=== PATIENT | male | born 1965 | race Caucasian/White ===

== ENCOUNTER 2017-03-19 09:07 | Inpatient (IN) | payer OTHER ==
[2017-03-19] VITALS (7 sets, daily range): BP systolic 114–130; BP diastolic 74–84; PULSE 78–82; TEMP 37.1–37.5; O2SAT 93–95; Ht 172.7 cm; Wt 86.2 kg
[~2017-03-19] VITALS: Ht 172.7 cm; Wt 86.2 kg
[~2017-03-19 09:07] MED LIST: ASPI81TA28 PO; ATOR-24 PO; CLC100 PO; LISI-461 PO; MRLP527 PO
[2017-03-19] MEDS ORDERED: SODIUM CHLORIDE 0.9% 1000ML 500 ML IV STA (09:20)
[2017-03-19] MEDS ORDERED: NITROGLYCERIN OINT 2% 1GM PACKET EXT STA (09:20)
[2017-03-19 09:32] LABS: HEMATOCRIT 46.6 % (42-52); MEAN CELL VOLUME 103.3 fL (80-100); MEAN CORPUSCULAR HEMOGLOBIN 37.7 pg (25-34); MEAN CORPUSCULAR HGB CONC 36.5 g/dl (32-36); MEAN PLATELET VOLUME 10.5 fL (7.4-10.4); PLATELET COUNT 266 K/uL (130-400); RED BLOOD COUNT 4.51 M/uL (4.7-6.1); WHITE BLOOD COUNT 9.05 K/uL (4.8-10.8)
[2017-03-19 09:36] LABS: PROTHROMBIN TIME (PATIENT) 10.9 SECONDS (9.0-12.0)
[2017-03-19 09:41] LABS: ALT/SGPT 55 U/L (12-78); AST/SGOT 25 U/L (15-37); BLOOD UREA NITROGEN 6 mg/dl (7-18); BUN/CREATININE RATIO 6.5 (10-20); CARBON DIOXIDE 28 mmol/L (21-32); CHLORIDE 102 mmol/L (98-107); CREATININE 0.86 mg/dl (0.60-1.40); GLUCOSE 114 mg/dl (70-99); SODIUM 141 mmol/L (136-145)
[2017-03-19 09:43] LABS: ALKALINE PHOSPHATASE 81 U/L (45-117); CKMB/CK RATIO 1.3 (0-3.0)
--- NOTE | 2017-03-19 09:48 | DIAGNOSTIC IMAGING REPORT ---
SINGLE VIEW CHEST CLINICAL HISTORY: Atypical chest pain. FINDINGS: An AP, portable, upright chest radiograph is compared to study dated 11/30/2014 and correlated with chest CT dated 08/29/2015. The examination is degraded by portable technique and patient rotation. The heart is enlarged and there is atherosclerotic calcification of the thoracic aorta. Mild pulmonary vascular congestion is suggested. Chronic interstitial thickening is similar to previous. There is no lobar consolidation or large pleural effusion. No pneumothorax is seen. The skeletal structures are osteopenic. There are healed right-sided rib fractures. IMPRESSION: 1. Cardiomegaly. Mild pulmonary vascular congestion is suggested. Clinical correlation will be required. 2. No airspace consolidation or large pleural effusion is identified Electronically signed by: Mayito Niño M.D. 03/19/2017 9:47 AM Dictated Date/Time: 03/19/2017 9:46 AM
[2017-03-19] MEDS: MoRPHine SULFATE 4 MG/ML 1 ML CARP\\VIAL IV PRN ×2 (10:42→12:10)
[2017-03-19 10:59] LABS: ESTIMATED AVERAGE GLUCOSE 103 mg/dl; HA1C FLAG Normal (Normal)
[2017-03-19] MEDS ORDERED: ATORVASTATIN 40 MG TAB PO SCH (11:50)
[2017-03-19] MEDS ORDERED: METOPROLOL TARTRATE 50 MG TAB PO STA (11:58)
[2017-03-19] MEDS ORDERED: ZOLPIDEM TARTRATE 5 MG TAB PO PRN (12:00)
[2017-03-19] MEDS ORDERED: MoRPHine SULFATE 4 MG/ML 1 ML CARP\\VIAL IV PRN (12:00)
[2017-03-19] MEDS ORDERED: ACETAMINOPHEN 325 MG TAB PO PRN (12:00)
[2017-03-19] MEDS ORDERED: ONDANSETRON INJ 2 MG/ML 2 ML VIAL IV PRN (12:00)
[2017-03-19] MEDS ORDERED: NITROGLYCERIN 0.4 MG SL PER TAB CHARGE SL PRN (12:00)
[2017-03-19] MEDS ORDERED: HEPARIN SOD 5000 UNIT/0.5 ML CARP ONE (12:25)
[2017-03-19] MEDS ORDERED: HEPARIN 25000 UNIT/500 ML D5W ONE (12:25)
--- NOTE | 2017-03-19 12:40 | Medical Student: [facility] ---
Med Student History & Physical Date & Time of Service: Mar 19, 2017 at 12:01 Chief Complaint: Chest Pain Primary Care Physician: Ramsey Collado D.O.Int.Med. History of Present Illness Source: patient Mr. Knutson is a 51 year old male with a PMH significant for inferior wall STEMI in 2009 with thrombectomy of right coronary artery, HTN, depression, acute costochondritis, alcohol intoxication, and fracture of metatarsal bone who presented this morning with chest pain that began at 0730. The chest pain was described as tightness and woke him up from sleep. He had associated radiation of pain to his left shoulder and left upper arm. There was no associated SOB, diaphoresis, or nausea at the time. At home, he took Nitro and 2 ASA before ambulance arrived. ALS then administered 324 ASA and 3 Nitro which provided relief. On admission to the ED, he was tachycardic at 98, hypertensive at 142/ 85 and afebrile. Initial EKG showed NS, possible ST elevation in anterior leads , evidence of prior infarct with q waves in II, III, and AVF, and a long QTc of 521. He continues to have 5/10 baseline tightness pain and intermittent 10/10 sharp, stabbing pain. He continues to be tachycardic at 92, but is now hypotensive at 125/88 and is sating well at 94% on RA. He was given 500 cc NS, nitro ointment, and 4 mg Morphine at 1030. He has not experienced chest pain since his last VA in 2009. At that time, he had a catheterization which showed 100% thrombosis, but no atherosclerotic disease in any other coronary arteries. Echo at the time showed normal EF of 60- 65%, inferior wall & septal hypokinesis, right ventricular systolic dysfunction & wall motion abnormalities and grade 1 diastolic dysfunction. Past Medical/Surgical History 1) Inferior wall STEMI (2009) s/p catheterization with thrombectomy 2) HTN 3) Depression 4) Alcohol abuse 5) Acute costochondritis 6) Fracture metatarsal bone Family History Father - suicide Social History Smoking Status: Current Every Day Smoker (3 ppd since 17 years old ) Alcohol Use: heavy (5th of vodka daily ) Drug Use: none Immunizations History of Influenza Vaccine: No History of Tetanus Vaccine?: No History of Pneumococcal: No History of Hepatitis B Vaccine: No Allergies Coded Allergies: No Known Allergies (Unverified , 7/5/17) Medications No Active Prescriptions or Reported Meds Review of Systems Constitutional: No fever, No chills Eyes: No worsening of vision ENT: No hearing loss Respiratory: + shortness of breath, No cough, No wheezing Cardiovascular: + chest pain, No edema, No palpitations Abdomen: No pain, No nausea, No vomiting, No diarrhea, No constipation Musculoskeletal: No joint pain Genitourinary - Male: No hematuria, No dysuria Psychiatric: + depression symptoms Physical Exam Vital Signs (24 Hours) Date Time Temp Pulse Resp B/P (MAP) Pulse Ox O2 Delivery O2 Flow Rate FiO2 03/19/17 11:28 99 16 138/88 99 Room Air 03/19/17 10:41 99 16 129/80 94 Room Air 03/19/17 10:31 94 Room Air 03/19/17 09:49 92 17 125/88 94 Room Air 03/19/17 09:14 100 Room Air 03/19/17 09:14 100 Room Air 03/19/17 09:14 37.2 97 17 142/85 96 Room Air 03/19/17 09:12 98 General Appearance: WD/WN, + mild distress Head: normocephalic, atraumatic Eyes: PERRL, EOMI, sclerae normal ENT: normal ENT inspection Neck: supple, no adenopathy, thyroid normal Respiratory/Chest: chest non-tender, lungs clear, normal breath sounds, no respiratory distress Cardiovascular: regular rate, rhythm, no edema, no gallop, no JVD, no murmur, normal peripheral pulses Abdomen/GI: normal bowel sounds, non tender, soft, no organomegaly Extremities/Musculoskelatal: no calf tenderness, normal capillary refill, no pedal edema 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, no motor/sensory deficits Diagnostics Laboratory Results Results Past 24 Hours Test 03/19/17 09:10 03/19/17 11:51 Range/Units White Blood Count 9.05 4.8-10.8 K/uL Red Blood Count 4.51 4.7-6.1 M/uL Hemoglobin 17.0 14.0-18.0 g/dL Hematocrit 46.6 42-52 % Mean Corpuscular Volume 103.3 80-100 fL Mean Corpuscular Hemoglobin 37.7 25-34 pg Mean Corpuscular Hemoglobin Concent 36.5 32-36 g/dl RDW Standard Deviation 49.3 36.4-46.3 fL RDW Coefficient of Variation 13.1 11.5-14.5 % Platelet Count 266 130-400 K/uL Mean Platelet Volume 10.5 7.4-10.4 fL Prothrombin Time 10.9 9.0-12.0 SECONDS Prothromb Time International Ratio 1.0 0.9-1.1 Activated Partial Thromboplast Time 25.1 21.0-31.0 SECONDS Partial Thromboplastin Ratio 1.0 Sodium Level 141 136-145 mmol/L Potassium Level 3.0 3.5-5.1 mmol/L Chloride Level 102 98-107 mmol/L Carbon Dioxide Level 28 21-32 mmol/L Anion Gap 11.0 3-11 mmol/L Blood Urea Nitrogen 6 7-18 mg/dl Creatinine 0.86 0.60-1.40 mg/dl Est Creatinine Clear Calc Drug Dose 106.1 ml/min Estimated GFR () 115.6 Estimated GFR (Non- 99.7 BUN/Creatinine Ratio 6.5 10-20 Random Glucose 114 70-99 mg/dl Estimated Average Glucose 103 mg/dl Hemoglobin A1c 5.2 4.5-5.6 % Calcium Level 9.0 8.5-10.1 mg/dl Magnesium Level 2.0 1.8-2.4 mg/dl Total Bilirubin 0.2 0.2-1 mg/dl Aspartate Amino Transf (AST/SGOT) 25 15-37 U/L Alanine Aminotransferase (ALT/SGPT) 55 12-78 U/L Alkaline Phosphatase 81 45-117 U/L Total Creatine Kinase 63 39-308 U/L Creatine Kinase MB 0.8 0.5-3.6 ng/ml Creatine Kinase MB Ratio 1.3 0-3.0 Troponin I < 0.015 0-0.045 ng/ml Total Protein 6.9 6.4-8.2 gm/dl Albumin 3.5 3.4-5.0 gm/dl Globulin 3.4 2.5-4.0 gm/dl Albumin/Globulin Ratio 1.0 0.9-2 Diagnostic Radiology CXR 03/19/17 SINGLE VIEW CHEST CLINICAL HISTORY: Atypical chest pain. FINDINGS: An AP, portable, upright chest radiograph is compared to study dated 11/30/2014 and correlated with chest CT dated 08/29/2015. The examination is degraded by portable technique and patient rotation. The heart is enlarged and there is atherosclerotic calcification of the thoracic aorta. Mild pulmonary vascular congestion is suggested. Chronic interstitial thickening is similar to previous. There is no lobar consolidation or large pleural effusion. No pneumothorax is seen. The skeletal structures are osteopenic. There are healed right-sided rib fractures. IMPRESSION: 1. Cardiomegaly. Mild pulmonary vascular congestion is suggested. Clinical correlation will be required. 2. No airspace consolidation or large pleural effusion is identified Impression Assessment and Plan Mr. Knutson is a 51 year old male with a PMH significant for inferior wall STEMI in 2009 with thrombectomy of right coronary artery, HTN, depression, acute costochondritis, alcohol intoxication, and fracture of metatarsal bone who presented this morning with chest pain that began at 0730. CXR showed cardiomegaly and pulmonary vascular congestion, but no pneumothorax or consolidation. EKG showed NS, tachycardia of 99 bpm, possible ST elevation in the anterior leads, long QTc of 521, and evidence of prior inferior infarct with q waves in II, III, and AVF. It is likely this patient has ACS based on presentation, EKG findings, hx of prior VA, and risk factors. His risk factors for ACS include age of 51, smoking history, uncontrolled HTN, and being overweight. CXR and the fact the patient is afebrile with no cough rule out pneumonia. Aortic dissection was considered, but the patient is not having pain radiating to his back. PE was also considered, but the patient is not hypoxic and has no complaints of lower extremity pain or swelling. Additionally, MSK related pain was considered, but the patient is not tender to palpation of the chest on examination. 1) ACS - most likely STEMI based on EKG findings -repeat EKG, possibility for PCI if STEMI evident (ST elevation of >1mm in 2 contiguous leads) -initial troponin @ 0910 <0.015, track serial troponin levels -start metoprolol 25 mg PO BID -start unfractionated heparin 60 mg/kg bolus then 12 units/kg/hr (do not exceed 5000 units), track PTT with target 1.5-2 -start ASA 81 mg PO daily -start Atorvastatin 80 mg PO daily -start JITENDRA-I if EF <40% -start Plavix if patient undergoes catheterization and stenting, post-procedure -risk factor assessment of ACS -hgb A1C 5.2, no pre-diabetes -fasting lipid panel ordered -start O2 NC, sating at 93% -morphine and Nitro PRN -consult cardiology -admit to telemetry 2) Hypokalemia -potassium 3 on admission -Mg normal at 2 -start IVF w/ 10 mEq KCl 3) Hyperglycemia -glucose on admission 114 -HbA1C 5.2, no prediabetes evident -continue to track glucose with daily CMP 4) Prior inferior wall STEMI in 2009 -start ASA 81 mg PO daily -start metoprolol 25 mg PO BID 5) HTN - Hypertensive on admission at 142/85, normotensive now at 125/88 -start metoprolol 25 mg PO BID -start JITENDRA-I if EF <40% 6) Pulmonary vascular congestion on CXR - investigate for CHF based on patient' s hx of VA and various risk factors -2 D echo ordered, will evaluate mean arterial pressure for possible pulmonary HTN Level of Care Telemetry Advanced Directives Existing Living Will: No 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
[2017-03-19] MEDS ORDERED: HEPARIN IV BOLUS 6,000 UNIT in SYRINGE 0 ML IV ONE (12:45)
--- NOTE | 2017-03-19 13:48 | EMERGENCY ROOM VISIT NOTE ---
History Report prepared by Sandra: Nelia Urena Under the Supervision of: Dr. Mayito Hills M.D. First contact with patient: 09:16 Chief Complaint: CHEST PAIN Stated Complaint: CHEST PAIN Nursing Triage Summary: C/O CP that started this AM. Woke him from sleep. [place] 6 years ago. Tightness in center of chest. Denies radiating pain at present time. ALS gave 324 ASA and 3 nitro which patient says helped. History of Present Illness The patient is a 51 year old male who presents to the Emergency Room with complaints of nearly resolved midsternal chest pain that started about 2 hours ago, around 0730. The patient came to the ED via ambulance from home. He was given 324 mg of aspirin and 3 nitroglycerin en route to the ED which seemed to improve his pain. He took a nitroglycerin at home as well as 2 aspirin prior to the ambulance arrival. He describes the pain as tightness currently. He is also experiencing pain in his left shoulder and upper arm. He denies any shortness of breath, nausea, or sweating associated with the pain. The patient had an [place] 6 years ago and had 1 stent placed at that time. The patient did not experience any pain yesterday. The patient is a smoker and has hypertension but is noncompliant with his medications. He denies any history of diabetes. The patient does not use aspirin on a regular basis. Source of History: patient Onset: about 2 hours ago, around 0730 Position: chest (midsternal) Quality: other (tightness) Timing: resolved Modifying Factors (Relieving): other (aspirin, nitroglycerin) Associated Symptoms: No diaphoresis, No SOB, No nausea Note: left shoulder, left upper arm Review of Systems See HPI for pertinent positives & negatives. A total of 10 systems reviewed and were otherwise negative. Past Medical & Surgical Medical Problems: (1) ACS (acute coronary syndrome) (2) DEPRESSIVE DISORDER NEC (3) DIAB JULIÁN WO COMPL, TYPE II OR UNSPEC TYPE, NOT UNCNTRLD (4) HEART DISEASE NOS (5) HYPERTENSION NOS (6) Infer AMI NEC, init episd (7) TOBACCO USE DISORDER Family History No significant family history Social History Smoking Status: Heavy Tobacco Smoker Alcohol Use: heavy Marital Status: in relationship Housing Status: lives with significant other Current/Historical Medications No Active Prescriptions or Reported Meds Allergies Coded Allergies: No Known Allergies (Unverified , 03/19/17) Physical Exam Vital Signs Date Time Temp Pulse Resp B/P (MAP) Pulse Ox O2 Delivery O2 Flow Rate FiO2 03/19/17 13:52 89 18 111/79 95 Nasal Cannula 2.0 03/19/17 13:06 93 03/19/17 12:55 93 17 129/84 96 Nasal Cannula 2.0 03/19/17 12:10 96 Nasal Cannula 2.0 03/19/17 12:08 93 16 125/84 95 Room Air 03/19/17 11:28 99 16 138/88 99 Room Air 03/19/17 10:41 99 16 129/80 94 Room Air 03/19/17 10:31 94 Room Air 03/19/17 09:49 92 17 125/88 94 Room Air 03/19/17 09:14 100 Room Air 03/19/17 09:14 100 Room Air 03/19/17 09:14 37.2 97 17 142/85 96 Room Air 03/19/17 09:12 98 Physical Exam GENERAL: Patient is in no acute distress. HEENT: No acute trauma, normocephalic atraumatic, mucous membranes moist, no nasal congestion, no scleral icterus. NECK: No stridor, no adenopathy, no meningismus, trachea is midline. CHEST: Nontender chest wall. LUNGS: Clear to auscultation bilaterally, no wheeze, no rhonchi, breath sounds equal. HEART: Without murmurs gallops or rubs, regular rate and rhythm. ABDOMEN: Soft, nontender, bowel sounds positive, no hernias, no peritonitis. EXTREMITIES: No cyanosis or edema, full range of motion of all the joints without pain or difficulty, no signs for acute trauma. NEUROLOGIC: Oriented x 3, no acute motor or sensory deficits, no focal weakness. SKIN: No rash, no jaundice, no diaphoresis. Medical Decision & Procedures ER Provider Diagnostic Interpretation: Radiology results as stated below per my review and radiologist interpretation: SINGLE VIEW CHEST FINDINGS: An AP, portable, upright chest radiograph is compared to study dated 11/30/2014 and correlated with chest CT dated 08/29/2015. The examination is degraded by portable technique and patient rotation. The heart is enlarged and there is atherosclerotic calcification of the thoracic aorta. Mild pulmonary vascular congestion is suggested. Chronic interstitial thickening is similar to previous. There is no lobar consolidation or large pleural effusion. No pneumothorax is seen. The skeletal structures are osteopenic. There are healed right-sided rib fractures. IMPRESSION: 1. Cardiomegaly. Mild pulmonary vascular congestion is suggested. Clinical correlation will be required. 2. No airspace consolidation or large pleural effusion is identified Electronically signed by: Mayito Niño M.D. 03/19/2017 9:47 AM Dictated Date/Time: 03/19/2017 9:46 AM Laboratory Results 03/19/17 09:10 03/19/17 09:10 Test 03/19/17 09:10 Red Blood Count 4.51 M/uL (4.7-6.1) Mean Corpuscular Volume 103.3 fL (80-100) Mean Corpuscular Hemoglobin 37.7 pg (25-34) Mean Corpuscular Hemoglobin Concent 36.5 g/dl (32-36) RDW Standard Deviation 49.3 fL (36.4-46.3) RDW Coefficient of Variation 13.1 % (11.5-14.5) Mean Platelet Volume 10.5 fL (7.4-10.4) Prothrombin Time 10.9 SECONDS (9.0-12.0) Prothromb Time International Ratio 1.0 (0.9-1.1) Activated Partial Thromboplast Time 25.1 SECONDS (21.0-31.0) Partial Thromboplastin Ratio 1.0 Anion Gap 11.0 mmol/L (3-11) Est Creatinine Clear Calc Drug Dose 106.1 ml/min Estimated GFR () 115.6 Estimated GFR (Non- 99.7 BUN/Creatinine Ratio 6.5 (10-20) Estimated Average Glucose 103 mg/dl Hemoglobin A1c 5.2 % (4.5-5.6) Calcium Level 9.0 mg/dl (8.5-10.1) Magnesium Level 2.0 mg/dl (1.8-2.4) Total Bilirubin 0.2 mg/dl (0.2-1) Aspartate Amino Transf (AST/SGOT) 25 U/L (15-37) Alanine Aminotransferase (ALT/SGPT) 55 U/L (12-78) Alkaline Phosphatase 81 U/L (45-117) Total Protein 6.9 gm/dl (6.4-8.2) Albumin 3.5 gm/dl (3.4-5.0) Globulin 3.4 gm/dl (2.5-4.0) Albumin/Globulin Ratio 1.0 (0.9-2) Triglycerides Level 182 mg/dl (0-150) Cholesterol Level 213 mg/dl (0-200) HDL Cholesterol 72 mg/dl LDL Cholesterol, Calculated 105 mg/dl VLDL Cholesterol, Calculated 36 mg/dl Cholesterol/HDL Ratio 3.0 Hepatitis C Antibody Screen NEG (NEG) Laboratory results reviewed by me. Medications Administered Medications (Trade) Dose Ordered Sig/Patty Route Start Time Stop Time Status Last Admin Dose Admin Sodium Chloride 500 ml @ 999 mls/hr Q31M STAT IV 03/19/17 09:20 03/19/17 09:50 DC 03/19/17 09:20 999 MLS/HR Nitroglycerin (Nitroglycerin 2% Oint) 1 inch NOW STAT EXT 03/19/17 09:20 03/19/17 09:22 DC 03/19/17 09:34 1 INCH Morphine Sulfate (MoRPHine SULFATE INJ) 4 mg Q15M PRN IV 03/19/17 10:30 04/02/17 10:29 03/19/17 12:10 4 MG Atorvastatin Calcium (Lipitor Tab) 80 mg 1150 PO 03/19/17 11:50 03/19/17 13:40 DC 03/19/17 13:51 80 MG Metoprolol Tartrate (Lopressor Tab) 25 mg NOW STAT PO 03/19/17 11:58 03/19/17 12:22 DC 03/19/17 13:52 25 MG Heparin Sodium/ Dextrose (Heparin 25,000 Unit/500ml D5W) 25,000 unit STK-MED ONCE .ROUTE 03/19/17 12:25 03/19/17 12:26 DC 03/19/17 12:30 25,000 UNIT Heparin Sodium (Porcine) (Heparin Sq 5000 Unit/0.5ml) 10,000 unit STK-MED ONCE .ROUTE 03/19/17 12:25 03/19/17 12:26 DC 03/19/17 12:29 6,000 UNIT ECG Indication: chest pain Rate (beats per minute): 99 Rhythm: normal sinus Findings: no ectopy, other (nonspecific T wave change, no acute [place]) Change: Repeat EKG on 03/19/2017 revealed a normal sinus rhythm, rate of 86, no acute ischemic changes, no ectopy ED Course 0917: The patient was evaluated in room B11. A complete history and physical exam was performed. 0920: Ordered Nitroglycerin 1 inch EXT, Sodium Chloride 500 ml @ 999 mls/hr IV 0949: The patient's nurse did a repeat EKG because the patient started to experience chest pain again. 1019: Upon reexamination the patient is resting comfortably. I discussed results and treatment plan with the patient. He verbalizes agreement and understanding. The patient will be evaluated for further management. 1105: Dr. Goodwin of the [facility] is evaluating the patient for further management. Medical Decision Differential diagnoses considered include [place], angina, musculoskeletal, aortic dissection, PE, pneumonia, anemia. Medication Reconciliation: I attest that I have personally reviewed the patient' s current medication list. Blood Pressure Screening: Patient was found to have a midly elevated blood pressure and was referred to his primary doctor for recheck and further treatment. There is no leukocytosis or concerning anemia. No significant electrolyte abnormality, kidney failure or hepatitis. There is no coagulopathy. EKG shows a normal sinus rhythm, no acute ischemia. Cardiac enzyme testing 1 is not consistent with acute cardiac injury. Chest x-ray does not show pneumonia, mediastinal widening or pneumothorax. The patient was given IV saline, he was given nitroglycerin paste. Required IV morphine for additional pain control. The patient presents with chest pain which sounds possibly cardiac. He has a cardiac history. Further workup in the hospital is warranted. I spoke to the patient, I talked with case management. The on-call hospitalist was consulted. Impression Primary Impression: Precordial chest pain Scribe Attestation The scribe's documentation has been prepared under my direction and personally reviewed by me in its entirety. I confirm that the note above accurately reflects all work, treatment, procedures, and medical decision making performed by me. Departure Information Dispostion Being Evaluated By Hospitalist Prescriptions No Active Prescriptions or Reported Meds Referrals Ramsey Collado D.O.Int.Med. (PCP) Patient Instructions My [facility]
[2017-03-19] MEDS: MoRPHine SULFATE 2 MG/ML CARP IV PRN (15:35)
[2017-03-19] MEDS ORDERED: NURSING DECISION MEDICATION ORDER SCH (16:00)
[2017-03-19] MEDS: POTASSIUM CHLR 10 MEQ / WTR 10 MEQ in PREMIXED WATER 100 ML IV SCH ×3 (16:05→17:30)
[2017-03-19] MEDS: NSS + 20MEQ KCL 1000ML 1,000 ML IV SCH (16:06)
[2017-03-19] MEDS: HEPARIN 25,000 UNIT/500ML D5W 500 ML IV PRN (16:08)
--- NOTE | 2017-03-19 16:24 | Cardiology Consultation ---
Cardiology Consultation Date of Consultation: Mar 19, 2017. Requesting Physician: Dr. Goodwin Reason for Consultation: Chest pain Pt evaluation today including: conversation w/ patient, conversation w/ family , physical exam, lab review, review of studies, review of inpatient medication list, conversation w/ attending History of Present Illness This is a 51-year-old gentleman who has a history of right coronary artery occlusion which were cried thrombectomy in 2009. He has been doing well from the cut vascular standpoint since then, however awoke at around 8:00 this morning with waxing and waning chest discomfort. The discomfort sounds pleuritic , is exacerbated by inspiration and does not have radiation to his left arm or shoulder. It does not seem to be exercise related. It is different from his symptoms in 2010. He has no shortness of breath or palpitations with it. Past Medical/Surgical History (1) DEPRESSIVE DISORDER NEC (2) DIAB JULIÁN WO COMPL, TYPE II OR UNSPEC TYPE, NOT UNCNTRLD (3) HYPERTENSION NOS (4) TOBACCO USE DISORDER (5) Fracture of metatarsal bone (6) Recurrent epistaxis Family History No significant family history Social History Smoking Status: Heavy Tobacco Smoker History of Alcohol Use: Yes (1/5 VODKA A DAY OR MORE) Review of Systems Constitutional: No fever, No weight loss, No weakness Respiratory: No cough, No wheezing, No shortness of breath, No dyspnea on exertion Cardiac: + chest pain (Worse with inspiration), No orthopnea, No PND, No edema , No palpitations Abdomen: No pain, No nausea, No vomiting, No diarrhea, No GI bleeding Male : No urinary frequency, No nocturia more than once/night, No slowing stream, No sexual dysfunction Neurologic: No paralysis, No weakness, No numbness/tingling, No balance problems Heme: No abnormal bleeding/bruising, No clotting problems Endo: No fatigue Skin: No problem reported All Other Systems: Reviewed and Negative Allergies Coded Allergies: No Known Allergies (Unverified , 03/19/17) Medications Current Inpatient Medications Medications (Trade) Dose Ordered Sig/Patty Route Start Time Stop Time Status Last Admin Dose Admin Potassium Chloride 10 meq/ Prmx 100 ml @ 100 mls/hr Q1H IV 03/19/17 15:30 03/19/17 18:29 03/19/17 16:05 100 MLS/HR Atorvastatin Calcium (Lipitor Tab) 80 mg QAM PO 03/20/17 09:00 04/19/17 08:59 Ondansetron HCl (Zofran Inj) 4 mg Q6H PRN IV 03/19/17 12:00 04/18/17 11:59 Potassium Chloride/Sodium Chloride 1,000 ml @ 100 mls/hr Q10H IV 03/19/17 15:45 04/18/17 15:44 03/19/17 16:06 100 MLS/HR Acetaminophen (Tylenol Tab) 650 mg Q4H PRN PO 03/19/17 12:00 04/18/17 11:59 Zolpidem Tartrate (Ambien Tab) 5 mg HSZ PRN PO 03/19/17 12:00 04/18/17 11:59 Nitroglycerin (Nitrostat Tab) 0.4 mg UD PRN SL 03/19/17 12:00 04/18/17 11:59 Metoprolol Tartrate (Lopressor Tab) 25 mg BID PO 03/19/17 21:00 04/18/17 20:59 Aspirin (Ecotrin Tab) 81 mg QAM PO 03/20/17 09:00 04/19/17 08:59 Morphine Sulfate (MoRPHine SULFATE INJ) 2 mg Q2H PRN IV 03/19/17 12:00 04/02/17 11:59 03/19/17 15:35 2 MG Morphine Sulfate (MoRPHine SULFATE INJ) 4 mg Q2H PRN IV 03/19/17 12:00 04/02/17 11:59 Heparin Sodium/ Dextrose 500 ml @ 27 mls/hr [id number] PRN IV 03/19/17 15:30 04/18/17 15:29 03/19/17 16:08 27 MLS/HR Nitroglycerin (Nitroglycerin 2% Oint) 2 inch Q8 EXT 03/19/17 22:00 04/18/17 21:59 Physical Exam Vital Signs Past 12 Hours Date Time Temp Pulse Resp B/P (MAP) Pulse Ox O2 Delivery O2 Flow Rate FiO2 03/19/17 15:05 37.2 78 19 118/79 (92) 93 Nasal Cannula 2.0 03/19/17 13:52 89 18 111/79 95 Nasal Cannula 2.0 03/19/17 13:06 93 03/19/17 12:55 93 17 129/84 96 Nasal Cannula 2.0 03/19/17 12:10 96 Nasal Cannula 2.0 03/19/17 12:08 93 16 125/84 95 Room Air 03/19/17 11:28 99 16 138/88 99 Room Air 03/19/17 10:41 99 16 129/80 94 Room Air 03/19/17 10:31 94 Room Air 03/19/17 09:49 92 17 125/88 94 Room Air 03/19/17 09:14 100 Room Air 03/19/17 09:14 100 Room Air 03/19/17 09:14 37.2 97 17 142/85 96 Room Air 03/19/17 09:12 98 Constitutional: General Apperance: heathly-appearing Level of Distress: NAD Psychiatric: Mental Status: active & alert Head: normocephalic Eyes: EOM: EOMI ENMT: normal ENT inspection, hearing grossly normal Neck: supple, no masses Lungs: Respiratory effort: no dyspnea, good air movement Auscultation: breath sounds normal, no wheezing Cardiovascular: Heart Auscultation: RRR, no murmurs, no rubs, no gallops Peripheral Pulses: Bruits: none appreciated Abdomen: Bowel Sounds: normal Inspection & Palpation: soft, no tenderness, guarding & rebound, no masses Musculoskeletal: normal strength (5/5 throughout) Extremities: no edema Neurologic: Cranial Nerves: grossly intact Sensation: grossly intact Data Laboratory Results: Last 24 Hours Test 03/19/17 09:10 03/19/17 14:10 White Blood Count 9.05 K/uL Red Blood Count 4.51 M/uL Hemoglobin 17.0 g/dL Hematocrit 46.6 % Mean Corpuscular Volume 103.3 fL Mean Corpuscular Hemoglobin 37.7 pg Mean Corpuscular Hemoglobin Concent 36.5 g/dl RDW Standard Deviation 49.3 fL RDW Coefficient of Variation 13.1 % Platelet Count 266 K/uL Mean Platelet Volume 10.5 fL Prothrombin Time 10.9 SECONDS Prothromb Time International Ratio 1.0 Activated Partial Thromboplast Time 25.1 SECONDS Partial Thromboplastin Ratio 1.0 Sodium Level 141 mmol/L Potassium Level 3.0 mmol/L Chloride Level 102 mmol/L Carbon Dioxide Level 28 mmol/L Anion Gap 11.0 mmol/L Blood Urea Nitrogen 6 mg/dl Creatinine 0.86 mg/dl Est Creatinine Clear Calc Drug Dose 106.1 ml/min Estimated GFR () 115.6 Estimated GFR (Non- 99.7 BUN/Creatinine Ratio 6.5 Random Glucose 114 mg/dl Estimated Average Glucose 103 mg/dl Hemoglobin A1c 5.2 % Calcium Level 9.0 mg/dl Magnesium Level 2.0 mg/dl Total Bilirubin 0.2 mg/dl Aspartate Amino Transf (AST/SGOT) 25 U/L Alanine Aminotransferase (ALT/SGPT) 55 U/L Alkaline Phosphatase 81 U/L Total Creatine Kinase 63 U/L 45 U/L Creatine Kinase MB 0.8 ng/ml < 0.5 ng/ml Creatine Kinase MB Ratio 1.3 Troponin I < 0.015 ng/ml < 0.015 ng/ml Total Protein 6.9 gm/dl Albumin 3.5 gm/dl Globulin 3.4 gm/dl Albumin/Globulin Ratio 1.0 Triglycerides Level 182 mg/dl Cholesterol Level 213 mg/dl HDL Cholesterol 72 mg/dl LDL Cholesterol, Calculated 105 mg/dl VLDL Cholesterol, Calculated 36 mg/dl Cholesterol/HDL Ratio 3.0 Hepatitis C Antibody Screen NEG Imaging: No acute change EKG: ECG including with chest discomfort in his room now is normal, no acute changes Telemetry reviewed: SR, no significant arrhythmia Assessment & Plan 1. Chest discomfort: Waxing and waning but present for the most part since this AM before 0800, therefore over 8 hours. Recent second set of enzymes negative, ECG with chest pain negative for ischemia. Doubt this is a coronary event. Sounds pleuritic based on symptoms. Suggest continued enzyme trend, keep on telemetry overnight, no urgent intervention. Will keep NPO for tomorrow in case things change. 2. Hx RCA occlusion, at that time had substernal chest discomfort and inferior ST elevation. This does not seem to be similar. Thank You
[2017-03-19] MEDS ORDERED: NITROGLYCERIN OINT 2% 1GM PACKET EXT SCH (18:00)
[2017-03-19] MEDS ORDERED: NURSING VERBAL MED ORDER ONE (18:00)
[2017-03-19] MEDS ORDERED: LORAZEPAM 2 MG/ML 1 ML VIAL IV PRN (18:15)
[2017-03-19] MEDS: METOPROLOL TARTRATE 25 MG TAB PO SCH (18:38)
[2017-03-19 19:38] LABS: PARTIAL THROMBOPLASTIN RATIO 2.1
[2017-03-19] MEDS: THIAMINE HCL 100 MG TAB PO SCH (20:03)
[2017-03-19] MEDS ORDERED: METOPROLOL TARTRATE 25 MG TAB PO SCH (21:00)
[2017-03-19] MEDS: NITROGLYCERIN OINT 2% 1GM PACKET EXT SCH (22:20)
[2017-03-20] VITALS (7 sets, daily range): BP systolic 110–129; BP diastolic 72–82; PULSE 81–87; TEMP 36.7–37.3; O2SAT 94–96
[2017-03-20] MEDS: METOPROLOL TARTRATE 25 MG TAB PO SCH ×3 (00:09→11:07)
[2017-03-20] MEDS: NSS + 20MEQ KCL 1000ML 1,000 ML IV SCH ×2 (02:06→11:07)
--- NOTE | 2017-03-20 04:09 | History and Physical ---
History & Physical Date & Time of Service: Mar 20, 2017 at 03:59. The patient was seen on 03/19/2017. Chief Complaint: Acute Coronary Syndrome Primary Care Physician: Ramsey Collado D.O.Int.Med. History of Present Illness Source: patient The patient is a 51-year-old male who is brought to the emergency department by EMS with midsternal chest pain that began about 2 hours prior to arrival. En route he was given 3 had 24 mg of aspirin and 3 nitroglycerin which improved his pain. He had taken nitroglycerin at home and 2 aspirin prior to every once arrival. His symptoms are that of tightness in his chest with pain in his left shoulder and left upper arm. He did not have any associated shortness of breath , nausea, sweating, lower extremity discomfort or numbness. His significant past medical history is that of an inferior wall STEMI in June 2010 with catheterization revealing 100% RCA occlusion for which she underwent a thrombectomy, with 30% residual due to spasm, which is relieved by IV nitroglycerin, to reveal 100% flow postprocedure. Other significant medical history is a 3 pack per day smoker and drinks 1/5 of vodka daily. Past Medical/Surgical History Medical Problems: (1) DEPRESSIVE DISORDER NEC Status: Chronic (2) DIAB JULIÁN WO COMPL, TYPE II OR UNSPEC TYPE, NOT UNCNTRLD Status: Chronic (3) Fracture of metatarsal bone Status: Resolved (4) HEART DISEASE NOS Status: Chronic (5) HYPERTENSION NOS Status: Chronic (6) Infer AMI NEC, init episd Status: Chronic (7) Recurrent epistaxis Status: Chronic (8) TOBACCO USE DISORDER Status: Chronic Family History No significant family history Social History Smoking Status: Current Every Day Smoker Smokeless Tobacco Use: No Alcohol Use: heavy (5th of vodka daily ) Drug Use: none Marital Status: in relationship Occupational Status: employed Immunizations History of Influenza Vaccine: No History of Tetanus Vaccine?: No History of Pneumococcal: No History of Hepatitis B Vaccine: No Multi-Drug Resistant Organisms History of MDRO: No Allergies Coded Allergies: No Known Allergies (Unverified , 03/19/17) Home Medications No Active Prescriptions or Reported Meds Review of Systems The patient denies cough, lower extremity swelling, sore throat, fevers, chills , sweats, weight change, fatigue, vomiting, abdominal pain, pelvic pain, blood in urine or stool, dysuria, urinary frequency or urgency, lightheadedness, dizziness, headache, memory loss, rash, abnormal bruising or bleeding, imbalance , focal or generalized weakness, numbness or tingling legs, generalized arthralgias or myalgias, night sweats, or allergy symptoms. The review of systems is otherwise negative other than for that already noted above, and at least 10 systems have been reviewed. Physical Exam Vital Signs Date Time Temp Pulse Resp B/P (MAP) Pulse Ox O2 Delivery O2 Flow Rate FiO2 03/20/17 03:20 36.7 81 18 110/72 (85) 94 03/20/17 00:00 Nasal Cannula 2.0 03/19/17 23:52 37.5 81 18 117/75 (89) 94 2.0 03/19/17 23:02 37.1 80 22 130/84 (99) 95 Nasal Cannula 2.0 03/19/17 20:00 94 Nasal Cannula 2.0 03/19/17 19:35 37.4 82 19 114/74 (87) 94 Room Air 03/19/17 16:00 93 Nasal Cannula 2.0 03/19/17 15:05 37.2 78 19 118/79 (92) 93 Nasal Cannula 2.0 03/19/17 13:52 89 18 111/79 95 Nasal Cannula 2.0 03/19/17 13:06 93 03/19/17 12:55 93 17 129/84 96 Nasal Cannula 2.0 03/19/17 12:10 96 Nasal Cannula 2.0 03/19/17 12:08 93 16 125/84 95 Room Air 03/19/17 11:28 99 16 138/88 99 Room Air 03/19/17 10:41 99 16 129/80 94 Room Air 03/19/17 10:31 94 Room Air 03/19/17 09:49 92 17 125/88 94 Room Air 03/19/17 09:14 100 Room Air 03/19/17 09:14 100 Room Air 03/19/17 09:14 37.2 97 17 142/85 96 Room Air 03/19/17 09:12 98 The patient is awake, well-developed and adequately nourished, alert and oriented 3, normocephalic and atraumatic, lying in bed and in no acute distress. HEENT--PERRL, EOMI, mucous membranes and oropharynx dry. Neck--supple, no JVD or bruits, thyroid normal, trachea midline, no adenopathy. Heart--normal S1 and S2, no extra beats, no murmurs, rubs or gallops. Lungs--few coarse rhonchi bilaterally, but diminished throughout. No respiratory distress, no accessory muscle use. Abdomen--normal bowel sounds and soft, nontender and nondistended, no hernias or masses, no organomegaly. Extremities--no cyanosis, clubbing or edema. There are good distal pulses b/l. Dermatologic--normal skin turgor, normal color, warm and dry, no abnormal lymph nodes, no rash. Neurologic--cranial nerves II through XII grossly intact, motor and sensory examination normal. Rheumatologic--normal range of motion, nontender, muscles and joints. Psychiatric--normal affect. Diagnostics Laboratory Results Results Past 24 Hours Test 03/19/17 09:10 03/19/17 14:10 03/19/17 19:05 03/20/17 03:51 Range/Units White Blood Count 9.05 4.8-10.8 K/uL Red Blood Count 4.51 4.7-6.1 M/uL Hemoglobin 17.0 14.0-18.0 g/dL Hematocrit 46.6 42-52 % Mean Corpuscular Volume 103.3 80-100 fL Mean Corpuscular Hemoglobin 37.7 25-34 pg Mean Corpuscular Hemoglobin Concent 36.5 32-36 g/dl RDW Standard Deviation 49.3 36.4-46.3 fL RDW Coefficient of Variation 13.1 11.5-14.5 % Platelet Count 266 130-400 K/uL Mean Platelet Volume 10.5 7.4-10.4 fL Prothrombin Time 10.9 9.0-12.0 SECONDS Prothromb Time International Ratio 1.0 0.9-1.1 Activated Partial Thromboplast Time 25.1 54.6 21.0-31.0 SECONDS Partial Thromboplastin Ratio 1.0 2.1 Sodium Level 141 136-145 mmol/L Potassium Level 3.0 3.5-5.1 mmol/L Chloride Level 102 98-107 mmol/L Carbon Dioxide Level 28 21-32 mmol/L Anion Gap 11.0 3-11 mmol/L Blood Urea Nitrogen 6 7-18 mg/dl Creatinine 0.86 0.60-1.40 mg/dl Est Creatinine Clear Calc Drug Dose 106.1 ml/min Estimated GFR () 115.6 Estimated GFR (Non- 99.7 BUN/Creatinine Ratio 6.5 10-20 Random Glucose 114 70-99 mg/dl Estimated Average Glucose 103 mg/dl Hemoglobin A1c 5.2 4.5-5.6 % Calcium Level 9.0 8.5-10.1 mg/dl Magnesium Level 2.0 1.8-2.4 mg/dl Total Bilirubin 0.2 0.2-1 mg/dl Aspartate Amino Transf (AST/SGOT) 25 15-37 U/L Alanine Aminotransferase (ALT/SGPT) 55 12-78 U/L Alkaline Phosphatase 81 45-117 U/L Total Creatine Kinase 63 45 41 39-308 U/L Creatine Kinase MB 0.8 < 0.5 < 0.5 0.5-3.6 ng/ml Creatine Kinase MB Ratio 1.3 0-3.0 Troponin I < 0.015 < 0.015 < 0.015 0-0.045 ng/ml Total Protein 6.9 6.4-8.2 gm/dl Albumin 3.5 3.4-5.0 gm/dl Globulin 3.4 2.5-4.0 gm/dl Albumin/Globulin Ratio 1.0 0.9-2 Triglycerides Level 182 0-150 mg/dl Cholesterol Level 213 0-200 mg/dl HDL Cholesterol 72 mg/dl LDL Cholesterol, Calculated 105 mg/dl VLDL Cholesterol, Calculated 36 mg/dl Cholesterol/HDL Ratio 3.0 Hepatitis C Antibody Screen NEG NEG Diagnostic Radiology Patient Name: EDITH WOODS Unit Number: [id number] Dictated: 03/19/17945 Transcribed: 03/19/17945 EV Printed Date/Time: [~ rep prt dt]/[~ rep prt tm] [~ rep ct labl] - [~ rep ct ivnm] [facility] [place] [address] Dictated: 03/19/17945 Transcribed: 03/19/17945 EV Printed Date/Time: [~ rep prt dt]/[~ rep prt tm] [~ rep ct labl] - [~ rep ct ivnm] SINGLE VIEW CHEST CLINICAL HISTORY: Atypical chest pain. FINDINGS: An AP, portable, upright chest radiograph is compared to study dated 11/30/2014 and correlated with chest CT dated 08/29/2015. The examination is degraded by portable technique and patient rotation. The heart is enlarged and there is atherosclerotic calcification of the thoracic aorta. Mild pulmonary vascular congestion is suggested. Chronic interstitial thickening is similar to previous. There is no lobar consolidation or large pleural effusion. No pneumothorax is seen. The skeletal structures are osteopenic. There are healed right-sided rib fractures. IMPRESSION: 1. Cardiomegaly. Mild pulmonary vascular congestion is suggested. Clinical correlation will be required. 2. No airspace consolidation or large pleural effusion is identified Electronically signed by: Mayito Niño M.D. 03/19/2017 9:47 AM Dictated Date/Time: 03/19/2017 9:46 AM The status of this report is Signed. Draft = Not yet reviewed or approved by Radiologist. Signed = Reviewed and approved by Radiologist. <AttendingPhy></AttendingPhy> <FamilyPhy>Ramsey Collado D.O.Int.Med.</ FamilyPhy> <PrimaryPhy>Ramsey Collado D.O.Int.Med.</PrimaryPhy> <UnitNumber> [id number]</UnitNumber> <VisitNumber>[id number]</VisitNumber> <PatientName> EDITH WOODS</PatientName> <DateOfBirth>1965</DateOfBirth> <Location>C[facility] </Location> <ServiceDate>03/19/17</ServiceDate> <MNE>ESINDI</MNE> <OrderingPhy> [place] M.D.</OrderingPhy> <OrderingPhyMNE>f rep ord dr mota</ OrderingPhyMNE> <DictatingPhyMNE>f rep dict dr mota</DictatingPhyMNE> <CCListMNE> f rep ct mne</CCListMNE> <AdmittingPhyMNE>f pt admit dr mota</AdmittingPhyMNE> < AttendingPhyMNE>f pt attend dr mota</AttendingPhyMNE> <ConsultingPhyMNE>f pt consult dr mota</ConsultingPhyMNE> <FamilyPhyMNE>f pt fam dr mota</FamilyPhyMNE> <OtherPhyMNE>f pt other dr mota</OtherPhyMNE> < PrimaryPhyMNE>f pt prim care dr mota</PrimaryPhyMNE> <ReferringPhyMNE>f pt referring dr mota</ReferringPhyMNE> EKG EKG shows normal sinus rhythm at 99 bpm, nonspecific T wave changes in anterolateral leads. Impression Assessment and Plan Acute coronary syndrome/CAD/history of thrombectomy for 100% RCA occlusion June 2010--patient is being admitted to the telemetry unit for serial cardiac enzymes, cardiac rhythm monitoring and a 2-D echocardiogram with Dopplers will start metoprolol tartrate 25 mg by mouth twice a day Nitropaste 1 inch has been increased to 2 when she began to chest wall every 6 hours, aspirin 81 mg by mouth daily, and heparin drip IV standard-based protocol with bolus 5000. We'll consult cardiology. Hypokalemia--patient will be given 3 K riders, and follow serial laboratories. Tobacco use disorder--given counseling today, we'll hold on replacement at this time. Alcohol use disorder--start alcohol withdrawal program per protocol. Level of Care Telemetry Advanced Directives Existing Advance Directive: No Existing Living Will: No Existing Power of Bed Spring Maker: No Resuscitation Status FULL RESUSCITATION VTE Prophylaxis VTE Risk Assessment Done? Y/N: Yes Risk Level: Moderate Given or contraindicated: Other Anticoagulation (heparin IV per standard weight -based protocol) Social Service Consult None Apply
[2017-03-20 04:58] LABS: BLOOD UREA NITROGEN 10 mg/dl (7-18); CALCIUM 7.7 mg/dl (8.5-10.1); CARBON DIOXIDE 30 mmol/L (21-32); CHLORIDE 106 mmol/L (98-107); CREATININE 0.79 mg/dl (0.60-1.40); GLUCOSE 98 mg/dl (70-99); MAGNESIUM 1.8 mg/dl (1.8-2.4); POTASSIUM 3.3 mmol/L (3.5-5.1); SODIUM 141 mmol/L (136-145)
[2017-03-20 04:59] LABS: BASO % 1.6 %; BASO ABS # 0.16 K/uL (0-0.2); COMPLETE YES; EOS % 3.2 %; IG% 0.3 %; LYMPH % 26.3 %; LYMPH ABS # 2.57 K/uL (1.2-3.4); MEAN CELL VOLUME 106.2 fL (80-100); MEAN CORPUSCULAR HEMOGLOBIN 35.1 pg (25-34); MEAN PLATELET VOLUME 10.4 fL (7.4-10.4); MONO % 11.5 %; NEUT % 57.1 %; PLATELET COUNT 220 K/uL (130-400); RED BLOOD COUNT 4.05 M/uL (4.7-6.1); WHITE BLOOD COUNT 9.78 K/uL (4.8-10.8)
[2017-03-20 05:04] LABS: PARTIAL THROMBOPLASTIN RATIO 1.9; PROTHROMBIN TIME (PATIENT) 11.2 SECONDS (9.0-12.0)
[2017-03-20] MEDS: MoRPHine SULFATE 2 MG/ML CARP IV PRN (05:32)
[2017-03-20] MEDS: NITROGLYCERIN OINT 2% 1GM PACKET EXT SCH ×2 (05:39→13:55)
[2017-03-20] MEDS: HEPARIN 25,000 UNIT/500ML D5W 500 ML IV PRN (05:47)
[2017-03-20] MEDS: THIAMINE HCL 100 MG TAB PO SCH (07:43)
[2017-03-20] MEDS ORDERED: ASPIRIN 81 MG ECTAB PO SCH (09:00)
[2017-03-20] MEDS ORDERED: ATORVASTATIN 40 MG TAB PO SCH (09:00)
[2017-03-20] MEDS ORDERED: PERFLUTREN LIPID MICROSPHERE (DEFINITY) IV ONE (09:12)
--- NOTE | 2017-03-20 11:55 | ECHOCARDIOGRAM REPORT ---
*NOTICE TO RECEIVING [employer] This information is strictly Confidential and protected under [place] law. [place] law prohibits you from making any further disclosure of this information unless further disclosure is expressly permitted by the written consent of the person to whom it pertains or is authorized by law. A general authorization for the release of medical or other information is not sufficient for this purpose. Hospital accepts no responsibility if the information is made available to any other person, INCLUDING THE PATIENT. Interpretation Summary * Name: EDITH WOODS Study Date: 03/19/2017 03:28 PM BP: 125/93 mmHg * Patient Location: C.2T\S\S243\S\1 HR: 82 * : 1965 (M/d/yyyy) Gender: Male Height: 68 in * Age: 51 yrs Ethnicity: CA Weight: 187 lb * Ordering Physician: Main Goodwin * Referring Physician: Self, Referred * Performed By: Abbey Redd RCS * * Reason For Study: ACS * BSA: 2.0 m2 * -- Conclusions -- * There is borderline concentric left ventricular hypertrophy. * Left ventricular systolic function is low normal. * There are regional wall motion abnormalities as specified. * Compared to a study from 2009, the overall LV function is not as vigorous. Wall motion appears the same. Procedure Details * A contrast injection of Definity was performed to improve assessment of LV function. * Contrast was injected into an intravenous site in the left arm. * One vial of Definity ultrasound contrast was diluted in normal saline to a total volume of 10 ml. A total of '4' ml of solution was administered during imaging. * Lot # [id number] of Definity utilized for procedure. * Expiration date 1AUG18. * The attending nurse who injected the contrast agent was CEE ALCAZAR RN. Left Ventricle * The left ventricle is grossly normal size. * There is borderline concentric left ventricular hypertrophy. * Ejection Fraction = 50-55%. * Left ventricular systolic function is low normal. * There are regional wall motion abnormalities as specified. * Mild posterior hypokinesis Right Ventricle * The right ventricle is normal in size and function. Atria * The left atrium is not well visualized. * Right atrial size is normal. Mitral Valve * The mitral valve is grossly normal. * Significant mitral regurgitation is absent. Tricuspid Valve * The tricuspid valve is not well visualized. * Significant tricuspid regurgitation is absent. Aortic Valve * The aortic valve is trileaflet. * No hemodynamically significant valvular aortic stenosis. * There is no significant aortic regurgitation. Great Vessels * The aortic root is normal size. Pericardium/Pleural * The pericardium appears normal. * There is no pericardial effusion. MMode 2D Measurements and Calculations IVSd 0.92 cm LVIDd 5.2 cm LVIDs 3.7 cm LVPWd 1.2 cm IVS/LVPW 0.78 FS 29.4 % EDV(Teich) 130.9 ml ESV(Teich) 57.6 ml EF(Teich) 56.0 % EDV(cubed) 142.5 ml ESV(cubed) 50.1 ml EF(cubed) 64.9 % LV mass(C)d 210.0 grams LV mass(C)dI 105.7 grams/m\S\2 SV(Teich) 73.3 ml SI(Teich) 36.9 ml/m\S\2 SV(cubed) 92.5 ml SI(cubed) 46.6 ml/m\S\2 Ao root diam 3.1 cm Ao root area 7.5 cm\S\2 LVOT diam 2.0 cm LVOT area 3.3 cm\S\2 LVOT area(traced) 3.1 cm\S\2 LVAd ap4 23.8 cm\S\2 LVLd ap4 8.8 cm EDV(MOD-sp4) 55.6 ml EDV(sp4-el) 54.6 ml LVAs ap4 13.0 cm\S\2 LVLs ap4 7.4 cm ESV(MOD-sp4) 23.1 ml ESV(sp4-el) 19.3 ml EF(MOD-sp4) 58.5 % EF(sp4-el) 64.6 % LVAd ap2 27.1 cm\S\2 LVLd ap2 8.5 cm EDV(MOD-sp2) 70.6 ml EDV(sp2-el) 73.4 ml LVAs ap2 14.4 cm\S\2 LVLs ap2 7.1 cm ESV(MOD-sp2) 24.8 ml ESV(sp2-el) 24.6 ml EF(MOD-sp2) 64.9 % EF(sp2-el) 66.4 % LVLd %diff -3.62 % EDV(MOD-bp) 63.6 ml LVLs %diff -3.94 % ESV(MOD-bp) 23.1 ml EF(MOD-bp) 63.7 % SV(MOD-sp4) 32.5 ml SI(MOD-sp4) 16.4 ml/m\S\2 SV(MOD-sp2) 45.9 ml SI(MOD-sp2) 23.1 ml/m\S\2 SV(MOD-bp) 40.5 ml SI(MOD-bp) 20.4 ml/m\S\2 SV(sp4-el) 35.2 ml SI(sp4-el) 17.7 ml/m\S\2 SV(sp2-el) 48.8 ml SI(sp2-el) 24.6 ml/m\S\2
--- NOTE | 2017-03-20 13:14 | Cardiology Follow-Up ---
Subjective Date of Service: Mar 20, 2017. Pt evaluation today including: conversation w/ patient, conversation w/ family , physical exam, lab review, review of studies, review of inpatient medication list History of Present Illness Patient currently feels well, he was downstairs for a test and had chest discomfort through the night and this morning, but reports that on return to the room his discomfort has resolved and is no longer having chest discomfort. Social History Smoking Status: Current Every Day Smoker History of Alcohol Use: Yes (1/5 VODKA A DAY OR MORE) Review of Systems Respiratory: No cough, No wheezing, No shortness of breath, No dyspnea on exertion Cardiac: + chest pain (Worse with inspiration), No orthopnea, No PND, No edema , No palpitations Objective Vital Signs Past 12 Hours Date Time Temp Pulse Resp B/P (MAP) Pulse Ox O2 Delivery O2 Flow Rate FiO2 03/20/17 12:19 96 Nasal Cannula 2.0 03/20/17 11:15 36.8 87 20 129/80 (96) 95 Nasal Cannula 1.5 03/20/17 08:01 96 Nasal Cannula 2.0 03/20/17 07:08 37.3 81 20 126/82 (97) 96 Nasal Cannula 2.0 03/20/17 04:00 Nasal Cannula 2.0 03/20/17 03:20 36.7 81 18 110/72 (85) 94 Last Recorded Weight-Kilograms: 86.200 Intake & Output 8-Hour Column 03/20/17 03/21/17 03/21/17 16:00 00:00 08:00 Output Total 0 ml Balance 0 ml 24-Hour Column 03/21/17 08:00 Output Total 0 ml Balance 0 ml Physical Exam Constitutional: General Apperance: heathly-appearing Level of Distress: NAD Lungs: Respiratory effort: no dyspnea, good air movement Auscultation: breath sounds normal, no wheezing Cardiovascular: Heart Auscultation: RRR, no murmurs, no rubs, no gallops Peripheral Pulses: Bruits: none appreciated Extremities: no edema Data Laboratory Results: Last 24 Hours Test 03/19/17 14:10 03/19/17 19:05 03/20/17 04:02 03/20/17 04:03 Total Creatine Kinase 45 U/L 41 U/L 40 U/L Creatine Kinase MB < 0.5 ng/ml < 0.5 ng/ml < 0.5 ng/ml Creatine Kinase MB Ratio Troponin I < 0.015 ng/ml < 0.015 ng/ml < 0.015 ng/ml Activated Partial Thromboplast Time 54.6 SECONDS 50.6 SECONDS Partial Thromboplastin Ratio 2.1 1.9 Prothrombin Time 11.2 SECONDS Prothromb Time International Ratio 1.0 White Blood Count 9.78 K/uL Red Blood Count 4.05 M/uL Hemoglobin 14.2 g/dL Hematocrit 43.0 % Mean Corpuscular Volume 106.2 fL Mean Corpuscular Hemoglobin 35.1 pg Mean Corpuscular Hemoglobin Concent 33.0 g/dl Platelet Count 220 K/uL Mean Platelet Volume 10.4 fL Neutrophils (%) (Auto) 57.1 % Lymphocytes (%) (Auto) 26.3 % Monocytes (%) (Auto) 11.5 % Eosinophils (%) (Auto) 3.2 % Basophils (%) (Auto) 1.6 % Neutrophils # (Auto) 5.59 K/uL Lymphocytes # (Auto) 2.57 K/uL Monocytes # (Auto) 1.12 K/uL Eosinophils # (Auto) 0.31 K/uL Basophils # (Auto) 0.16 K/uL RDW Standard Deviation 52.5 fL RDW Coefficient of Variation 13.4 % Immature Granulocyte % (Auto) 0.3 % Immature Granulocyte # (Auto) 0.03 K/uL Sodium Level 141 mmol/L Potassium Level 3.3 mmol/L Chloride Level 106 mmol/L Carbon Dioxide Level 30 mmol/L Anion Gap 5.0 mmol/L Blood Urea Nitrogen 10 mg/dl Creatinine 0.79 mg/dl Est Creatinine Clear Calc Drug Dose 116.1 ml/min Estimated GFR () 119.7 Estimated GFR (Non- 103.2 BUN/Creatinine Ratio 13.0 Random Glucose 98 mg/dl Calcium Level 7.7 mg/dl Magnesium Level 1.8 mg/dl Imaging: Echo shows low normal left ventricular function Telemetry reviewed: Sinus rhythm, no significant arrhythmia. Assessment and Plan 1. Chest discomfort: Waxing and waning but present for the most part since the AM of 03/19/2017 before 0800, evidently resolved this morning. All cardiac enzymes negative, ECG with chest pain negative for ischemia. No evidence that this is a coronary event. Sounds pleuritic based on symptoms. 2. Hx RCA occlusion, at that time had substernal chest discomfort and inferior ST elevation. This does not seem to be similar. No further cardiovascular evaluation at this time. Thank You
--- NOTE | 2017-03-20 16:20 | Discharge Instructions ---
Discharge Instructions Date of Service Mar 20, 2017. Admission Reason for Admission: Acute Coronary Syndrome Discharge Discharge Diagnosis / Problem: Pleuritic chest pain Discharge Goals Goal(s): Decrease discomfort Activity Recommendations Activity Limitations: resume your previous activity . Current Hospital Diet Patient's current hospital diet: AHA Diet (Heart Healthy) Discharge Diet Recommended Diet: AHA Diet (Heart Healthy) Pending Studies Studies pending at discharge: no Laboratory Results Hemoglobin A1c Test 03/19/17 09:10 Range/Units Estimated Average Glucose 103 mg/dl Hemoglobin A1c 5.2 4.5-5.6 % Lipid Panel Test 03/19/17 09:10 Range/Units Triglycerides Level 182 H 0-150 mg/dl Cholesterol Level 213 H 0-200 mg/dl HDL Cholesterol 72 mg/dl Cholesterol/HDL Ratio 3.0 LDL Cholesterol, Calculated 105 mg/dl Medical Emergencies . Who to Call and When: Medical Emergencies: If at any time you feel your situation is an emergency, please call 911 immediately. . Non-Emergent Contact Non-Emergency issues call your: Primary Care Provider . Past History Medical & Surgical History: (1) DIAB JULIÁN WO COMPL, TYPE II OR UNSPEC TYPE, NOT UNCNTRLD (2) HYPERTENSION NOS (3) TOBACCO USE DISORDER (4) ACS (acute coronary syndrome) . "Provider Documentation" section prepared by Mathieu Lopez. . VTE Core Measure Inpt VTE Proph given/why not?: Other Anticoagulation (heparin IV per standard weight-based protocol)
[2017-03-20] MEDS ORDERED: LPT40 PO (16:24)
[2017-03-20] MEDS ORDERED: ASPEC81 PO (16:24)
--- NOTE | 2017-04-06 22:56 | Discharge Summary ---
Discharge Summary Date of Service Apr 06, 2017. Discharge Summary Admission Date: Mar 19, 2017 at 13:57 Discharge Date: Mar 20, 2017 Discharge Disposition: Home Principal Diagnosis: atypical chest pain Immunizations: Have You Had Influenza Vaccine: No History of Tetanus Vaccine?: No History of Pneumococcal: No History of Hepatitis B Vaccine: No Medication Reconciliation New Medications: Aspirin (Aspirin EC Low Dose) 81 Mg Ectab 81 MG PO QAM for 30 Days Atorvastatin (Atorvastatin Calcium) 40 Mg Tab 80 MG PO QAM for 30 Days, #30 TAB Hospital Course Patient presented with atypical chest pain. Symptoms resolved troponins were negative. Echocardiogram had an EF of 50-55%. Cardiology evaluated the patient and based upon the atypical nature recommended no further cardiac workup at this time. Was discharged home in stable condition will follow-up with his primary care doctor in 1 week. Total Time Spent: Greater than 30 minutes This includes examination of the patient, discharge planning, medication reconciliation, and communication with other providers. Discharge Instructions Please refer to the electronic Patient Visit Report (Discharge Instructions) for additional information.
== END 2017-03-20 17:41 | disposition home or self-care (01) | DRG 311 ==
LOC: EDBD 09:07 → C.EDB 09:08 → C.2T 13:57 → ENRESERV 14:34
PROVIDERS: ADMIT Hospitalist; ATTEND Hospitalist
DX: I24.9 Acute ischemic heart disease, unspecified (principal); R07.81 Pleurodynia; E11.9 Type 2 diabetes mellitus without complications; I10 Essential (primary) hypertension; F17.210 Nicotine dependence, cigarettes, uncomplicated; E87.6 Hypokalemia; Z72.89 Other problems related to lifestyle

== ENCOUNTER → 2017-03-26 | Outpatient (CLI) | payer OTHER ==
[~2017-03-26] MED LIST changes: +ASPEC81 PO; -ASPI81TA28 PO; -ATOR-24 PO; -CLC100 PO; -LISI-461 PO; +LPT40 PO; -MRLP527 PO
[2017-03-26 13:10] LABS: ALT/SGPT 31 U/L (12-78); AST/SGOT 13 U/L (15-37); BLOOD UREA NITROGEN 7 mg/dl (7-18); BUN/CREATININE RATIO 8.1 (10-20); CALCIUM 9.1 mg/dl (8.5-10.1); CARBON DIOXIDE 31 mmol/L (21-32); CHLORIDE 103 mmol/L (98-107); CREATININE 0.93 mg/dl (0.60-1.40); GLUCOSE 88 mg/dl (70-99); POTASSIUM 3.3 mmol/L (3.5-5.1); SODIUM 142 mmol/L (136-145)
[2017-03-26 13:12] LABS: ALB/GLOB RATIO 0.9 (0.9-2); ALKALINE PHOSPHATASE 89 U/L (45-117); CHOLESTEROL 186 mg/dl (0-200); CHOLESTEROL/HDL RATIO 2.9; HDL CHOLESTEROL 65 mg/dl; LDL CHOLESTEROL CALCULATED 105 mg/dl; TRIGLYCERIDES 78 mg/dl (0-150); VERY LOW DENSITY LIPOPROT CALC 16 mg/dl
== END | disposition home or self-care (01) ==
LOC: C.LABPBG 10:17
PROVIDERS: ATTEND Neuromusculoskeletal Medicine & OMM
DX: Z00.00 Encounter for general adult medical examination without abnormal findings (principal); I10 Essential (primary) hypertension

== ENCOUNTER → 2017-12-23 | Outpatient (CLI) | payer OTHER ==
[~2017-12-23] MED LIST changes: -ASPEC81 PO; +ASPI-320 PO
[2017-12-23 16:49] LABS: BASO % 1.9 %; BASO ABS # 0.14 K/uL (0-0.2); EOS % 2.3 %; EOS ABS # 0.17 K/uL (0-0.5); HEMATOCRIT 52.4 % (42-52); HEMOGLOBIN 17.4 g/dL (14.0-18.0); IG# 0.02 K/uL (0.00-0.02); LYMPH % 29.2 %; LYMPH ABS # 2.12 K/uL (1.2-3.4); MEAN CELL VOLUME 102.7 fL (80-100); MEAN CORPUSCULAR HEMOGLOBIN 34.1 pg (25-34); MEAN CORPUSCULAR HGB CONC 33.2 g/dl (32-36); MEAN PLATELET VOLUME 10.6 fL (7.4-10.4); MONO ABS # 0.87 K/uL (0.11-0.59); NEUT % 54.3 %; NEUT ABS # 3.94 K/uL (1.4-6.5); PLATELET COUNT 217 K/uL (130-400); RED CELL DISTRIBUTION WIDTH CV 14.7 % (11.5-14.5); WHITE BLOOD COUNT 7.26 K/uL (4.8-10.8)
[2017-12-23 17:17] LABS: ALBUMIN 3.7 gm/dl (3.4-5.0); ALKALINE PHOSPHATASE 119 U/L (45-117); ALT/SGPT 39 U/L (12-78); AST/SGOT 23 U/L (15-37); BLOOD UREA NITROGEN 8 mg/dl (7-18); CALCIUM 9.4 mg/dl (8.5-10.1); CARBON DIOXIDE 30 mmol/L (21-32); CHOLESTEROL 262 mg/dl (0-200); CREATININE 0.98 mg/dl (0.60-1.40); GLUCOSE 101 mg/dl (70-99); POTASSIUM 3.9 mmol/L (3.5-5.1); SODIUM 137 mmol/L (136-145); TOTAL PROTEIN 7.8 gm/dl (6.4-8.2)
[2017-12-23 17:20] LABS: LDL CHOLESTEROL CALCULATED 161 mg/dl
== END | disposition home or self-care (01) ==
LOC: C.LABPBG 14:57
PROVIDERS: ATTEND Physician Assistant
DX: R10.11 Right upper quadrant pain (principal)

== ENCOUNTER → 2018-01-07 | Outpatient (CLI) | payer OTHER ==
--- NOTE | 2018-01-07 10:36 | DIAGNOSTIC IMAGING REPORT ---
ABDOMINAL ULTRASOUND, RIGHT UPPER QUADRANT HISTORY: Right upper quadrant abdominal pain.. COMPARISON: None. FINDINGS: Pancreas: The pancreatic tail is obscured by overlying bowel gas. The remaining portions of the pancreas are within normal limits. Liver: The liver is echogenic consistent with fatty change. Gallbladder: No gallbladder wall thickening. No gallstones. A 5 mm nodule adherent to the wall of the gallbladder consistent with a polyp. Ring down artifact at the gallbladder fundus suggestive of a small focus of adenomyomatosis. CBD: 5 mm. Right kidney: No hydronephrosis. IMPRESSION: 1. Hepatic steatosis. 2. A 5 mm gallbladder polyp. 3. No gallstones. No gallbladder wall thickening. Electronically signed by: Navjot Christianson M.D. 01/07/2018 10:34 AM Dictated Date/Time: 01/07/2018 10:33 AM
== END | disposition home or self-care (01) ==
LOC: C.ULTR 09:42
PROVIDERS: ATTEND Physician Assistant
DX: R10.11 Right upper quadrant pain (principal); K76.0 Fatty (change of) liver, not elsewhere classified; K82.4 Cholesterolosis of gallbladder

== ENCOUNTER 2021-02-06 10:39 | Inpatient (IN) ==
[2021-02-06] MEDS ORDERED: SODIUM CHLORIDE 0.9% 1000ML 1,000 ML IV STA (10:52)
[2021-02-06 11:35] LABS: Basophils % (auto) 0.6 %; Eosinophils # (auto) 0.03 K/uL (0-0.5); Eosinophils % (auto) 0.2 %; Hematocrit (blood only) 44.8 % (42-52); Immature Granulocytes # (auto) 0.06 K/uL (0.00-0.02); Immature Granulocytes % (auto) 0.4 %; Lymphocytes # (auto) 2.24 K/uL (1.2-3.4); Lymphocytes % (auto) 13.3 %; Mean Corpuscular Hemoglobin 34.3 pg (25-34); Mean Corpuscular Hgb Conc 33.5 g/dL (32-36); Mean Corpuscular Volume 102.5 fL (80-100); Mean Platelet Volume 10.3 fL (7.4-10.4); Monocytes % (auto) 10.7 %; Neutrophils # (auto) 12.66 K/uL (1.4-6.5); Neutrophils % (auto) 74.8 %; Platelet Count 433 K/uL (130-400); RDW Coefficient of Variation 12.6 % (11.5-14.5); RDW Standard Deviation 47.5 fL (36.4-46.3); Red Blood Count 4.37 M/uL (4.7-6.1); White Blood Count 16.89 K/uL (4.8-10.8)
[2021-02-06] MEDS ORDERED: SODIUM CHLORIDE 0.9% 1000ML 1,000 ML IV ONE (11:38)
--- NOTE | 2021-02-06 11:42 | Emergency Department Note ---
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 The patient states that he does have a history of tobacco use as well as pulmonary nodules. He states that his primary care physician has been following his pulmonary condition but recently found that he had worsening of his pulmonary status. He had a CT of the chest which showed a very large mass likely consistent with a neoplastic process. He was sent to pulmonary today and was sent from the churn driller office to the emergency department because of his vital signs and need for work-up of this pulmonary mass. I did receive a phone call from the patient's churn driller prior to arrival. The patient states that he has had a right-sided headache. He notices generalized weakness. He is noticed no nausea or vomiting. He has had no lower extremity swelling. He has noticed cough but no hemoptysis. He is also noticed very significant dyspnea on exertion. He states his symptoms are moderate to severe. He notices no fever. He does have a history of tobacco as well as alcohol use but does not drink as much alcohol recently. ROS: See above HPI for pertinent positives & negatives. A total of 10 systems reviewed and were otherwise negative. PAST MEDICAL HISTORY: See Below PAST SURGICAL HISTORY: See Below FAMILY HISTORY: See Below SOCIAL HISTORY: See Below HOME MEDICATIONS: See Below ALLERGIES: See Below VITALS: See Below PHYSICAL EXAMINATION: GENERAL: The patient is awake and alert. The patient is somewhat anxious appearing. EYES: The conjunctivae are clear. The pupils are round and reactive. EARS, NOSE, MOUTH AND THROAT: The nose is without any evidence of any deformity. NECK: The neck is nontender and supple. RESPIRATORY: Severely diminished breath sounds are noted in the right lung fi eld. There was significant tachypnea as well as conversational dyspnea noted. CARDIOVASCULAR: Tachycardic rate with regular rhythm was noted. No definite murmur was appreciated. GASTROINTESTINAL: The abdomen is soft. Abdomen is nontender. MUSCULOSKELETAL/EXTREMITIES: There is no evidence of gross deformity full range of motion is noted in the hips and shoulders. SKIN: There is no obvious evidence of any rash. There are no petechiae, pallor or cyanosis noted. NEUROLOGIC: Patient is awake alert and oriented x3. MEDICAL DECISION MAKING: The patient is a 55-year-old male who presented to the emergency department for an evaluation of difficulty breathing and weakness. The patient has a history of tobacco use. He also had severe shortness of breath which was worsening. He was sent to a pulmonary doctor for evaluation after his CAT scan showed a very large pulmonary mass. Once he was at the churn driller office he was found to have very unstable vital signs and was sent to the emergency department for further evaluation. The patient was treated with supplemental oxygen and IV fluids. His calcium was very elevated which is likely a paraneoplastic finding. The patient was feeling much better on subsequent reevaluation. I discussed th e findings of the patient's CAT scan with him. I discussed his case with the on-call [facility] hospitalist. They will evaluate the patient in the emergency department for further management and disposition. I discussed the case with pulmonary again and it sounds though they would like to do a bronchoscopy with biopsy tomorrow at noon. Triage Nursing notes reviewed. Prior medical records reviewed Vital Signs: reviewed and remarkable for tachycardia hypoxia and intermittent hypotension. Differential diagnosis: Reactive airway disease, pneumonia, pneumothorax, COPD, CHF, infections, cardiac ischemia, pulmonary embolism, musculoskeletal, gastrointestinal, as well as other pathologies. ER treatment provided: See below Diagnostics interpreted by me: ECG: EKG was obtained in the emergency department. My interpretation is sinus tachycardia at 130 bpm. There is no ectopy. There was no acute ST segment abnormalities noted. This was compared to a tracing from March 202016. There was an increase in the ventricular rate. Cardiac Monitoring: An order was placed for continuous cardiac monitoring. The monitor shows a rate of 120 bpm with sinus tach rhythm. Laboratory studies: As stated above and show below. Imaging studies: See below Consultation(s): 1350: I discussed this case with Dr. Villavicencio who is on-call for the [facility]. They will evaluate the patient in the emergency department. Past Med/Surg History Medical History Abdominal pain, RUQ (right upper quadrant) ACS (acute coronary syndrome) June 2010 100 percent RCA occlusion underwent thrombectomy Acute costochondritis Acute respiratory infection Alcohol abuse Arterial occlusion, lower extremity (~01/2021) 100% LT SFA occlusion from ostium with flow reconstitution and prox Pop A Conjunctivitis Constipation Coronary artery vasospasm Depressive disorder, not elsewhere classified (01/15/13) Dyspnea on exertion Elevated ferritin Elevated random blood glucose level Esophageal reflux Fall Foot fracture Fracture of metatarsal bone Fracture of metatarsal bone Gallbladder polyp Hepatic steatosis Hyperlipidemia Hypertension Hypokalemia Infer AMI NEC, init episd (01/15/13) Lung consolidation Multiple rib fractures Osteopenia determined by x-ray Proteinuria Pulmonary mass (02/05/21) IMPRESSION: 1. Pathologic mediastinal hilar and right axillary lymphadenopathy. 2. Suspected central pulmonary mass with obstruction of the right upper lobe bronchus 3. Multiple bilateral pulmonary nodules. Metastatic disease is the diagnosis of exclusion. Recurrent epistaxis Thrombocytosis Tobacco use disorder (01/15/13) Surgical History H/O coronary angiogram Family History Family/Other Alcohol abuse Mother Depression Father Alcohol abuse Depression Denies family history of Ovarian cancer Prostate cancer Myocardial infarction Colorectal cancer Social History Smoking Status: Current every day smoker Tobacco Type: Cigarettes Age Started Using Tobacco: 14; packs per day: 2; Second Hand Exposure: Yes; Do You Dip or Chew Tobacco: No; Hx Alcohol Use: Yes Hx Substance Use: No Preferred Language: Sinhala Communication Ability: Effective Visual Impairment: No Limitations Hearing Ability: Normal Pants Cutter Required: No Beliefs That Will Affect Care: None marital status: Current Living Situation: Significant Other Current Living Situation Comment: lives with girlfriend current occupational status: unemployed Other Information That Helps Us Care for You: No Feels Safe at Home: Yes Safety Concerns: Feels Safe At This Time caffeine: Yes during the past year weight has: decreased > 10 lbs Dental Care, Regularly: No Physical Activity Frequency: Does not Exercise Seatbelt Use: never Sunscreen Use: No Assistive Devices: None Allergies Allergies Allergy/AdvReac Type Severity Reaction Status Date / Time No Known Drug Allergies Allergy Verified 02/06/21 14:02 Home Meds Home Medications Medication Instructions Recorded Confirmed [id number] 1 inh INHALATION QAM 02/06/21 02/06/21 [Trelegy Ellipta] vitamin B complex-folic acid [B 1 tab PO QAM 02/06/21 02/06/21 Complex 1 (with folic acid)] Previous Rx's Medication Instructions Recorded cholecalciferol (vitamin D3) 1,250 50,000 unit PO WEEKLY 42 Days #6 01/19/21 mcg (50,000 unit) capsule cap albuterol sulfate 90 mcg/actuation 2 puff INHALATION Q6H PRN #18 g 02/06/21 aerosol inhaler Results & Data (ED) Vital Signs Vital Signs - 24 hr 02/06/21 10:44 02/06/21 11:22 02/06/21 11:26 Temperature 36.1 C L Temperature Source Temporal Artery Scan Pulse Rate 142 H 129 H 128 H Pulse Rate [Apical] 129 H Pulse Rate from SpO2 Sensor 128 H Pulse Rhythm Regular Pulse Rhythm [Apical] Regular Pulse Strength [Apical] Normal Respiratory Rate 20 28 H 30 H Respiratory Effort / Characteristics Non-Labored Respiratory Depth Normal Blood Pressure 105/75 92/77 L Blood Pressure [Right Arm] 92/77 L Blood Pressure Mean 85 82 Blood Pressure Mean [Right Arm] 82 Blood Pressure Position [Right Arm] Lying Pulse Oximetry 92 89 L 90 Oxygen Delivery Method Room Air Sepsis Recent Fever Within 48 Hours No Sepsis New/Unexplained Change in Mental Status No Sepsis Action Taken by Nursing No Action Required 02/06/21 11:30 02/06/21 12:00 02/06/21 12:30 Temperature Temperature Source Pulse Rate 123 H 111 H 115 H Pulse Rate [Apical] Pulse Rate from SpO2 Sensor 124 H 111 H 115 H Pulse Rhythm Pulse Rhythm [Apical] Pulse Strength [Apical] Respiratory Rate 31 H 30 H 27 H Respiratory Effort / Characteristics Respiratory Depth Blood Pressure 107/72 107/79 101/71 Blood Pressure [Right Arm] Blood Pressure Mean 83 88 81 Blood Pressure Mean [Right Arm] Blood Pressure Position [Right Arm] Pulse Oximetry 91 92 90 Oxygen Delivery Method Sepsis Recent Fever Within 48 Hours Sepsis New/Unexplained Change in Mental Status Sepsis Action Taken by Nursing 02/06/21 13:19 02/06/21 13:30 02/06/21 14:00 Temperature Temperature Source Pulse Rate 116 H 111 H 105 H Pulse Rate [Apical] Pulse Rate from SpO2 Sensor 116 H 111 H 105 H Pulse Rhythm Pulse Rhythm [Apical] Pulse Strength [Apical] Respiratory Rate 26 H 26 H 24 Respiratory Effort / Characteristics Respiratory Depth Blood Pressure 119/73 115/75 111/73 Blood Pressure [Right Arm] Blood Pressure Mean 88 88 85 Blood Pressure Mean [Right Arm] Blood Pressure Position [Right Arm] Pulse Oximetry 91 92 90 Oxygen Delivery Method Sepsis Recent Fever Within 48 Hours Sepsis New/Unexplained Change in Mental Status Sepsis Action Taken by Longterm Medications Current Medication List: was personally reviewed by me Laboratory Data Attestation: I reviewed the patient's lab results. Result diagrams: 02/06/21 11:29 02/06/21 11:29 Lab Results 02/06/21 02/06/21 02/06/21 Range/Units 11:29 11:29 11:29 WBC 16.89 H (4.8-10.8) K/uL RBC 4.37 L (4.7-6.1) M/uL Hgb 15.0 (14.0-18.0) g/dL Hct 44.8 (42-52) % MCV 102.5 H (80-100) fL MCH 34.3 H (25-34) pg MCHC 33.5 (32-36) g/dL RDW Std Deviation 47.5 H (36.4-46.3) fL RDW Coeff of Apolonia 12.6 (11.5-14.5) % Plt Count 433 H (130-400) K/uL MPV 10.3 (7.4-10.4) fL Immature Gran % (Auto) 0.4 % Neut % (Auto) 74.8 % Lymph % (Auto) 13.3 % Sac % (Auto) 10.7 % Eos % (Auto) 0.2 % Baso % (Auto) 0.6 % Neut # (Auto) 12.66 H (1.4-6.5) K/uL Lymph # (Auto) 2.24 (1.2-3.4) K/uL Sac # (Auto) 1.80 H (0.11-0.59) K/uL Eos # (Auto) 0.03 (0-0.5) K/uL Baso # (Auto) 0.10 (0-0.2) K/uL Immature Gran # (Auto) 0.06 H (0.00-0.02) K/uL PT 11.5 (9.0-12.0) Seconds INR 1.1 (0.9-1.1) APTT 22.5 (21.0-31.0) Seconds PTT Ratio 0.9 Sodium 137 (136-145) mmol/L Potassium 4.1 (3.5-5.1) mmol/L Chloride 98 (98-107) mmol/L Carbon Dioxide 33 H (21-32) mmol/L Anion Gap 6.0 (3-11) BUN 19 H (7-18) mg/dl Creatinine 0.93 (0.6-1.4) mg/dl Est Cr Clr Drug Dosing 85.8 ml/min Est GFR ( Amer) 106.0 ml/min Est GFR (Non-Af Amer) 91.4 ml/min BUN/Creatinine Ratio 20.7 H (10-20) Glucose 137 H (70-99) mg/dl Calcium 14.1 H* (8.5-10.1) mg/dl Magnesium 2.3 (1.8-2.4) mg/dl Total Bilirubin 0.4 (0.2-1) mg/dl AST 23 (15-37) U/L ALT 17 (12-78) U/L Alkaline Phosphatase 128 H (45-117) U/L Troponin I < 0.015 (0-0.045) ng/ml Total Protein 7.4 (6.4-8.2) gm/dl Albumin 2.5 L (3.4-5.0) gm/dl Globulin 4.9 H (2.5-4.0) gm/dl Albumin/Globulin Ratio 0.5 L (0.9-2) Lipase 71 L (73-393) U/L COVID-19 Eval Order SARS-CoV-2 (PCR) (Negative) 02/06/21 02/06/21 Range/Units 11:35 11:35 WBC (4.8-10.8) K/uL RBC (4.7-6.1) M/uL Hgb (14.0-18.0) g/dL Hct (42-52) % MCV (80-100) fL MCH (25-34) pg MCHC (32-36) g/dL RDW Std Deviation (36.4-46.3) fL RDW Coeff of Apolonia (11.5-14.5) % Plt Count (130-400) K/uL MPV (7.4-10.4) fL Immature Gran % (Auto) % Neut % (Auto) % Lymph % (Auto) % Sac % (Auto) % Eos % (Auto) % Baso % (Auto) % Neut # (Auto) (1.4-6.5) K/uL Lymph # (Auto) (1.2-3.4) K/uL Sac # (Auto) (0.11-0.59) K/uL Eos # (Auto) (0-0.5) K/uL Baso # (Auto) (0-0.2) K/uL Immature Gran # (Auto) (0.00-0.02) K/uL PT (9.0-12.0) Seconds INR (0.9-1.1) APTT (21.0-31.0) Seconds PTT Ratio Sodium (136-145) mmol/L Potassium (3.5-5.1) mmol/L Chloride (98-107) mmol/L Carbon Dioxide (21-32) mmol/L Anion Gap (3-11) BUN (7-18) mg/dl Creatinine (0.6-1.4) mg/dl Est Cr Clr Drug Dosing ml/min Est GFR ( Amer) ml/min Est GFR (Non-Af Amer) ml/min BUN/Creatinine Ratio (10-20) Glucose (70-99) mg/dl Calcium (8.5-10.1) mg/dl Magnesium (1.8-2.4) mg/dl Total Bilirubin (0.2-1) mg/dl AST (15-37) U/L ALT (12-78) U/L Alkaline Phosphatase (45-117) U/L Troponin I (0-0.045) ng/ml Total Protein (6.4-8.2) gm/dl Albumin (3.4-5.0) gm/dl Globulin (2.5-4.0) gm/dl Albumin/Globulin Ratio (0.9-2) Lipase (73-393) U/L COVID-19 Eval Order Covid19 at [facility] SARS-CoV-2 (PCR) NEGATIVE (Negative) Administered Medications Folic Acid (Folic Acid 1 Mg Tab) 1 mg PO QAM GODWIN Stop: 03/08/21 08:59 Last Admin: 02/06/21 16:25 Dose: Not Given Documented by: [id number] Sodium Chloride (Nss 1000ml) 1,000 mls @ 125 mls/hr IV .Q8H GODWIN Stop: 03/08/21 15:28 Last Admin: 02/06/21 16:32 Dose: 125 mls/hr Documented by: [id number] Thiamine HCl (Thiamine Hcl 100 Mg Tab) 100 mg PO QAM GODWIN Stop: 03/08/21 08:59 Last Admin: 02/06/21 16:26 Dose: Not Given Documented by: [id number] Discontinued Medications Sodium Chloride (Nss 1000ml) 1,000 mls @ 999 mls/hr IV .Q1H1M STA Stop: 02/06/21 11:52 Last Infusion: 02/06/21 12:38 Dose: 0 mls/hr Documented by: [id number] Admin: 02/06/21 11:27 Dose: 999 mls/hr Documented by: [id number] Sodium Chloride (Nss 1000ml) 1,000 mls @ 999 mls/hr IV .Q1H1M ONE Stop: 02/06/21 12:38 Last Infusion: 02/06/21 14:08 Dose: 0 mls/hr Documented by: [id number] Admin: 02/06/21 13:16 Dose: 999 mls/hr Documented by: [id number] Ioversol (Optiray 350 500ml) 118 ml IV ONCE ONE Stop: 02/06/21 13:14 Last Admin: 02/06/21 13:13 Dose: 118 ml Documented by: [id number] Imaging Data Radiologist's Impression: Abdomen/Pelvis CT 02/06/21 10:52 CT OF THE ABDOMEN AND PELVIS WITH CONTRAST CLINICAL HISTORY: Lung cancer COMPARISON STUDY: Abdominal ultrasound February 05, 2021. TECHNIQUE: Following IV administration of 118 mL of Optiray, axial images of the abdomen and pelvis were obtained from the lung bases to the proximal femurs. Images were reviewed in the axial, sagittal, and coronal planes. IV contrast was administered without complication. Automated exposure control was utilized for the study. A dose lowering technique was utilized adhering to the principles of ALARA. FINDINGS: Please note that the chest CT will be reported separately. Multiple pulmonary nodules are better depicted on that exam. There is an indeterminate 1.7 cm lateral segment hepatic lesion on image 82 of 456. This deforms the capsule. There is no biliary or pancreatic ductal dilatation. A 1.6 cm right adrenal nodule is similar to prior chest CT of August 29, 2015. Mildly enlarged periceliac node measures 1.2 cm. This has increased in size since prior chest CT. A few subcentimeter renal lesions favor cysts. There is no hydronephrosis. The caliber and wall thickness of small and large bowel are normal. Colonic diverticulosis without evidence for acute diverticulitis. There is no evidence for a bowel obstruction. Major vasculature is patent. Numerous lytic skeletal lesions are noted. These include lesions within the S1 and S2 vertebral bodies. Right iliac bone lytic lesion is noted. There are smaller left iliac bone lesions Multilevel degenerative changes within lumbar spine are present. IMPRESSION: 1. Numerous lytic skeletal metastases, including S1 and S2 vertebral body lesions without evidence for epidural extension at these levels. 2. Indeterminate 1.7 cm lateral segment hepatic lesion. This may reflect a metastasis. 3. Mildly enlarged periceliac lymph node. ACT 112: Negative or not required by law. Electronically signed by: Elgin Herr M.D. 02/06/2021 1:47 PM Chest CTA 02/06/21 10:53 CT ANGIOGRAM OF THE CHEST CLINICAL HISTORY: Atypical chest pain. Possible pulmonary embolism. History of lung carcinoma. COMPARISON STUDY: 02/05/2021 TECHNIQUE: Following the IV administration of 118 mL of Optiray, CT angiogram of the thorax was performed from the thoracic inlet to the lung bases utilizing the pulmonary embolus protocol. Images are reviewed in the axial, sagittal, and coronal planes. IV contrast was administered without complication. MIP imaging was performed. A dose lowering technique was utilized adhering to the principles of ALARA. CT DOSE: 2090.68 mGy.cm FINDINGS: There are enlarged right supraclavicular lymph nodes, mediastinal lymph nodes, hilar lymph nodes, as well as an enlarged right axillary lymph node. There was no evidence of thoracic aortic dilatation. There were no pulmonary artery filling defects to indicate acute pulmonary embolism. Examination is compromised due to respiratory motion artifact. No pleural effusions are visualized. There are pleural calcifications present. Evaluation the lung parenchyma is limited due to respiratory motion artifact. There are multiple bilateral pulmonary nodules suspicious for metastatic disease. There is obstruction of the right upper lobe bronchus with secondary dense consolidation of the right upper lobe. A centrally obstructing mass is suspected. It is difficult to accurately differentiate the mass from the surrounded consolidated lung. Airspace opacities are also present within the right middle lobe. There are multiple lytic skeletal foci, consistent with skeletal metastasis. The most significant of which involves the right T3 pedicle and transverse process with right-sided epidural spread with mild secondary spinal canal narrowing. IMPRESSION: 1. No evidence of acute pulmonary embolism given the technical limitations of motion compromised study 2. Pathologic axillary mediastinal and hilar lymphadenopathy 3. Multiple bilateral pulmonary nodules viewed as highly suspicious for metastatic disease 4. Trace right pleural effusion and pleural calcifications 5. Obstruction of the right upper lobe bronchus secondary to a suspected centrally obstructing mass. Accurate determination of the size of the right upper lobe mass is difficult as it is difficult to differentiate with certainty the mass from the secondary consolidated lung 6. Multifocal lytic skeletal metastasis. The most significant lesion involves the right T3 pedicle and transverse process with right-sided epidural spread ACT 112: Negative or not required by law. Electronically signed by: Jose Martin Ho M.D. 02/06/2021 1:[address] 02/06/21 11:10 CT SCAN OF THE BRAIN COMBO CLINICAL HISTORY: Headache. Lung mass. COMPARISON STUDY: No priors. TECHNIQUE: Axial CT scan of the brain is performed from the vertex to the skull base before and following the IV administration of 118 cc of Optiray 350. IV contrast was administered without complication. A dose lowering technique was utilized adhering to the principles of ALARA. CT DOSE: 537.48 mGy.cm FINDINGS: Brain parenchyma: There is mild microangiopathic change. There is no hemorrhage, mass effect, or evidence of acute territorial ischemia by CT criteria. Moralez- white matter differentiation is preserved. There is no evidence of enhancing lesion on the postcontrast series. No extra-axial fluid collection is seen. Mineralization is noted in the basal ganglia. Ventricles, sulci, cisterns: Normal in configuration. Intracranial vasculature: There is atherosclerotic calcification of the cavernous carotid arteries. Calvarium: An 8 mm ovoid lucency in the right orbital roof on image #12 is nonspecific and may represent a lytic lesion. The calvarium is otherwise intact. Sinuses and mastoids: The paranasal sinuses are clear. The mastoid air cells are well pneumatized. Orbits: The bony orbits are grossly intact. IMPRESSION: 1. There is no hemorrhage, enhancing mass, or evidence of acute territorial ischemia by CT criteria. 2. An 8 mm ovoid lucency within the right orbital roof is nonspecific. A lytic lesion is not excluded. ACT 112: Negative or not required by law. Electronically signed by: Mayito Niño M.D. 02/06/2021 1:30 PM Discharge Plan Visit Data Chief Complaint: Abnormal Labs/Diagnostic Testing Stated Complaint: CHEST MASS,SENT PER ED Provider: Mark Booker Discharge Problem: Pulmonary mass, Hypercalcemia, Hypoxia Patient Disposition: Admitted As Inpatient Condition: Good Discharge Instructions Interventions: ED Discharge Assessment Last Done: 02/06/21 15:06
[2021-02-06 11:54] LABS: INR 1.1 (0.9-1.1); Partial Thromboplastin Ratio 0.9; Partial Thromboplastin Time 22.5 Seconds (21.0-31.0); Prothrombin Time 11.5 Seconds (9.0-12.0)
[2021-02-06 12:11] LABS: Alanine Aminotransferase 17 U/L (12-78); Albumin Globulin Ratio 0.5 (0.9-2); Albumin Level 2.5 gm/dl (3.4-5.0); Alkaline Phosphatase 128 U/L (45-117); Aspartate Aminotransferase 23 U/L (15-37); BUN Creatinine Ratio 20.7 (10-20); Bilirubin,Total 0.4 mg/dl (0.2-1); Blood Urea Nitrogen 19 mg/dl (7-18); Calcium 14.1 mg/dl (8.5-10.1); Carbon Dioxide 33 mmol/L (21-32); Chloride 98 mmol/L (98-107); Creatinine Clr Calc Pharmacy 85.8 ml/min; Est GFR (Non-African American) 91.4 ml/min; Globulin 4.9 gm/dl (2.5-4.0); Glucose 137 mg/dl (70-99); Lipase 71 U/L (73-393); Magnesium 2.3 mg/dl (1.8-2.4); Potassium 4.1 mmol/L (3.5-5.1); Sodium 137 mmol/L (136-145); Total Protein 7.4 gm/dl (6.4-8.2); Troponin I < 0.015 ng/ml (0-0.045)
[2021-02-06] MEDS ORDERED: OPTIRAY 350 500ml IV ONE (13:13)
--- NOTE | 2021-02-06 13:31 | CT Scan Report ---
CT SCAN OF THE BRAIN COMBO CLINICAL HISTORY: Headache. Lung mass. COMPARISON STUDY: No priors. TECHNIQUE: Axial CT scan of the brain is performed from the vertex to the skull base before and follo wing the IV administration of 118 cc of Optiray 350. IV contrast was administered without complicatio n. A dose lowering technique was utilized adhering to the principles of ALARA. CT DOSE: 537.48 mGy.cm FINDINGS: Brain parenchyma: There is mild microangiopathic change. There is no hemorrhage, mass effect, or evid ence of acute territorial ischemia by CT criteria. Moralez-white matter differentiation is preserved. Th ere is no evidence of enhancing lesion on the postcontrast series. No extra-axial fluid collection is seen. Mineralization is noted in the basal ganglia. Ventricles, sulci, cisterns: Normal in configuration. Intracranial vasculature: There is atherosclerotic calcification of the cavernous carotid arteries. Calvarium: An 8 mm ovoid lucency in the right orbital roof on image #12 is nonspecific and may repres ent a lytic lesion. The calvarium is otherwise intact. Sinuses and mastoids: The paranasal sinuses are clear. The mastoid air cells are well pneumatized. Orbits: The bony orbits are grossly intact. IMPRESSION: 1. There is no hemorrhage, enhancing mass, or evidence of acute territorial ischemia by CT criteria. 2. An 8 mm ovoid lucency within the right orbital roof is nonspecific. A lytic lesion is not excluded . ACT 112: Negative or not required by law. Electronically signed by: Mayito Niño M.D. 02/06/2021 1:30 PM
--- NOTE | 2021-02-06 13:38 | CT Scan Report ---
CT ANGIOGRAM OF THE CHEST CLINICAL HISTORY: Atypical chest pain. Possible pulmonary embolism. History of lung carcinoma. COMPARISON STUDY: 02/05/2021 TECHNIQUE: Following the IV administration of 118 mL of Optiray, CT angiogram of the thorax was perfo rmed from the thoracic inlet to the lung bases utilizing the pulmonary embolus protocol. Images are r eviewed in the axial, sagittal, and coronal planes. IV contrast was administered without complication . MIP imaging was performed. A dose lowering technique was utilized adhering to the principles of AL VENKATESH. CT DOSE: 2090.68 mGy.cm FINDINGS: There are enlarged right supraclavicular lymph nodes, mediastinal lymph nodes, hilar lymph nodes, as well as an enlarged right axillary lymph node. There was no evidence of thoracic aortic dilatation. There were no pulmonary artery filling defects to indicate acute pulmonary embolism. Examination is c ompromised due to respiratory motion artifact. No pleural effusions are visualized. There are pleural calcifications present. Evaluation the lung parenchyma is limited due to respiratory motion artifact. There are multiple bila teral pulmonary nodules suspicious for metastatic disease. There is obstruction of the right upper lo be bronchus with secondary dense consolidation of the right upper lobe. A centrally obstructing mass is suspected. It is difficult to accurately differentiate the mass from the surrounded consolidated l bridger. Airspace opacities are also present within the right middle lobe. There are multiple lytic skeletal foci, consistent with skeletal metastasis. The most significant of which involves the right T3 pedicle and transverse process with right-sided epidural spread with mild secondary spinal canal narrowing. IMPRESSION: 1. No evidence of acute pulmonary embolism given the technical limitations of motion compromised stud y 2. Pathologic axillary mediastinal and hilar lymphadenopathy 3. Multiple bilateral pulmonary nodules viewed as highly suspicious for metastatic disease 4. Trace right pleural effusion and pleural calcifications 5. Obstruction of the right upper lobe bronchus secondary to a suspected centrally obstructing mass. Accurate determination of the size of the right upper lobe mass is difficult as it is difficult to di fferentiate with certainty the mass from the secondary consolidated lung 6. Multifocal lytic skeletal metastasis. The most significant lesion involves the right T3 pedicle an d transverse process with right-sided epidural spread ACT 112: Negative or not required by law. Electronically signed by: Jose Martin Ho M.D. 02/06/2021 1:37 PM
--- NOTE | 2021-02-06 13:49 | CT Scan Report ---
CT OF THE ABDOMEN AND PELVIS WITH CONTRAST CLINICAL HISTORY: Lung cancer COMPARISON STUDY: Abdominal ultrasound February 05, 2021. TECHNIQUE: Following IV administration of 118 mL of Optiray, axial images of the abdomen and pelvis w ere obtained from the lung bases to the proximal femurs. Images were reviewed in the axial, sagittal, and coronal planes. IV contrast was administered without complication. Automated exposure control w as utilized for the study. A dose lowering technique was utilized adhering to the principles of ZAYRA Childers. FINDINGS: Please note that the chest CT will be reported separately. Multiple pulmonary nodules are b garland depicted on that exam. There is an indeterminate 1.7 cm lateral segment hepatic lesion on image 82 of 456. This deforms the capsule. There is no biliary or pancreatic ductal dilatation. A 1.6 cm r ight adrenal nodule is similar to prior chest CT of August 29, 2015. Mildly enlarged periceliac nod e measures 1.2 cm. This has increased in size since prior chest CT. A few subcentimeter renal lesions favor cysts. There is no hydronephrosis. The caliber and wall thickness of small and large bowel are normal. Colonic diverticulosis without evidence for acute diverticulitis. There is no evidence for a bowel obstruction. Major vasculature is patent. Numerous lytic skeletal lesions are noted. These inc lude lesions within the S1 and S2 vertebral bodies. Right iliac bone lytic lesion is noted. There are smaller left iliac bone lesions Multilevel degenerative changes within lumbar spine are present. IMPRESSION: 1. Numerous lytic skeletal metastases, including S1 and S2 vertebral body lesions without evidence fo r epidural extension at these levels. 2. Indeterminate 1.7 cm lateral segment hepatic lesion. This may reflect a metastasis. 3. Mildly enlarged periceliac lymph node. ACT 112: Negative or not required by law. Electronically signed by: Elgin Herr M.D. 02/06/2021 1:47 PM
--- NOTE | 2021-02-06 14:22 | Electrocardiogram Report ---
Test Reason : Blood Pressure : / mmHG Vent. Rate : 130 BPM Atrial Rate : 130 BPM P-R Int : 152 ms QRS Dur : 072 ms QT Int : 278 ms P-R-T Axes : 061 092 061 degrees QTc Int : 409 ms Poor data quality, interpretation may be adversely affected Sinus tachycardia Possible Left atrial enlargement Rightward axis Borderline ECG When compared with ECG of 20-MAR-2017 06:13, Vent. rate has increased BY 49 BPM Confirmed by Mark Knox ([id number]) on 02/06/2021 2:22:25 PM Referred By: REFERRED SELF Confirmed By:Mark Knox
--- NOTE | 2021-02-06 14:26 | History & Physical Report ---
Date of Service February 06, 2021 Assessment & Plan (1) Pulmonary mass: Patient appears to have a bronchogenic carcinoma on imaging, obstructive collapse of right upper lobe Also evidence of local lung metastasis as well as bony and epidural metastasis Patient will be admitted to a monitored bed Okay for nasal cannula O2 to sat 92% Consults pulmonology, documented plan for EBUS on 02/07, will make n.p.o. after midnight (2) Hypercalcemia: Corrects to 15.3 with albumin of 2.5 Likely paraneoplastic, may be degree of dehydration Patient is being hydrated with normal saline If available, will give a dose of IV Zometa Check PTH, PTHrP, iCa Recheck and treat further as needed (3) Hypoxia: Likely combination of advanced COPD, right upper lobe mass with collapse right upper lobe, hypercalcemia Continue treatment as noted above (4) Hyperlipidemia: , Patient is on no medication. Will check fasting lipid panel (5) Hypertension: Current blood pressure is 119/73, patient is on no medications We will continue to monitor off meds for now History of Present Illness Chief Complaint: weakness Primary Care Provider: OZZIE Fletcher This is a 55-year-old male with past medical history of reflux, hyperlipidemia, hypertension, 120-year pack smoking history that presents today from the [facility] office with a chief complaint of weakness. Patient is an decent istorian. Patient tells me that he started having significant generalized weakness along with shortness of breath. Had difficulty with any sort of ambulation. Patient was seen on 01/17 at his primary care physician, work-up was ordered but was essentially unrevealing outside of some mild desaturation with ambulation. He was also found to have a calcium of 10.4 but no real etiology was found. Max olmstead was giving albuterol and Trelebonnie did assumption that he had a worsening COPD. Patient later admitted that he did not take these medications as he was afraid of the side effects. He was ultimately referred to his [facility] administrator for further work-up. Patient saw Dr. Hernandez earlier today. It was a patient was found to have had significant weight loss along with worsening shortness of breath. CT scan was performed which showed a large central pulmonary was with obstruction of the right upper bronchus along with multiple pulmonary nodules felt to be possible metastasis. Patient was subsequently sent to the hospital for further evaluation. Repeat CT angiogram was performed, patient does not have any PE but he was noted to have lung mass as noted. There was also suggestion of possible multifocal lytic skeletal metastasis, most significant in the right pedicle and transverse process of T3. CT the head is negative for metastasis, but CT the end of pelvis shows multiple lytic lesions, most notably in the sacrum. Patient serum calcium and worsen to 14.1. Patient is now being admitted for further work-up. EBUS was scheduled by Dr. Hernandez for 12 PM tomorrow. Patient himself is very weak. He has difficulty even with sitting up. He denies any shortness of breath at rest but even the slightest amount of activity will make him dyspneic. He is denying any pain. He does have a dry cough, denies hemoptysis. Other issues such as abdominal pain, chest pain, fever or chills were negative. He tells me he did not note the weight loss but was found to be approximately 30 pounds down on evaluation today. Allergies Allergy/AdvReac Type Severity Reaction Status Date / Time No Known Drug Allergies Allergy Verified 02/06/21 14:02 Home Medications Medication Instructions Recorded Confirmed Type cholecalciferol (vitamin D3) 1,250 50,000 unit PO WEEKLY 42 Days #6 01/19/21 02/06/21 Rx mcg (50,000 unit) capsule cap albuterol sulfate 90 mcg/actuation 2 puff INHALATION Q6H PRN #18 g 02/06/21 02/06/21 Rx aerosol inhaler [id number]-[id number] 1 inh INHALATION QAM 02/06/21 02/06/21 History [Trelegy Ellipta] vitamin B complex-folic acid [B 1 tab PO QAM 02/06/21 02/06/21 History Complex 1 (with folic acid)] Past Med/Surg History Medical History Abdominal pain, RUQ (right upper quadrant) ACS (acute coronary syndrome) June 2010 100 percent RCA occlusion underwent thrombectomy Acute costochondritis Acute respiratory infection Alcohol abuse Arterial occlusion, lower extremity (~01/2021) 100% LT SFA occlusion from ostium with flow reconstitution and prox Pop A Conjunctivitis Constipation Coronary artery vasospasm Depressive disorder, not elsewhere classified (01/15/13) Dyspnea on exertion Elevated ferritin Elevated random blood glucose level Esophageal reflux Fall Foot fracture Fracture of metatarsal bone Fracture of metatarsal bone Gallbladder polyp Hepatic steatosis Hyperlipidemia Hypertension Hypokalemia Infer AMI NEC, init episd (01/15/13) Lung consolidation Multiple rib fractures Osteopenia determined by x-ray Proteinuria Pulmonary mass (02/05/21) IMPRESSION: 1. Pathologic mediastinal hilar and right axillary lymphadenopathy. 2. Suspected central pulmonary mass with obstruction of the right upper lobe bronchus 3. Multiple bilateral pulmonary nodules. Metastatic disease is the diagnosis of exclusion. Recurrent epistaxis Thrombocytosis Tobacco use disorder (01/15/13) Surgical History H/O coronary angiogram Family History Family/Other Alcohol abuse Mother Depression Father Alcohol abuse Depression Denies family history of Ovarian cancer Prostate cancer Myocardial infarction Colorectal cancer Social History Smoking Status: Current every day smoker Tobacco Type: Cigarettes Age Started Using Tobacco: 14; packs per day: 2; Second Hand Exposure: Yes; Hx Alcohol Use: Yes Hx Substance Use: No Preferred Language: Bolivian Communication Ability: Effective Visual Impairment: No Limitations Hearing Ability: Normal 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 Beliefs That Will Affect Care: None marital status: Current Living Situation Comment: lives with girlfriend current occupational status: unemployed Feels Safe at Home: Yes caffeine: Yes during the past year weight has: decreased > 10 lbs Dental Care, Regularly: No Physical Activity Frequency: Does not Exercise Seatbelt Use: never Sunscreen Use: No Review of Systems Constitutional: + fatigue, + weakness and + weight loss; no fever and no chills Respiratory: + cough, + dyspnea on exertion and + wheezing; no hemoptysis and no sputum production Cardiovascular: + dyspnea on exertion; no chest pain, no chest pain at rest, no radiating jaw, neck or arm pain, no dyspnea, no orthopnea, no palpitations, no lightheadedness and no edema Gastrointestinal: no abdominal pain, no nausea, no vomiting, no constipation and no diarrhea/loose stools Genitourinary: no dysuria, no difficulty urinating, no urinary frequency and no urinary hesitancy Integumentary: no rash and no lesions Neurologic: + generalized weakness and + tremor(s); no localized weakness, no radiating pain and no restless legs Psychiatric: as per Subjective / HPI Endocrine: as per Subjective / HPI Physical Exam Constitutional: + ill appearing and cooperative; no acute distress Neck: trachea midline, no thyromegaly Respiratory: + labored breathing Auscultation: + breath sounds absent (very faint, RUL), + diminished lung sounds and + crackles (bases) Cardiovascular: Rate/Rhythm: regular rate and regular rhythm Vessels: no JVD and no carotid bruit Extremities: no edema Gastrointestinal (Abdomen): normal bowel sounds, soft, nontender, no hepatosplenomegaly Musculoskeletal: Extremities: + clubbing Skin: no rashes, warm and dry Neurologic: PERRL, EOMI, accommodation nl, no face palsy, no dysarthria awake Psychiatric: A+Ox3, euthymic affect Results & Data Results & Data ([facility]) Vital Signs (Past 12 Hours) Vital Signs Temp Pulse Pulse Resp BP BP Pulse Ox 02/06/21 13:19 116 H 26 H 119/73 91 02/06/21 12:30 115 H 27 H 101/71 90 02/06/21 12:00 111 H 30 H 107/79 92 02/06/21 11:30 123 H 31 H 107/72 91 02/06/21 11:26 128 H 30 H 92/77 L 90 02/06/21 11:22 129 H 129 H 28 H 92/77 L 89 L 02/06/21 10:44 36.1 C L 142 H 20 105/[address] ANGIOGRAM OF THE CHEST CLINICAL HISTORY: Atypical chest pain. Possible pulmonary embolism. History of lung carcinoma. COMPARISON STUDY: 02/05/2021 TECHNIQUE: Following the IV administration of 118 mL of Optiray, CT angiogram of the thorax was performed from the thoracic inlet to the lung bases utilizing the pulmonary embolus protocol. Images are reviewed in the axial, sagittal, and coronal planes. IV contrast was administered without complication. MIP imaging was performed. A dose lowering technique was utilized adhering to the principles of ALARA. CT DOSE: 2090.68 mGy.cm FINDINGS: There are enlarged right supraclavicular lymph nodes, mediastinal lymph nodes, hilar lymph nodes, as well as an enlarged right axillary lymph node. There was no evidence of thoracic aortic dilatation. There were no pulmonary artery filling defects to indicate acute pulmonary embolism. Examination is compromised due to respiratory motion artifact. No pleural effusions are visualized. There are pleural calcifications present. Evaluation the lung parenchyma is limited due to respiratory motion artifact. There are multiple bilateral pulmonary nodules suspicious for metastatic disease. There is obstruction of the right upper lobe bronchus with secondary dense consolidation of the right upper lobe. A centrally obstructing mass is suspected. It is difficult to accurately differentiate the mass from the surrounded consolidated lung. Airspace opacities are also present within the right middle lobe. There are multiple lytic skeletal foci, consistent with skeletal metastasis. The most significant of which involves the right T3 pedicle and transverse process with right-sided epidural spread with mild secondary spinal canal narrowing. IMPRESSION: 1. No evidence of acute pulmonary embolism given the technical limitations of motion compromised study 2. Pathologic axillary mediastinal and hilar lymphadenopathy 3. Multiple bilateral pulmonary nodules viewed as highly suspicious for metastatic disease 4. Trace right pleural effusion and pleural calcifications 5. Obstruction of the right upper lobe bronchus secondary to a suspected centrally obstructing mass. Accurate determination of the size of the right upper lobe mass is difficult as it is difficult to differentiate with certainty the mass from the secondary consolidated lung 6. Multifocal lytic skeletal metastasis. The most significant lesion involves the right T3 pedicle and transverse process with right-sided epidural spread CT OF THE ABDOMEN AND PELVIS WITH CONTRAST CLINICAL HISTORY: Lung cancer COMPARISON STUDY: Abdominal ultrasound February 05, 2021. TECHNIQUE: Following IV administration of 118 mL of Optiray, axial images of the abdomen and pelvis were obtained from the lung bases to the proximal femurs. Images were reviewed in the axial, sagittal, and coronal planes. IV contrast was administered without complication. Automated exposure control was utilized for the study. A dose lowering technique was utilized adhering to the principles of ALARA. FINDINGS: Please note that the chest CT will be reported separately. Multiple pulmonary nodules are better depicted on that exam. There is an indeterminate 1.7 cm lateral segment hepatic lesion on image 82 of 456. This deforms the capsule. There is no biliary or pancreatic ductal dilatation. A 1.6 cm right adrenal nodule is similar to prior chest CT of August 29, 2015. Mildly enlar ged periceliac node measures 1.2 cm. This has increased in size since prior chest CT. A few subcentimeter renal lesions favor cysts. There is no hydronephrosis. The caliber and wall thickness of small and large bowel are normal. Colonic diverticulosis without evidence for acute diverticulitis. There is no evidence for a bowel obstruction. Major vasculature is patent. Numerous lytic skeletal lesions are noted. These include lesions within the S1 and S2 vertebral bodies. Right iliac bone lytic lesion is noted. There are smaller left iliac bone lesions Multilevel degenerative changes within lumbar spine are present. IMPRESSION: 1. Numerous lytic skeletal metastases, including S1 and S2 vertebral body lesions without evidence for epidural extension at these levels. 2. Indeterminate 1.7 cm lateral segment hepatic lesion. This may reflect a metastasis. 3. Mildly enlarged periceliac lymph node. PG Care Time/CCT Total # of Minutes Spent Total Time Spent with Patient: Total time spent is greater than 50% in coordination of care (as documented) at patient's floor/unit and/or counseling patient: Coding Level of Care Code 38854 Initial Inpt Care Lvl 3 Diagnoses Pulmonary mass R91.8 Hypercalcemia E83.52 Hypoxia R09.02 Hyperlipidemia E78.5 Hypertension I10 Hypertension type: essential hypertension (1) Hypertension Hypertension type: essential hypertension Qualified Code(s): I10 - Essential (primary) hypertension
[2021-02-06] MEDS ORDERED: ACETAMINOPHEN 325 MG TAB PO PRN (15:29)
[2021-02-06] MEDS ORDERED: ONDANSETRON INJ 2 MG/ML 2 ML VIAL IV PRN (15:29)
[2021-02-06] MEDS ORDERED: LORazepam 1 MG/2 ML VIAL IV PRN (15:54)
[2021-02-06] MEDS ORDERED: LORazepam 2 MG/4 ML VIAL IV PRN (15:54)
[2021-02-06] MEDS ORDERED: LORazepam 3 MG/6 ML VIAL IV PRN (15:54)
[2021-02-06] MEDS ORDERED: ATIVAN IV ALCOHOL WITHDRAWL IV PRN (15:54)
[2021-02-06] MEDS: FOLIC ACID 1 MG TAB PO SCH ×2 (16:25→17:12)
[2021-02-06] MEDS: THIAMINE HCL 100 MG TAB PO SCH ×2 (16:26→17:12)
[2021-02-06] MEDS: SODIUM CHLORIDE 0.9% 1000ML 1,000 ML IV SCH ×2 (16:32→23:39)
[2021-02-06] MEDS: ALBUT/IPRATROP 3MG/0.5MG NEB 3 ML VIAL NEB SCH ×2 (17:31→18:57)
[2021-02-06] MEDS ORDERED: ZOLEDRONIC ACID 5 MG/100 ML IV ONE (18:30)
[2021-02-06] MEDS ORDERED: MoRPHine SULFATE 2 MG/ML CARP IV PRN ×2 (19:58)
[2021-02-06] MEDS ORDERED: ACETAMINOPHEN 500 MG TAB PO PRN (20:00)
[2021-02-07] MEDS: SODIUM CHLORIDE 0.9% 1000ML 1,000 ML IV SCH ×2 (06:01→18:02)
[2021-02-07 07:01] LABS: Basophils # (auto) 0.07 K/uL (0-0.2); Basophils % (auto) 0.5 %; Eosinophils # (auto) 0.11 K/uL (0-0.5); Eosinophils % (auto) 0.9 %; Hematocrit (blood only) 40.6 % (42-52); Hemoglobin 13.2 g/dL (14.0-18.0); Immature Granulocytes # (auto) 0.07 K/uL (0.00-0.02); Immature Granulocytes % (auto) 0.5 %; Lymphocytes # (auto) 0.89 K/uL (1.2-3.4); Lymphocytes % (auto) 6.9 %; Mean Corpuscular Hemoglobin 33.8 pg (25-34); Mean Corpuscular Hgb Conc 32.5 g/dL (32-36); Mean Corpuscular Volume 103.8 fL (80-100); Mean Platelet Volume 11.1 fL (7.4-10.4); Monocytes # (auto) 0.66 K/uL (0.11-0.59); Monocytes % (auto) 5.1 %; Neutrophils # (auto) 11.02 K/uL (1.4-6.5); Neutrophils % (auto) 86.1 %; Platelet Count 338 K/uL (130-400); RDW Coefficient of Variation 12.8 % (11.5-14.5); RDW Standard Deviation 48.4 fL (36.4-46.3); Red Blood Count 3.91 M/uL (4.7-6.1); White Blood Count 12.82 K/uL (4.8-10.8)
[2021-02-07] MEDS: ALBUT/IPRATROP 3MG/0.5MG NEB 3 ML VIAL NEB SCH ×4 (07:23→19:32)
[2021-02-07 07:32] LABS: Albumin Globulin Ratio 0.5 (0.9-2); BUN Creatinine Ratio 18.9 (10-20); Bilirubin,Total 0.3 mg/dl (0.2-1); Calcium 11.6 mg/dl (8.5-10.1); Creatinine Clr Calc Pharmacy 120.9 ml/min; Est GFR (African American) 125.3 ml/min; Est GFR (Non-African American) 108.1 ml/min; Globulin 4.4 gm/dl (2.5-4.0); Magnesium 1.6 mg/dl (1.8-2.4); Potassium 3.7 mmol/L (3.5-5.1); Total Protein 6.4 gm/dl (6.4-8.2)
[2021-02-07] MEDS: MAGNESIUM SULFATE / D5W 1 GM/100 ML BAG IV SCH ×2 (08:49→10:53)
--- NOTE | 2021-02-07 10:13 | Medical Student Progress Note ---
Date of Service February 07, 2021 Assessment & Plan (1) Pulmonary mass: Mr Knutson is a 55 yo male with a pmh COPD, HTN, HLD, CAD, 120 pack year smoking hx. Presented with weakness and significant weight loss over the past few weeks. He has developed increasing SOB and weakness. He has a dry cough but no sputum or blood. On CT, a large central mass was discovered in addition to multiple other nodules. CTA negative for acute PE, confirms mass on chest CT. A/P CT reveals several bone lytic lesions likely related to mets disease. Squamous cell carcinoma is highly likely given hx of smoking, squamous cell carcinoma. Plan -keep NPO as we await EBUS procedure -await path results and pulm workup for cancer treatment -hyperCa likely due to paraneoplastic syndrome associated with squamous lung cancer, see below (2) Hypercalcemia: Likely due to neoplastic syndrome associated with lung mass. Ca 11.2 today down from 14 with a IV fluids -Continue IV fluids -continue to monitor -Bisphosphonate would help with fpc management -Tylenol for pain management as need (3) Hypoxia: Likely due to COPD and right bronch obstruction due to mass. Currently O2 97% on 2 L NC. Hrad to rule out COPD exacerbation but less likely with clinical picture and mass obstruction. No change in sputum, onset of sxs gradual and subacute rather than sudden acute , no known triggers. No need for IV steriods or Abx coverage. -continue 2 L NC (4) Hypertension: chronic. normal readings during hospital stay continue to hold home medication Hypertension type: essential hypertension Qualified Code(s): I10 - Essential (primary) hypertension Admission and Anticipated Discharge Date Admission Date: February 06, 2021 Supervising Attestation I personally examined the patient and verified all guan points of history and exam, discussed case, and agree with decision making with Yvonne HERNANDEZ sleeping at the time i see him. d/w pulm - DTs - had to be moved to ICU, later intubated vitals noted in bed no respiratory distress no focal neuro deficits. otherwise as above lung mass - almost certainly malignant. for EBUS, MRI brain. EtOH withdrawal - ICU care otherwise as above Subjective Mr Knutson is still in pain today. He complains of back pain in addition to SOB. He pas a persistent chris cough, no sputum. No nausea, vomiting, hemoptysis. He denies chest pain at rest, headaches, lightheadedness. Currently NPO and awaiting EBUS. Review of Systems Constitutional: + weakness and + weight loss; no fever, no chills and no sweats Respiratory: + cough, + dyspnea and + dyspnea on exertion; no change in sputum Cardiovascular: + chest pain (with coughing ) and + dyspnea at rest Gastrointestinal: no abdominal pain, no nausea and no vomiting Physical Exam Constitutional: + acute distress and + ill appearing Respiratory: Auscultation: lungs clear to auscultation bilaterally and + diminished lung sounds (right lung ); no crackles, no rales and no rhonchi Cardiovascular: Heart Sounds: normal S1 and normal S2; no click, no gallop, no murmur and no cardiac rub Extremities: no pedal edema Gastrointestinal (Abdomen): Inspection/Auscultation: abdomen normal to inspection and normal bowel sounds; abdomen not distended Percussion/Palpation: abdomen soft; abdomen nontender, no guarding and abdomen not rigid Results & Data ([facility]) Vital Signs (Past 12 Hours) Vital Signs Temp Pulse Resp BP BP Pulse Ox 02/07/21 07:23 115 H 18 97 02/07/21 06:56 36.7 C 117 H 18 123/68 96 02/07/21 03:23 37.7 C H 104 H 20 107/71 95 02/06/21 22:46 36.7 C 92 H 18 104/67 94
[2021-02-07] MEDS ORDERED: MIDAZOLAM HCL 5 MG/ML 1 ML VIAL ONE (11:45)
[2021-02-07] MEDS ORDERED: fentaNYL citrate 100 MCG/2 ML VIAL ONE (11:46)
--- NOTE | 2021-02-07 11:48 | Pulmonary Consultation ---
Date of Consultation February 07, 2021 Assessment & Plan (1) Pulmonary mass: CT chest 02/06/2021 : Right upper lobe mass with collapse of the right upper lobe. Multiple nodules are appreciated on the opposite side. Significant mediastinal lymphadenopathy at station 4R right hilar as well as subcarinal --Right upper lobe pulmonary mass with mediastinal lymphadenopathy The patient with [id number] smoking history and 30 pound weight loss This is malignancy until proven otherwise neck Squamous cell carcinoma being high in differential followed by small cell. --Acute hypoxic respiratory failure Likely secondary to underlying mass as well as COPD Continue with O2 supplementation --COPD Continue with Trelegy as an outpatient -Hypercalcemia Likely from underlying cancer -S/p alendronic acid Continue with IV fluids Care as per primary team Plan: For EBUS today. Risk and benefit of the procedure expanded the patient in depth We will proceed with the bronchoscopy around noon time. Please note the above document was generated using voice recognition software. It may contain grammatical, syntax or spelling errors.Any formal questions or concerns about the content, text or information contained within the body of this dictation should be directly addressed to the provider for clarification. (2) Hypoxia: (3) Hypercalcemia: (4) Shortness of breath: History of Present Illness Attending Physician: Marcin Cochran DO History of Present Illness 55-year-old male coming to night because of abdominal chest CT and underlying COPD History: Alcohol abuse. Patient was last seen by me yesterday 02/06/2021 in the office. I send the patient to the ER because of tachycardia and dehydration along with shortness of breath Patient has been on fluids since he came to the hospital. His calcium corrected was greater than 15 He was given zoledronic acid as well as IV fluid At the time of examination today patient states that he is feeling better compared to when he came to the hospital but still complaining of shortness of breath. Denies any headache or blurry vision. Does complain of chest tightness. No fever or chills. COVID-19 was negative No nausea or vomiting. Social history: [id number] smoking history, active smoker, history of heavy alcohol use currently drinking half a bottle of vodka on a daily basis, denies any illicit drug use. 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 No exposure to any chemicals or fumes Pets: 2 cats at home. No birds or poultry nearby Allergies: Seasonal. Does not take any medications for it Asthma: No personal or family history of asthma Lung cancer: No history of lung cancer in the family Allergies Allergy/AdvReac Type Severity Reaction Status Date / Time No Known Drug Allergies Allergy Verified 02/06/21 14:02 Home Medications Medication Instructions Recorded Confirmed Type cholecalciferol (vitamin D3) 1,250 50,000 unit PO WEEKLY 42 Days #6 01/19/21 02/06/21 Rx mcg (50,000 unit) capsule cap albuterol sulfate 90 mcg/actuation 2 puff INHALATION Q6H PRN #18 g 02/06/21 02/06/21 Rx aerosol inhaler [id number]-[id number]-mrgalvei 1 inh INHALATION QAM 02/06/21 02/06/21 History [Trelegy Ellipta] vitamin B complex-folic acid [B 1 tab PO QAM 02/06/21 02/06/21 History Complex 1 (with folic acid)] Patient History Medical History Abdominal pain, RUQ (right upper quadrant) ACS (acute coronary syndrome) June 2010 100 percent RCA occlusion underwent thrombectomy Acute costochondritis Acute respiratory infection Alcohol abuse Arterial occlusion, lower extremity (~01/2021) 100% LT SFA occlusion from ostium with flow reconstitution and prox Pop A Conjunctivitis Constipation Coronary artery vasospasm Depressive disorder, not elsewhere classified (01/15/13) Dyspnea on exertion Elevated ferritin Elevated random blood glucose level Esophageal reflux Fall Foot fracture Fracture of metatarsal bone Fracture of metatarsal bone Gallbladder polyp Hepatic steatosis Hyperlipidemia Hypertension Hypokalemia Infer AMI NEC, init episd (01/15/13) Lung consolidation Multiple rib fractures Osteopenia determined by x-ray Proteinuria Pulmonary mass (02/05/21) IMPRESSION: 1. Pathologic mediastinal hilar and right axillary lymphadenopathy. 2. Suspected central pulmonary mass with obstruction of the right upper lobe bronchus 3. Multiple bilateral pulmonary nodules. Metastatic disease is the diagnosis of exclusion. Recurrent epistaxis Thrombocytosis Tobacco use disorder (01/15/13) Surgical History H/O coronary angiogram Family History Family/Other Alcohol abuse Mother Depression Father Alcohol abuse Depression Denies family history of Ovarian cancer Prostate cancer Myocardial infarction Colorectal cancer Social History Smoking Status: Current every day smoker Tobacco Type: Cigarettes Age Started Using Tobacco: 14; packs per day: 2; Second Hand Exposure: Yes; Hx Alcohol Use: Yes Hx Substance Use: No Preferred Language: Icelandic Communication Ability: Effective Visual Impairment: No Limitations Hearing Ability: Normal Microbiology Lab Analyst Required: No Beliefs That Will Affect Care: None marital status: Current Living Situation: Significant Other Current Living Situation Comment: lives with girlfriend current occupational status: unemployed Feels Safe at Home: Yes caffeine: Yes during the past year weight has: decreased > 10 lbs Dental Care, Regularly: No Physical Activity Frequency: Does not Exercise Seatbelt Use: never Sunscreen Use: No Assistive Devices: Oxygen - Continuous Review of Systems Review of Systems: All systems reviewed & are unremarkable except as noted in HPI & below Physical Exam Physical Exam: Constitutional: No acute distress, frail-appearing HEENT: EOMI, PERRLA Respiratory system: Decreased air entry bilaterally, more decreased on the right side, positive crackles bilateral lower lobes, no wheeze, no rhonchi CVS: S1-S2 positive, no murmurs or gallops, tachycardia Abdomen: Soft, nontender, nondistended, positive bowel sounds x4 Extremities: +2 pulses bilaterally radialis, no cyanosis, no edema, minimal clubbing Neuro: Awake alert oriented x3 Psych: Normal mood and affect Musculoskeletal: Patient seems to have essential tremor. Skin: no rashes, warm and dry Lymphatic: + lymphadenopathy (Positive right supraclavicular lymph node appreciated) Results & Data Results & Data ([facility]) Vital Signs (Past 12 Hours) Vital Signs Temp Pulse Resp BP BP Pulse Ox 02/07/21 11:17 36.9 C 134 H 17 125/80 91 02/07/21 10:57 80 20 95 02/07/21 07:23 115 H 18 97 02/07/21 06:56 36.7 C 117 H 18 123/68 96 02/07/21 03:23 37.7 C H 104 H 20 107/71 95 02/07/21 06:29 02/07/21 06:29 PG Care Time/CCT Total # of Minutes Spent Total Time Spent with Patient: Total time spent is greater than 50% in coordination of care (as documented) at patient's floor/unit and/or counseling patient: Coding Level of Care Code 50115 Initial Inpt Care Lvl 3 Diagnoses Pulmonary mass R91.8 Hypoxia R09.02 Hypercalcemia E83.52 Shortness of breath R06.02
--- NOTE | 2021-02-07 11:54 | Pre Anesthesia Assessment ---
Date of Service February 07, 2021 Pre Sedation Assessment Vital Signs Temp Pulse Pulse Resp BP BP BP 02/07/21 11:17 36.9 C 134 H 17 125/80 02/07/21 10:57 80 20 02/07/21 07:23 115 H 18 02/07/21 06:56 36.7 C 117 H 18 123/68 02/07/21 03:23 37.7 C H 104 H 20 107/71 02/06/21 22:46 36.7 C 92 H 18 104/67 02/06/21 19:45 36.6 C 119 H 22 108/68 02/06/21 18:57 18 02/06/21 16:12 36.7 C 107 H 20 108/71 02/06/21 15:31 36.5 C 117 H 20 114/77 02/06/21 14:00 105 H 24 111/73 02/06/21 13:30 111 H 26 H 115/75 02/06/21 13:19 116 H 26 H 119/73 02/06/21 12:30 115 H 27 H 101/71 02/06/21 12:00 111 H 30 H 107/79 Pulse Ox 02/07/21 11:17 91 02/07/21 10:57 95 02/07/21 07:23 97 02/07/21 06:56 96 02/07/21 03:23 95 02/06/21 22:46 94 02/06/21 19:45 94 02/06/21 18:57 02/06/21 16:12 96 02/06/21 15:31 91 02/06/21 14:00 90 02/06/21 13:30 92 02/06/21 13:19 91 02/06/21 12:30 90 02/06/21 12:00 92 Cardiovascular + tachycardic Respiratory + crackles Pre-Sedation Airway Assessment Smoking Status: Current every day smoker Mallampati Class: II ASA: ASA3 Procedure Planning Contraindications for Sedation: none Current Medications Reviewed: Yes Notes The planned sedation has been discussed with the patient. Informed Consent was obtained. I have identified the patient, determined the appropriateness of sedation and have assessed the patient immediately prior to the procedure. All medicine(s) and interventions are by my order.
--- NOTE | 2021-02-07 12:40 | Communication Note ---
Date of Service: February 07, 2021 Pulmonary addendum: I have seen the patient early in the morning around 7 AM. Patient was awake alert oriented x3 answering all questions appropriately. He was stating that he is thirsty. There has been significant change in his mental status right now. At the time of getting the consent in the [facility] suite patient was somnolent. His heart rate was in the 130s. He was able to answer his name but very slow to answer where he was. He did get 1 mg of Ativan as well as morphine around 8 AM. I do not think patient has the capacity to give consent right now. I tried to look at the next contact but it was listed as a friend. I personally think patient is into DTs given the significant drinking history that he has and he has not had a drink since couple of days. I will cancel the EBUS procedure. I will send the patient to the ICU for close monitoring and possible intubation. I briefly discussed the patient's case with Dr. kSelton. Dr. Cochran was updated. Please note the above document was generated using voice recognition software. It may contain grammatical, syntax or spelling errors.Any formal questions or concerns about the content, text or information contained within the body of this dictation should be directly addressed to the provider for clarification. Coding Level of Care Code None
[2021-02-07] MEDS ORDERED: RAPID SEQUENCE INDUCTION BAG ONE (12:46)
[2021-02-07] MEDS ORDERED: MIDAZOLAM HCL 125MG/250ML D5W ONE (12:53)
--- NOTE | 2021-02-07 13:25 | Critical Care Progress Note ---
Date of Service February 07, 2021 Assessment & Plan (1) Pulmonary mass: Reason Critically Ill: 55-year-old male with acute alcohol withdraw: Delirium tremens PLAN: Neuro: Alcohol withdrawal encephalopathy -Versed infusion Resp: --Right upper lobe pulmonary mass with mediastinal lymphadenopathy The patient with [id number] smoking history and 30 pound weight loss This is malignancy until proven otherwise neck Squamous cell carcinoma being high in differential followed by small cell. --Acute hypoxic respiratory failure Likely secondary to underlying mass as well as COPD Continue with O2 supplementation -Intubation 02/07 secondary to low oxygen saturation, intermittent upper airway obstruction sonorous respirations --COPD Continue with Trelegy as an outpatient CV: Tachycardia -Propranolol 20 mg 3 times daily -Clonidine 0.1 mg p.o. daily Fluids/Renal: Normosol 200 mL/h ID: Monitor fever curve GI/Nutrition: Initiate tube feeding Heme: History of arterial thrombus DVT prophylaxis: Lovenox Endocrine: ICU hyperglycemia protocol -Hypercalcemia Likely from underlying cancer -S/p alendronic acid Continue with IV fluids Vascular access: Peripheral IV Code Status: Full Disposition: ICU Friend contacted hospital informed me the patient drinks vodka daily. He does not have a medical power of business attorney he has 1 adult living child who he is estranged from and not had contact. Otherwise he has a mother and a brother and she is attempting to contact them to contact the hospital for information as well as consent. The patient is currently intubated and could facilitate work- up of his lung mass and if we can get in contact with one of the family members I believe it is reasonable that they could provide consent for EBUS. (2) Hypoxia: (3) Hypercalcemia: (4) Shortness of breath: (5) Hypercalcemia: (6) Alcohol dependence: (7) Alcohol withdrawal delirium: Admission and Anticipated Discharge Date Admission Date: February 06, 2021 Supervising Physician Co-Signing Physician Notes I have personally spent eighty minutes of critical care time in the direct management of this patient. This is a life/limb threatening event. This includes time spent evaluating patient, direct bedside care, chart review, placing orders, interpretation of diagnostic studies, discussion with consultants, patient, and/or family members regarding treatment decisions, as well as other required patient management activities. This time is exclusive of all separately billable procedures, and teaching time and separate from and in addition to any other critical care service time. Subjective History of present illness: Patient is a 55-year-old male who was admitted to the hospital to undergo EBUS for a chest mass, he drinks approximately 1 pint of vodka daily he had cut back however he is not had a drink in 2 to 3 days; this morning he had increasing confusion and became tachycardic. Patient was transferred to the ICU for acute delirium tremens. Past medical history: Patient is somnolent not able to participate in history taking: Records reviewed as per [facility] Review of Systems Review of Systems: Unobtainable due to cognitive status Physical Exam Physical Exam: General: Opens eyes to voice, hyperactive delirium Skin: Warm, mild diaphoresis, Head: Atraumatic Ears, nose, mouth and throat: Sonorous respirations when I entered the room with patient sleeping Cardiovascular: Normal peripheral perfusion, tachycardia Respiratory: Tachypnea Gastrointestinal: Non distended Musculoskeletal: No deformity Results & Data Results & Data ([facility]) Vital Signs (Past 12 Hours) Vital Signs Temp Pulse Resp BP BP Pulse Ox 02/07/21 11:45 138 H 16 117/77 94 02/07/21 11:17 36.9 C 134 H 17 125/80 91 02/07/21 10:57 80 20 95 02/07/21 07:23 115 H 18 97 02/07/21 06:56 36.7 C 117 H 18 123/68 96 02/07/21 03:23 37.7 C H 104 H 20 107/71 95 Laboratory Results 02/07/21 02/07/21 02/07/21 Range/Units 06:29 06:29 06:29 WBC 12.82 H (4.8-10.8) K/uL RBC 3.91 L (4.7-6.1) M/uL Hgb 13.2 L (14.0-18.0) g/dL Hct 40.6 L (42-52) % MCV 103.8 H (80-100) fL MCH 33.8 (25-34) pg MCHC 32.5 (32-36) g/dL RDW Std Deviation 48.4 H (36.4-46.3) fL RDW Coeff of Apol[place] 12.8 (11.5-14.5) % Plt Count 338 (130-400) K/uL MPV 11.1 H (7.4-10.4) fL Immature Gran % (Auto) 0.5 % Neut % (Auto) 86.1 % Lymph % (Auto) 6.9 % Door % (Auto) 5.1 % Eos % (Auto) 0.9 % Baso % (Auto) 0.5 % Neut # (Auto) 11.02 H (1.4-6.5) K/uL Lymph # (Auto) 0.89 L (1.2-3.4) K/uL Door # (Auto) 0.66 H (0.11-0.59) K/uL Eos # (Auto) 0.11 (0-0.5) K/uL Baso # (Auto) 0.07 (0-0.2) K/uL Immature Gran # (Auto) 0.07 H (0.00-0.02) K/uL Sodium 138 (136-145) mmol/L Potassium 3.7 (3.5-5.1) mmol/L Chloride 106 (98-107) mmol/L Carbon Dioxide 27 (21-32) mmol/L Anion Gap 5.0 (3-11) BUN 12 (7-18) mg/dl Creatinine 0.66 (0.6-1.4) mg/dl Est Cr Clr Drug Dosing 120.9 ml/min Est GFR ( Amer) 125.3 ml/min Est GFR (Non-Af Amer) 108.1 ml/min BUN/Creatinine Ratio 18.9 (10-20) Glucose 91 (70-99) mg/dl Calcium 11.6 H D (8.5-10.1) mg/dl Ionized Calcium (1.12-1.32) mmol/L Phosphorus 2.5 (2.5-4.9) mg/dl Magnesium 1.6 L (1.8-2.4) mg/dl Total Bilirubin 0.3 (0.2-1) mg/dl AST 26 (15-37) U/L ALT 14 (12-78) U/L Alkaline Phosphatase 114 (45-117) U/L Total Protein 6.4 (6.4-8.2) gm/dl Albumin 2.0 L (3.4-5.0) gm/dl Globulin 4.4 H (2.5-4.0) gm/dl Albumin/Globulin Ratio 0.5 L (0.9-2) PTH Intact (18.4-80.1) pg/ml PTH Related Protein 02/06/21 02/06/21 02/06/21 Range/Units 16:04 16:04 16:04 WBC (4.8-10.8) K/uL RBC (4.7-6.1) M/uL Hgb (14.0-18.0) g/dL Hct (42-52) % MCV (80-100) fL MCH (25-34) pg MCHC (32-36) g/dL RDW Std Deviation (36.4-46.3) fL RDW Coeff of Apol[place] (11.5-14.5) % Plt Count (130-400) K/uL MPV (7.4-10.4) fL Immature Gran % (Auto) % Neut % (Auto) % Lymph % (Auto) % Door % (Auto) % Eos % (Auto) % Baso % (Auto) % Neut # (Auto) (1.4-6.5) K/uL Lymph # (Auto) (1.2-3.4) K/uL Door # (Auto) (0.11-0.59) K/uL Eos # (Auto) (0-0.5) K/uL Baso # (Auto) (0-0.2) K/uL Immature Gran # (Auto) (0.00-0.02) K/uL Sodium (136-145) mmol/L Potassium (3.5-5.1) mmol/L Chloride (98-107) mmol/L Carbon Dioxide (21-32) mmol/L Anion Gap (3-11) BUN (7-18) mg/dl Creatinine (0.6-1.4) mg/dl Est Cr Clr Drug Dosing ml/min Est GFR ( Amer) ml/min Est GFR (Non-Af Amer) ml/min BUN/Creatinine Ratio (10-20) Glucose (70-99) mg/dl Calcium (8.5-10.1) mg/dl Ionized Calcium 1.56 H (1.12-1.32) mmol/L Phosphorus (2.5-4.9) mg/dl Magnesium (1.8-2.4) mg/dl Total Bilirubin (0.2-1) mg/dl AST (15-37) U/L ALT (12-78) U/L Alkaline Phosphatase (45-117) U/L Total Protein (6.4-8.2) gm/dl Albumin (3.4-5.0) gm/dl Globulin (2.5-4.0) gm/dl Albumin/Globulin Ratio (0.9-2) PTH Intact < 6.3 L (18.4-80.1) pg/ml PTH Related Protein Pending Coding Level of Care Code Critical Care ea addt'l 30 min Diagnoses Pulmonary mass R91.8 Hypoxia R09.02 Hypercalcemia E83.52 Shortness of breath R06.02 Hypercalcemia E83.52 Alcohol dependence F10.20 Alcohol withdrawal delirium F10.231
[2021-02-07] MEDS ORDERED: STAT IV Infusion **Titration per Protocol STA ×3 (13:35→22:34)
[2021-02-07] MEDS ORDERED: ICU PROTOCOL FOR HYPERGLYCEMIA PRN (13:35)
[2021-02-07] MEDS: THIAMINE HCL 100 MG TAB PO SCH (13:37)
[2021-02-07] MEDS: FOLIC ACID 1 MG TAB PO SCH (13:38)
[2021-02-07] MEDS ORDERED: cloNIDine HCL 0.1 MG TAB PO SCH (13:45)
[2021-02-07] MEDS ORDERED: PEPTAMEN INTENSE VHP 1.0 CAL 1,000 ML BAG OG SCH (13:45)
[2021-02-07] MEDS ORDERED: LANSOPRAZOLE 30 MG SOLTAB NG ONE (14:00)
--- NOTE | 2021-02-07 14:06 | Procedure Note ---
Procedure Note Date of Service February 07, 2021 Procedure Date: Noted above Procedure: Endotracheal intubation Pre-procedure Diagnosis: Acute hypoxic respiratory failure Post-procedure Diagnosis: same as above Prior to Procedure: Informed Consent: emergent Attending Staff: Andrew Skelton DO The identity of the patient was confirmed and a bedside time out was performed. Description of Procedure: Patient was evaluated and required intubation for impending respiratory failure. The patient was prepared in the usual fashion. A MAC four laryngoscope was used. A eight mm inner diameter endotrachial tube was placed endotracheally to twenty-five cm at the gum ridge. A grade two view was obtained. The endotracheal tube was noted to pass through the vocal cords. Chest rise was bilateral. Bilateral breath sounds were heard without air sounds in the abdomen. Mist was noted in the endotracheal tube. End-tidal CO2 measurement was positive. Chest x-ray shows proper endotracheal tube placement. Complications: None Findings: Not applicable Specimens: Not applicable Estimated blood loss: Zero Coding CPT Codes Resuscitation - Resuscitation: 75005 Endotracheal Intubation, emergency ([id number]) [facility] [place] Procedure Codes (Charges) Resuscitation Resuscitation: 17094 Endotracheal Intubation, emergency
--- NOTE | 2021-02-07 14:06 | XRay Report ---
XR chest 1V portable CLINICAL HISTORY: intubation RESPIRATORY FAILURE COMPARISON STUDY: CT angiography dated 02/06/2021 FINDINGS: There is an endotracheal tube 6.2 cm above the mariam. There is opacification of the right upper lung zone, likely secondary to the patient's known pulmonary mass and right upper lobe postobst ructive pneumonitis. There are minor airspace opacities at the right lung base. There are old right-s ided rib deformities. There is an enteric tube which passes into the stomach..[ IMPRESSION: 1. Endotracheal tube 6.2 cm above the mariam 2. Enteric tube positioned with its tip in the stomach 3. Right upper lobe opacity, likely secondary to a centrally obstructing mass with post obstructive p neumonitis 4. Right basilar airspace opacities ACT 112: Negative or not required by law. Electronically signed by: Jose Martin Ho M.D. 02/07/2021 2:04 PM
[2021-02-07] MEDS: fentaNYL citrate 100 MCG/2 ML VIAL IV PRN ×2 (14:20→23:30)
[2021-02-07] MEDS: PROPRANOLOL HCL 20 MG TAB PO SCH ×2 (16:02→21:08)
[2021-02-07] MEDS: MIDAZOLAM HCL 125 MG/250 ML BAG IV SCH (16:16)
[2021-02-07] MEDS: NORMOSOL-R 1,000 ML IV SCH ×2 (16:17→22:02)
[2021-02-07] MEDS: ENOXAPARIN INJ 40 MG/0.4 ML SYR SQ SCH (16:18)
--- NOTE | 2021-02-07 18:04 | Billing Data ---
Date of Service February 07, 2021 Coding Level of Care Code 97278 Subseq Hosp Care Lvl 2
[2021-02-07] MEDS: MIDAZOLAM BOLUS FROM BAG IV PRN ×2 (19:31→23:23)
[2021-02-07 20:03] LABS: BUN Creatinine Ratio 17.3 (10-20); Calcium 10.9 mg/dl (8.5-10.1); Creatinine Clr Calc Pharmacy 112.4 ml/min; Est GFR (African American) 121.6 ml/min; Est GFR (Non-African American) 104.9 ml/min; Potassium 3.8 mmol/L (3.5-5.1)
[2021-02-07 20:05] LABS: Phosphorus 3.4 mg/dl (2.5-4.9)
[2021-02-07] MEDS ORDERED: DEXMEDETOMIDINE HCL 400 MCG in 0.9 % SODIUM CHLORIDE 96 ML IV SCH (20:15)
[2021-02-07] MEDS: ACETAMINOPHEN SUSP 325 MG/10.15 ML UDC PO PRN (20:20)
[2021-02-07] MEDS ORDERED: DOCUSATE SODIUM 100 MG CAP PO SCH (21:00)
[2021-02-07] MEDS: DOCUSATE SODIUM SYRUP 100 MG/10 ML UDC PO SCH (21:06)
[2021-02-07] MEDS: MAGNESIUM OXIDE 400 MG TAB PO SCH (21:06)
[2021-02-07] MEDS ORDERED: NORMOSOL-R 500 ML IV ONE (21:24)
[2021-02-07] MEDS ORDERED: POTASSIUM CHLORIDE 20 MEQ/15 ML UDC PO STA (21:25)
[2021-02-07] MEDS ORDERED: ALBUMIN 5% 250 ML IV ONE (22:12)
[2021-02-07] MEDS: NOREPINEPHRINE/D5W 8 MG/508 ML BAG IV SCH (22:56)
[2021-02-07 23:10] LABS: Hematocrit (blood only) 36.9 % (42-52); Hemoglobin 12.2 g/dL (14.0-18.0); Mean Corpuscular Hemoglobin 33.8 pg (25-34); Mean Corpuscular Hgb Conc 33.1 g/dL (32-36); Mean Corpuscular Volume 102.2 fL (80-100); Mean Platelet Volume 10.3 fL (7.4-10.4); Platelet Count 284 K/uL (130-400); RDW Coefficient of Variation 12.9 % (11.5-14.5); RDW Standard Deviation 48.2 fL (36.4-46.3); Red Blood Count 3.61 M/uL (4.7-6.1); White Blood Count 11.15 K/uL (4.8-10.8)
[2021-02-08] MEDS: NORMOSOL-R 1,000 ML IV SCH ×5 (00:40→21:21)
[2021-02-08] MEDS ORDERED: PIPERACILL/TAZOBAC CONSULT ACTIVE PRN ×2 (00:51)
[2021-02-08] MEDS ORDERED: PIPERACILLIN/TAZOBACTAM 4.5 GM in DEXTROSE 5% 100 ML IV ONE (01:00)
[2021-02-08] MEDS: MIDAZOLAM BOLUS FROM BAG IV PRN ×2 (01:07→21:00)
[2021-02-08] MEDS: fentaNYL citrate 100 MCG/2 ML VIAL IV PRN ×7 (01:17→23:34)
[2021-02-08 01:50] LABS: BUN Creatinine Ratio 19.9 (10-20); Calcium 9.9 mg/dl (8.5-10.1); Creatinine Clr Calc Pharmacy 128.7 ml/min; Est GFR (African American) 128.5 ml/min; Est GFR (Non-African American) 110.9 ml/min; Potassium 3.8 mmol/L (3.5-5.1)
[2021-02-08] MEDS ORDERED: fentaNYL citrate 100 MCG/2 ML VIAL IV STA (03:49)
[2021-02-08] MEDS: MIDAZOLAM HCL 125 MG/250 ML BAG IV SCH ×3 (04:06→22:30)
[2021-02-08] MEDS ORDERED: VECURONIUM BROMIDE 10 MG VIAL IV ONE (04:09)
[2021-02-08] MEDS ORDERED: VECURONIUM BROMIDE 10 MG VIAL IV STA (05:57)
[2021-02-08] MEDS ORDERED: PIPERACILLIN/TAZOBACTAM 3.375 GM in DEXTROSE 5% 100 ML IV SCH (06:00)
[2021-02-08 06:04] LABS: Basophils # (auto) 0.11 K/uL (0-0.2); Basophils % (auto) 0.9 %; Eosinophils # (auto) 0.15 K/uL (0-0.5); Eosinophils % (auto) 1.2 %; Hematocrit (blood only) 38.9 % (42-52); Hemoglobin 12.7 g/dL (14.0-18.0); Immature Granulocytes # (auto) 0.07 K/uL (0.00-0.02); Immature Granulocytes % (auto) 0.6 %; Lymphocytes # (auto) 1.12 K/uL (1.2-3.4); Lymphocytes % (auto) 8.9 %; Mean Corpuscular Hemoglobin 33.5 pg (25-34); Mean Corpuscular Hgb Conc 32.6 g/dL (32-36); Mean Corpuscular Volume 102.6 fL (80-100); Mean Platelet Volume 10.3 fL (7.4-10.4); Monocytes # (auto) 1.31 K/uL (0.11-0.59); Monocytes % (auto) 10.4 %; Neutrophils # (auto) 9.87 K/uL (1.4-6.5); Platelet Count 319 K/uL (130-400); RDW Standard Deviation 48.9 fL (36.4-46.3); Red Blood Count 3.79 M/uL (4.7-6.1); White Blood Count 12.63 K/uL (4.8-10.8)
[2021-02-08] MEDS ORDERED: GADOBUTROL 65ML VIAL IV ONE (06:20)
[2021-02-08 06:32] LABS: Albumin Level 2.2 gm/dl (3.4-5.0); BUN Creatinine Ratio 20.7 (10-20); Calcium 10.2 mg/dl (8.5-10.1); Creatinine Clr Calc Pharmacy 128.7 ml/min; Est GFR (African American) 128.5 ml/min; Est GFR (Non-African American) 110.9 ml/min; Magnesium 2.4 mg/dl (1.8-2.4); Potassium 3.7 mmol/L (3.5-5.1)
[2021-02-08 06:36] LABS: Bilirubin Direct 0.1 mg/dl (0-0.2); Bilirubin,Total 0.3 mg/dl (0.2-1); Phosphorus 3.4 mg/dl (2.5-4.9)
--- NOTE | 2021-02-08 07:28 | Critical Care Progress Note ---
Date of Service February 08, 2021 Assessment & Plan (1) Pulmonary mass: Reason Critically Ill: 55-year-old male with acute alcohol withdraw: Delirium tremens PLAN: Neuro: Alcohol withdrawal encephalopathy -Versed infusion Resp: --Right upper lobe pulmonary mass with mediastinal lymphadenopathy The patient with [id number] smoking history and 30 pound weight loss This is malignancy until proven otherwise neck Squamous cell carcinoma being high in differential followed by small cell. --Acute hypoxic respiratory failure Likely secondary to underlying mass as well as COPD Continue with O2 supplementation -Intubation 02/07 secondary to low oxygen saturation, intermittent upper airway obstruction sonorous respirations --COPD Continue with Trelegy as an outpatient CV: Tachycardia resolved -Propranolol 10 mg 3 times daily -Clonidine 0.1 mg p.o. daily Fluids/Renal: Normosol 200 mL/h ID: Monitor fever curve -At risk for obstructive lesion GI/Nutrition: Initiate tube feeding after biopsy today Heme: History of arterial thrombus DVT prophylaxis: Lovenox Endocrine: ICU hyperglycemia protocol -Hypercalcemia Likely from underlying cancer -S/p alendronic acid Continue with IV fluids -10 mg IV Lasix x1 Vascular access: Peripheral IV Code Status: Full Disposition: ICU Brother Nicolás providing consent (2) Hypoxia: (3) Hypercalcemia: (4) Shortness of breath: (5) Alcohol dependence: (6) Alcohol withdrawal delirium: Admission and Anticipated Discharge Date Admission Date: February 06, 2021 Supervising Physician Co-Signing Physician Notes Patient was discussed in multidisciplinary rounds I have personally spent 40 minutes of critical care time in the direct management of this patient. This is a life/limb threatening event. This includes time spent evaluating patient, direct bedside care, chart review, placing orders, interpretation of diagnostic studies, discussion with consultants, patient, and/or family members regarding treatment decisions, as well as other required patient management activities. This time is exclusive of all separately billable procedures, and teaching time and separate from and in addition to any other critical care service time. Subjective No overnight events on schedule for biopsy at 1300 Review of Systems Review of Systems: Unobtainable due to endotracheal tube Physical Exam Physical Exam: General: Easily agitated Skin: Warm, dry Head: Atraumatic Ears, nose, mouth and throat: Airway obscured by endotracheal tube Cardiovascular: Normal peripheral perfusion Respiratory: Ventilator settings reviewed Gastrointestinal: Non distended Musculoskeletal: No deformity Results & Data Results & Data ([facility]) Vital Signs (Past 12 Hours) Vital Signs Temp Pulse Resp BP Pulse Ox 02/08/21 06:20 67 90/64 L 95 02/08/21 06:09 36.6 C 75 113/78 96 02/08/21 06:00 74 02/08/21 05:30 130/93 02/08/21 05:00 109/82 100 02/08/21 04:01 72 24 96/64 L 95 02/08/21 04:00 37.1 C 02/08/21 03:56 69 16 95 02/08/21 03:46 70 16 98/66 L 95 02/08/21 03:31 71 16 99/66 L 95 02/08/21 03:16 68 16 100/67 95 02/08/21 03:01 71 16 95/65 L 95 02/08/21 02:47 72 16 92/63 L 95 02/08/21 02:46 71 16 96/64 L 95 02/08/21 02:31 75 16 94/64 L 94 02/08/21 02:24 76 16 95/64 L 94 02/08/21 02:16 79 16 78/54 L 93 02/08/21 02:13 76 16 86/56 L 93 02/08/21 02:08 88 26 H 101/55 L 02/08/21 01:59 76 24 97/68 L 97 02/08/21 01:46 74 26 H 85/60 L 95 02/08/21 01:31 75 85/58 L 95 02/08/21 01:15 85 107/72 97 02/08/21 01:01 75 93/66 L 95 02/08/21 00:46 74 87/65 L 95 02/08/21 00:16 75 89/59 L 96 02/08/21 00:08 36.8 C 02/07/21 23:46 76 100/70 95 02/07/21 23:39 77 19 95 02/07/21 23:25 89 103/63 96 02/07/21 22:58 78 103/67 96 02/07/21 22:45 86 89/64 L 94 02/07/21 22:31 89 74/51 L 94 02/07/21 22:07 95 H 84/69 L 94 02/07/21 22:01 92 H 77/53 L 92 02/07/21 21:57 37.5 C 02/07/21 21:56 92 H 78/53 L 92 02/07/21 21:46 96 H 81/54 L 93 02/07/21 21:38 97 H 81/55 L 92 02/07/21 21:30 99 H 93 02/07/21 21:26 100 H 91/62 L 93 02/07/21 21:23 102 H 71/51 L 93 02/07/21 21:16 104 H 76/51 L 94 02/07/21 21:03 108 H 23 77/54 L 93 02/07/21 21:01 110 H 24 79/52 L 94 02/07/21 20:59 109 H 22 79/53 L 94 02/07/21 20:53 110 H 24 85/59 L 94 02/07/21 20:49 113 H 27 H 88/55 L 92 02/07/21 20:46 117 H 86/59 L 93 02/07/21 20:31 120 H 109/67 96 02/07/21 20:17 120 H 113/61 98 02/07/21 20:01 120 H 113/65 98 02/07/21 19:47 116 H 107/67 94 02/07/21 19:37 109 H 26 H 94 02/07/21 19:32 110 H 105/71 98 Coding Level of Care Code Critical Care 1st 30-74 mins Diagnoses Pulmonary mass R91.8 Hypoxia R09.02 Hypercalcemia E83.52 Shortness of breath R06.02 Alcohol dependence F10.20 Alcohol withdrawal delirium F10.231
[2021-02-08] MEDS: ALBUT/IPRATROP 3MG/0.5MG NEB 3 ML VIAL NEB SCH ×4 (07:38→20:12)
[2021-02-08] MEDS: FOLIC ACID 1 MG TAB PO SCH (07:42)
[2021-02-08] MEDS: THIAMINE HCL 100 MG TAB PO SCH (07:42)
[2021-02-08] MEDS: DOCUSATE SODIUM SYRUP 100 MG/10 ML UDC PO SCH ×2 (07:42→20:15)
--- NOTE | 2021-02-08 07:46 | Hospitalist Progress Note ---
Date of Service February 08, 2021 Assessment & Plan (1) Alcohol withdrawal delirium: Mario Verduzco is a 55-year-old male with past medical history of COPD, hypertension, hyperlipidemia, coronary artery disease, and [id number] smoking history; who presented to the hospital for evaluation and endobronchial ultrasound. Subsequently had worsening of condition given alcohol history and developed acute alcohol withdrawal Alcohol withdrawal delirium: -Intubated and sedated in the ICU -Continue management per ICU provider -Maintain sedation per ICU -Once stable for transfer out of ICU will resume care Pulmonary mass: -CT lung from 02/05 demonstrating pathologic mediastinal hilar and right axillary lymphadenopathy, suspected central pulmonary mass with obstruction of the right upper lobe bronchus, multiple bilateral pulmonary nodules -MRI brain concerning for 3 mm focus of subcortical enhancement within the left frontal lobe, and 12 mm lesion within the right frontoparietal calvarium, and 6 mm lesion within the right lateral orbital process -Findings and imaging concerning for metastatic pulmonary cancer currently undifferentiated -EBUS procedure on hold at this time -Pulmonology consulted: Appreciate continued recommendations CODE STATUS: Full code (2) Pulmonary mass: Admission and Anticipated Discharge Date Admission Date: February 06, 2021 Supervising Physician Co-Signing Physician Notes I personally examined the patient and verified all guan points of history and exam, discussed case, and agree with decision making with Dr Parham intubated, sedated, no new problems identified Vitals noted, in general he is intubated sedated no distress. Breathing unlabored on the vent. No focal neuro deficits at rest. lung mass - almost certainly malignant. for EBUS, MRI brain concerning. EtOH withdrawal - ICU care otherwise as above Subjective Yesterday afternoon patient was required to be transferred to the ICU for delirium tremens concerns and alcohol withdrawal. Since that time patient has subsequently been intubated and maintained on mechanical ventilation. Being maintained in sedation with Versed infusion to limit continued alcohol withdrawal and maintain sedation. Discussions on neck steps in regards to bronchogenic carcinoma and previously planned endobronchial ultrasound for biopsy pending. Review of Systems Review of Systems: Unobtainable due to endotracheal tube Physical Exam Constitutional: WD/WN, vitals as above Intubated and sedated Cardiovascular: Rate/Rhythm: regular rate and regular rhythm Heart Sounds: no gallop, no murmur and no cardiac rub Vessels: normal peripheral pulses; no JVD Extremities: no edema Gastrointestinal (Abdomen): Inspection/Auscultation: normal bowel sounds; abdomen not distended Percussion/Palpation: abdomen soft; abdomen nontender and no guarding Musculoskeletal: no cyanosis or clubbing, extremities motor strength 5/5 Skin: no rashes, warm and dry Psychiatric: Intubated sedated with Versed drip Results & Data Results & Data ([facility]) Vital Signs (Past 12 Hours) Vital Signs Temp Pulse Resp BP Pulse Ox 02/08/21 06:20 67 90/64 L 95 02/08/21 06:09 36.6 C 75 113/78 96 02/08/21 06:00 74 02/08/21 05:30 130/93 02/08/21 05:00 109/82 100 02/08/21 04:01 72 24 96/64 L 95 02/08/21 04:00 37.1 C 02/08/21 03:56 69 16 95 02/08/21 03:46 70 16 98/66 L 95 02/08/21 03:31 71 16 99/66 L 95 02/08/21 03:16 68 16 100/67 95 02/08/21 03:01 71 16 95/65 L 95 02/08/21 02:47 72 16 92/63 L 95 02/08/21 02:46 71 16 96/64 L 95 02/08/21 02:31 75 16 94/64 L 94 02/08/21 02:24 76 16 95/64 L 94 02/08/21 02:16 79 16 78/54 L 93 02/08/21 02:13 76 16 86/56 L 93 02/08/21 02:08 88 26 H 101/55 L 02/08/21 01:59 76 24 97/68 L 97 02/08/21 01:46 74 26 H 85/60 L 95 02/08/21 01:31 75 85/58 L 95 02/08/21 01:15 85 107/72 97 02/08/21 01:01 75 93/66 L 95 02/08/21 00:46 74 87/65 L 95 02/08/21 00:16 75 89/59 L 96 02/08/21 00:08 36.8 C 02/07/21 23:46 76 100/70 95 02/07/21 23:39 77 19 95 02/07/21 23:25 89 103/63 96 02/07/21 22:58 78 103/67 96 02/07/21 22:45 86 89/64 L 94 02/07/21 22:31 89 74/51 L 94 02/07/21 22:07 95 H 84/69 L 94 02/07/21 22:01 92 H 77/53 L 92 02/07/21 21:57 37.5 C 02/07/21 21:56 92 H 78/53 L 92 02/07/21 21:46 96 H 81/54 L 93 02/07/21 21:38 97 H 81/55 L 92 02/07/21 21:30 99 H 93 02/07/21 21:26 100 H 91/62 L 93 02/07/21 21:23 102 H 71/51 L 93 02/07/21 21:16 104 H 76/51 L 94 02/07/21 21:03 108 H 23 77/54 L 93 02/07/21 21:01 110 H 24 79/52 L 94 02/07/21 20:59 109 H 22 79/53 L 94 02/07/21 20:53 110 H 24 85/59 L 94 02/07/21 20:49 113 H 27 H 88/55 L 92 02/07/21 20:46 117 H 86/59 L 93 02/07/21 20:31 120 H 109/67 96 02/07/21 20:17 120 H 113/61 98 02/07/21 20:01 120 H 113/65 98 02/07/21 19:47 116 H 107/67 94 Resident Activity Tracking Resident Involvement: Resident Care Provided Care Provided: Adult Hospital Medicine
--- NOTE | 2021-02-08 08:15 | XRay Report ---
XR chest 1V portable HISTORY: Respiratory failure. COMPARISON: Chest 02/07/2021. FINDINGS: Dense right upper lobe opacification is again noted.. The endotracheal tube terminates 2.9 cm from the mariam. Nasogastric tube terminates below the diaphragm. Diffuse interstitial thickening within the left lung persists. The heart is normal in size. IMPRESSION: 1. Satisfactory support line placement. 2. No change in the dense right upper lobe opacification. ACT 112: Negative or not required by law. Electronically signed by: Navjot Christianson M.D. 02/08/2021 8:13 AM
[2021-02-08] MEDS ORDERED: LANSOPRAZOLE 30 MG SOLTAB NG SCH (09:00)
--- NOTE | 2021-02-08 09:01 | Magnetic Resonance Report ---
MRI OF THE BRAIN WITHOUT AND WITH IV CONTRAST CLINICAL HISTORY: Bronchogenic carcinoma. Evaluate for metastatic disease. COMPARISON STUDY: Noncontrast head CT dated 02/06/2021 TECHNIQUE: MRI of the brain was performed from the vertex to the skull base utilizing various T1 and T2 weighted sequences. Following the IV administration of 7.2 mL of Gadavist contrast, additional enh anced images were obtained. FINDINGS: Sagittal T1, axial diffusion, proton density and T2 weighted axial, coronal FLAIR, and pre and post a xial T1-weighted images were acquired. These were supplemented with post gadolinium coronal T1 weight ed images. There is a 12 mm lesion within the right frontoparietal calvarium. There is a 6 mm lesion within the right lateral orbital process. Calvarial metastatic lesions are the diagnosis of exclusion. Axial diffusion-weighted images reveal no evidence of acute or subacute infarction. There is no evidence of ventricular dilatation. Proton density T2-weighted and FLAIR images reveal scattered foci of increased T2 signal within the w joe matter, likely on a small vessel basis. There are no abnormal flow voids. There is a 3 mm focus of subcortical enhancement within the left frontal lobe. There is adjacent whit e matter edema. A small metastatic deposit is not excluded. Attention this area in follow-up is recom mended. IMPRESSION: 1. 3 mm focus of subcortical enhancement within the left frontal lobe. Given the history of lung carc inoma, a tiny metastatic deposit must be considered although the lesion is nonspecific. Short-term fo llow-up recommended. 2. 12 mm lesion within the right frontoparietal calvarium, and 6 mm lesion within the right lateral o rbital process. Given the history of lung carcinoma, calvarial metastatic lesions are suspected. ACT 112: Negative or not required by law. Electronically signed by: Jose Martin Ho M.D. 02/08/2021 8:59 AM
--- NOTE | 2021-02-08 09:43 | Pulmonology Progress Note ---
Date of Service February 08, 2021 Assessment & Plan (1) Pulmonary mass: CT chest 02/06/2021 : Right upper lobe mass with collapse of the right upper lobe. Multiple nodules are appreciated on the opposite side. Significant mediastinal lymphadenopathy at station 4R right hilar as well as subcarinal --Right upper lobe pulmonary mass with mediastinal lymphadenopathy The patient with [id number] smoking history and 30 pound weight loss This is malignancy until proven otherwise neck Squamous cell carcinoma being high in differential followed by small cell. --Acute hypoxic respiratory failure Likely secondary to underlying mass as well as COPD Continue with O2 supplementation --COPD Continue with Trelegy as an outpatient -Hypercalcemia Likely from underlying cancer -S/p zalendronic acid, improving Continue with IV fluids Care as per primary team --DTs requiring ventilator support management as per ICU team Plan: Patient is supposed to have IR guided right supraclavicular lymph node biopsy done today. This will help with the staging diagnosis. If there is not enough tissue the bronchoscopy will forceps biopsy be thought of. Please note the above document was generated using voice recognition software. It may contain grammatical, syntax or spelling errors.Any formal questions or concerns about the content, text or information contained within the body of this dictation should be directly addressed to the provider for clarification. (2) Hypoxia: (3) Hypercalcemia: (4) Shortness of breath: Admission and Anticipated Discharge Date Admission Date: February 06, 2021 Subjective Patient seen and examined at bedside. Intubated, sedated on low-dose vasopressor. Yesterday patient went into DTs and unfortunately EBUS was not able to be performed. He was subsequently intubated in the ICU. I spoke with IR and discuss the supraclavicular lymph node and if they could biopsy it to get the diagnosis as well as staging at the same time they are planning to do it today. Has been afebrile. Review of Systems Review of Systems: Unobtainable due to endotracheal tube Physical Exam Physical Exam: Constitutional: Intubated HEENT: PERRLA, positive ETT Respiratory system: Decreased air entry bilaterally, more decreased on the right side, positive crackles bilateral lower lobes, no wheeze, no rhonchi CVS: S1-S2 positive, no murmurs or gallops, tachycardia Abdomen: Soft, nontender, nondistended, positive bowel sounds x4 Extremities: +2 pulses bilaterally radialis, no cyanosis, no edema, minimal clubbing Neuro: RASS -2, positive corneal, positive pupillary, positive gag Psych: Unable to assess G/U: Positive Jay Skin: no rashes, warm and dry Lymphatic: + lymphadenopathy (Positive right supraclavicular lymph node appreciated) Results & Data Results & Data ([facility]) Vital Signs (Past 12 Hours) Vital Signs Temp Pulse Pulse Resp BP Pulse Ox 02/08/21 09:08 81 99/68 L 94 02/08/21 09:01 85 94 02/08/21 08:53 87 98/67 L 94 02/08/21 08:38 90 111/72 94 02/08/21 08:23 86 104/69 93 02/08/21 08:08 88 106/69 93 02/08/21 08:01 36.6 C 88 92 02/08/21 07:53 82 108/72 92 02/08/21 07:47 73 93 02/08/21 07:40 80 16 93 02/08/21 07:38 66 96/67 L 94 02/08/21 07:23 67 95/69 L 94 02/08/21 07:08 67 91/67 L 94 02/08/21 07:00 67 94 02/08/21 06:54 73 100/72 94 02/08/21 06:38 69 95/67 L 95 02/08/21 06:20 67 90/64 L 95 02/08/21 06:09 36.6 C 75 113/78 96 02/08/21 06:00 74 02/08/21 05:30 130/93 02/08/21 05:00 109/82 100 02/08/21 04:01 72 24 96/64 L 95 02/08/21 04:00 37.1 C 02/08/21 03:56 69 16 95 02/08/21 03:46 70 16 98/66 L 95 02/08/21 03:31 71 16 99/66 L 95 02/08/21 03:16 68 16 100/67 95 02/08/21 03:01 71 16 95/65 L 95 02/08/21 02:47 72 16 92/63 L 95 02/08/21 02:46 71 16 96/64 L 95 02/08/21 02:31 75 16 94/64 L 94 02/08/21 02:24 76 16 95/64 L 94 02/08/21 02:16 79 16 78/54 L 93 02/08/21 02:13 76 16 86/56 L 93 02/08/21 02:08 88 26 H 101/55 L 02/08/21 01:59 76 24 97/68 L 97 02/08/21 01:46 74 26 H 85/60 L 95 02/08/21 01:31 75 85/58 L 95 02/08/21 01:15 85 107/72 97 02/08/21 01:01 75 93/66 L 95 02/08/21 00:46 74 87/65 L 95 02/08/21 00:16 75 89/59 L 96 02/08/21 00:08 36.8 C 02/07/21 23:46 76 100/70 95 02/07/21 23:39 77 19 95 02/07/21 23:25 89 103/63 96 02/07/21 22:58 78 103/67 96 02/07/21 22:45 86 89/64 L 94 02/07/21 22:31 89 74/51 L 94 02/07/21 22:07 95 H 84/69 L 94 02/07/21 22:01 92 H 77/53 L 92 02/07/21 21:57 37.5 C 02/07/21 21:56 92 H 78/53 L 92 02/07/21 21:46 96 H 81/54 L 93 02/08/21 05:51 02/08/21 05:51 PG Care Time/CCT Total # of Minutes Spent Total Time Spent with Patient: Total time spent is greater than 50% in coordination of care (as documented) at patient's floor/unit and/or counseling patient: Coding Level of Care Code 42795 Subseq Hosp Care Lvl 3 Diagnoses Pulmonary mass R91.8 Hypoxia R09.02 Hypercalcemia E83.52 Shortness of breath R06.02
[2021-02-08] MEDS ORDERED: FUROSEMIDE 10 MG in SYRINGE 0 ML IV ONE (10:15)
[2021-02-08] MEDS: POTASSIUM CHLORIDE / WTR 10 MEQ/100 ML PLCT IV SCH ×4 (10:18→13:14)
[2021-02-08] MEDS: VECURONIUM BROMIDE 10 MG VIAL IV STA ×2 (13:03→13:58)
--- NOTE | 2021-02-08 14:19 | Ultrasound Report ---
ULTRASOUND-GUIDED FINE-NEEDLE ASPIRATION OF A LEFT SUPRACLAVICULAR LYMPH NODE HISTORY: Supraclavicular Lymphnode biopsy COMPARISON: Chest CT 02/06/2021. PROCEDURE: Written informed consent was obtained from the patient's brother, Nicolás Knutson. The neck wa s prepped and draped in the usual sterile fashion. 1% lidocaine was used for local anesthesia. A tota l of 2 passes using a 25-gauge and 20-gauge needle were made through the left supraclavicular lymph node under ultrasound guidance. Specimens were given to the on-site pathologist who determined adequa te tissue for diagnosis. The patient tolerated the procedure well. There were no immediate complicati ons. IMPRESSION: Successful ultrasound-guided fine-needle aspiration of a left supra clavicular lymph node. ACT 112: Negative or not required by law. Electronically signed by: Navjot Christianson M.D. 02/08/2021 2:17 PM
[2021-02-08] MEDS: PIPERACILLIN/TAZOBACTAM 4.5 GM in DEXTROSE 5% 100 ML IV SCH ×2 (14:32→21:20)
--- NOTE | 2021-02-08 15:15 | Electrocardiogram Report ---
Test Reason : Blood Pressure : / mmHG Vent. Rate : 110 BPM Atrial Rate : 110 BPM P-R Int : 160 ms QRS Dur : 078 ms QT Int : 316 ms P-R-T Axes : 051 097 044 degrees QTc Int : 427 ms Poor data quality, interpretation may be adversely affected Sinus tachycardia Rightward axis Borderline ECG When compared with ECG of 06-FEB-2021 11:02, No significant change was found Confirmed by Mark Knox ([id number]) on 02/08/2021 3:15:10 PM Referred By: REFERRED SELF Confirmed By:Mark Knox
--- NOTE | 2021-02-08 15:26 | Electrocardiogram Report ---
Test Reason : Blood Pressure : / mmHG Vent. Rate : 082 BPM Atrial Rate : 082 BPM P-R Int : 162 ms QRS Dur : 082 ms QT Int : 388 ms P-R-T Axes : 067 089 075 degrees QTc Int : 453 ms Normal sinus rhythm Nonspecific ST abnormality Abnormal ECG When compared with ECG of 07-FEB-2021 17:45, No significant change was found Confirmed by Mark Knox ([id number]) on 02/08/2021 3:26:08 PM Referred By: REFERRED SELF Confirmed By:Mark Knox
[2021-02-08] MEDS ORDERED: IMPACT LIQD 1.0 CAL 1,000 ML BAG OG SCH (15:30)
--- NOTE | 2021-02-08 17:40 | Billing Data ---
Date of Service February 08, 2021 Coding Level of Care Code 98533 Subseq Hosp Care Lvl 1
[2021-02-08] MEDS: TUBE FEEDING WATER FLUSH OG SCH ×2 (17:46→20:15)
[2021-02-08] MEDS: MAGNESIUM OXIDE 400 MG TAB PO SCH (20:15)
[2021-02-08] MEDS: NOREPINEPHRINE/D5W 8 MG/508 ML BAG IV SCH (23:37)
[2021-02-09] MEDS: TUBE FEEDING WATER FLUSH OG SCH ×3 (00:29→07:44)
[2021-02-09] MEDS: MIDAZOLAM BOLUS FROM BAG IV PRN (01:49)
[2021-02-09] MEDS: fentaNYL citrate 100 MCG/2 ML VIAL IV PRN ×2 (02:08→05:08)
[2021-02-09] MEDS: NORMOSOL-R 1,000 ML IV SCH ×3 (02:28→19:47)
[2021-02-09] MEDS: ENOXAPARIN INJ 40 MG/0.4 ML SYR SQ SCH ×2 (02:40→15:33)
[2021-02-09 03:57] LABS: iSTAT Arterial Blood Gas HCO3 28 meg/L (19-24); iSTAT Arterial Blood Gas pCO2 43 mmHg (35-46); iSTAT Arterial Blood Gas pH 7.42 (7.35-7.45); iSTAT Arterial Blood Gas pO2 74 mmHg (80-95); iSTAT Carbon Dioxide 29 mmol/L (24-31)
[2021-02-09] MEDS: PIPERACILLIN/TAZOBACTAM 4.5 GM in DEXTROSE 5% 100 ML IV SCH (05:07)
[2021-02-09 05:41] LABS: Basophils # (auto) 0.05 K/uL (0-0.2); Basophils % (auto) 0.4 %; Eosinophils # (auto) 0.37 K/uL (0-0.5); Eosinophils % (auto) 2.7 %; Hematocrit (blood only) 35.9 % (42-52); Hemoglobin 11.7 g/dL (14.0-18.0); Immature Granulocytes # (auto) 0.06 K/uL (0.00-0.02); Immature Granulocytes % (auto) 0.4 %; Lymphocytes % (auto) 11.5 %; Mean Corpuscular Hemoglobin 34.1 pg (25-34); Mean Corpuscular Hgb Conc 32.6 g/dL (32-36); Mean Corpuscular Volume 104.7 fL (80-100); Mean Platelet Volume 10.3 fL (7.4-10.4); Monocytes # (auto) 1.26 K/uL (0.11-0.59); Monocytes % (auto) 9.1 %; Neutrophils # (auto) 10.56 K/uL (1.4-6.5); Neutrophils % (auto) 75.9 %; Platelet Count 329 K/uL (130-400); RDW Coefficient of Variation 13.1 % (11.5-14.5); RDW Standard Deviation 50.2 fL (36.4-46.3); Red Blood Count 3.43 M/uL (4.7-6.1)
[2021-02-09 06:27] LABS: BUN Creatinine Ratio 18.9 (10-20); Calcium 8.3 mg/dl (8.5-10.1); Creatinine Clr Calc Pharmacy 145.1 ml/min; Est GFR (Non-African American) 116.5 ml/min; Magnesium 2.5 mg/dl (1.8-2.4); Phosphorus 2.1 mg/dl (2.5-4.9); Potassium 3.7 mmol/L (3.5-5.1)
[2021-02-09] MEDS: MIDAZOLAM HCL 125 MG/250 ML BAG IV SCH (07:15)
--- NOTE | 2021-02-09 07:33 | Critical Care Progress Note ---
Date of Service February 09, 2021 Assessment & Plan (1) Pulmonary mass: (1) Pulmonary mass: Reason Critically Ill: 55-year-old male with acute alcohol withdraw: Delirium tremens PLAN: Neuro: Alcohol withdrawal encephalopathy improving -Transitioning from Versed infusion to phenobarbital after extubation Resp: --Right upper lobe pulmonary mass with mediastinal lymphadenopathy The patient with [id number] smoking history and 30 pound weight loss This is malignancy until proven otherwise neck Squamous cell carcinoma being high in differential followed by small cell. -Palliative care consult ordered --Acute hypoxic respiratory failure Likely secondary to underlying mass as well as COPD Continue with O2 supplementation -Intubation 02/07 extubation today --COPD Continue with Trelegy as an outpatient CV: Tachycardia resolved Fluids/Renal: Discontinue supplemental fluid calcium improved ID: Monitor fever curve -At risk for obstructive lesion GI/Nutrition: Initiate tube feeding after biopsy today Heme: History of arterial thrombus DVT prophylaxis: Lovenox Endocrine: ICU hyperglycemia protocol -Hypercalcemia: Improving Likely from underlying cancer -S/p alendronic acid Continue with IV fluids -10 mg IV Lasix x1 again and then discontinue Vascular access: Peripheral IV Code Status: Full Disposition: ICU Brother, Nicolás, providing consent (2) Hypoxia: (3) Hypercalcemia: (4) Shortness of breath: (5) Alcohol dependence: (6) Alcohol withdrawal delirium: Admission and Anticipated Discharge Date Admission Date: February 06, 2021 (2) Hypoxia: (3) Hypercalcemia: (4) Shortness of breath: (5) Alcohol withdrawal delirium: Admission and Anticipated Discharge Date Admission Date: February 06, 2021 Supervising Physician Co-Signing Physician Notes Patient was discussed in multidisciplinary rounds. I have personally spent 40 minutes of critical care time in the direct management of this patient. This is a life/limb threatening event. This includes time spent evaluating patient, direct bedside care, chart review, placing orders, interpretation of diagnostic studies, discussion with consultants, patient, and/or family members regarding treatment decisions, as well as other required patient management activities. This time is exclusive of all separately billable procedures, and teaching time and separate from and in addition to any other critical care service time. Subjective No overnight events, fine-needle aspiration of supraclavicular lymph node completed yesterday Review of Systems Review of Systems: Unobtainable due to endotracheal tube Physical Exam Physical Exam: General: Easily agitated Skin: Warm, dry Head: Atraumatic Ears, nose, mouth and throat: Airway obscured by endotracheal tube Cardiovascular: Normal peripheral perfusion Respiratory: Ventilator settings reviewed Gastrointestinal: Non distended Musculoskeletal: No deformity Results & Data Results & Data ([facility]) Vital Signs (Past 12 Hours) Vital Signs Temp Pulse Resp BP Pulse Ox 02/09/21 06:30 87 88/61 L 97 02/09/21 05:26 78 90/68 L 95 02/09/21 04:26 37.0 C 87 103/65 94 02/09/21 03:41 79 19 96 02/09/21 03:26 89 92/64 L 96 02/09/21 02:26 80 89/62 L 95 02/09/21 01:26 85 104/68 97 02/09/21 00:26 37.3 C 79 94/66 L 97 02/09/21 00:01 77 16 96 02/08/21 23:26 84 91/64 L 96 02/08/21 22:26 87 102/65 96 02/08/21 21:19 99 H 100/62 95 02/08/21 21:02 99 H 95/62 L 96 02/08/21 20:33 37.9 C H 100 H 120/70 96 02/08/21 20:14 86 16 95 Laboratory Results 02/09/21 02/09/21 02/09/21 Range/Units 05:20 05:20 03:41 WBC 13.90 H (4.8-10.8) K/uL RBC 3.43 L (4.7-6.1) M/uL Hgb 11.7 L (14.0-18.0) g/dL Hct 35.9 L (42-52) % MCV 104.7 H (80-100) fL MCH 34.1 H (25-34) pg MCHC 32.6 (32-36) g/dL RDW Std Deviation 50.2 H (36.4-46.3) fL RDW Coeff of [place] 13.1 (11.5-14.5) % Plt Count 329 (130-400) K/uL MPV 10.3 (7.4-10.4) fL Immature Gran % (Auto) 0.4 % Neut % (Auto) 75.9 % Lymph % (Auto) 11.5 % Tyler % (Auto) 9.1 % Eos % (Auto) 2.7 % Baso % (Auto) 0.4 % Neut # (Auto) 10.56 H (1.4-6.5) K/uL Lymph # (Auto) 1.60 (1.2-3.4) K/uL Tyler # (Auto) 1.26 H (0.11-0.59) K/uL Eos # (Auto) 0.37 (0-0.5) K/uL Baso # (Auto) 0.05 (0-0.2) K/uL Immature Gran # (Auto) 0.06 H (0.00-0.02) K/uL POC pH 7.42 (7.35-7.45) POC pCO2 43 (35-46) mmHg POC pO2 74 L (80-95) mmHg POC HCO3 28 H (19-24) tessy/L POC Total CO2 29 (24-31) mmol/L POC Base Excess 4.0 H (-9-1.8) tessy/L POC ABG O2 Sat 95.0 (90-95) % Sodium 136 (136-145) mmol/L Potassium 3.7 (3.5-5.1) mmol/L Chloride 102 (98-107) mmol/L Carbon Dioxide 29 (21-32) mmol/L Anion Gap 5.0 (3-11) BUN 10 (7-18) mg/dl Creatinine 0.55 L (0.6-1.4) mg/dl Est Cr Clr Drug Dosing 145.1 ml/min Est GFR ( Amer) 135.0 ml/min Est GFR (Non-Af Amer) 116.5 ml/min BUN/Creatinine Ratio 18.9 (10-20) Glucose 136 H (70-99) mg/dl POC Glucose (70-99) mg/dl Calcium 8.3 L D (8.5-10.1) mg/dl Phosphorus 2.1 L D (2.5-4.9) mg/dl Magnesium 2.5 H (1.8-2.4) mg/dl 02/08/21 02/08/21 Range/Units 23:47 18:00 WBC (4.8-10.8) K/uL RBC (4.7-6.1) M/uL Hgb (14.0-18.0) g/dL Hct (42-52) % MCV (80-100) fL MCH (25-34) pg MCHC (32-36) g/dL RDW Std Deviation (36.4-46.3) fL RDW Coeff of [place] (11.5-14.5) % Plt Count (130-400) K/uL MPV (7.4-10.4) fL Immature Gran % (Auto) % Neut % (Auto) % Lymph % (Auto) % Tyler % (Auto) % Eos % (Auto) % Baso % (Auto) % Neut # (Auto) (1.4-6.5) K/uL Lymph # (Auto) (1.2-3.4) K/uL Tyler # (Auto) (0.11-0.59) K/uL Eos # (Auto) (0-0.5) K/uL Baso # (Auto) (0-0.2) K/uL Immature Gran # (Auto) (0.00-0.02) K/uL POC pH (7.35-7.45) POC pCO2 (35-46) mmHg POC pO2 (80-95) mmHg POC HCO3 (19-24) tessy/L POC Total CO2 (24-31) mmol/L POC Base Excess (-9-1.8) tessy/L POC ABG O2 Sat (90-95) % Sodium (136-145) mmol/L Potassium (3.5-5.1) mmol/L Chloride (98-107) mmol/L Carbon Dioxide (21-32) mmol/L Anion Gap (3-11) BUN (7-18) mg/dl Creatinine (0.6-1.4) mg/dl Est Cr Clr Drug Dosing ml/min Est GFR ( Amer) ml/min Est GFR (Non-Af Amer) ml/min BUN/Creatinine Ratio (10-20) Glucose (70-99) mg/dl POC Glucose 129 H 112 H (70-99) mg/dl Calcium (8.5-10.1) mg/dl Phosphorus (2.5-4.9) mg/dl Magnesium (1.8-2.4) mg/dl Coding Level of Care Code Critical Care 1st 30-74 mins Diagnoses Pulmonary mass R91.8 Hypoxia R09.02 Hypercalcemia E83.52 Shortness of breath R06.02 Alcohol withdrawal delirium F10.231
[2021-02-09] MEDS: ALBUT/IPRATROP 3MG/0.5MG NEB 3 ML VIAL NEB SCH (07:48)
--- NOTE | 2021-02-09 08:12 | Hospitalist Progress Note ---
Date of Service February 09, 2021 Assessment & Plan (1) Alcohol withdrawal delirium: Mario Verduzco is a 55-year-old male with past medical history of COPD, hypertension, hyperlipidemia, coronary artery disease, and [id number] smoking history; who presented to the hospital for evaluation and endobronchial ultrasound. Subsequently had worsening of condition given alcohol history and developed acute alcohol withdrawal Alcohol withdrawal delirium: -Intubated and sedated in the ICU -Continue management per ICU provider -Maintain sedation per ICU -Once stable for transfer out of ICU will resume care Pulmonary mass: -CT lung from 02/05 demonstrating pathologic mediastinal hilar and right axillary lymphadenopathy, suspected central pulmonary mass with obstruction of the right upper lobe bronchus, multiple bilateral pulmonary nodules -MRI brain concerning for 3 mm focus of subcortical enhancement within the left frontal lobe, and 12 mm lesion within the right frontoparietal calvarium, and 6 mm lesion within the right lateral orbital process -Findings and imaging concerning for metastatic pulmonary cancer currently undifferentiated -EBUS procedure on hold at this time -Pulmonology consulted: Appreciate continued recommendations CODE STATUS: Full code (2) Pulmonary mass: Admission and Anticipated Discharge Date Admission Date: February 06, 2021 Supervising Physician Co-Signing Physician Notes I personally examined the patient and verified all guan points of history and exam, discussed case, and agree with decision making with Dr Corral Extubated but sleeping comfortably. No new problems identified. Vitals noted, in general he is intubated sedated no distress. Breathing unlabored no accessory muscle use good effort.. No focal neuro deficits at rest. lung mass - almost certainly malignant. EBUS done, MRI brain concerning. Ongoing pulmonary work-up. EtOH withdrawal - ICU careis showing improvement, and as much is that he is now extubated. otherwise as above Subjective History Limited by : Mechanical ventilation with sedation. No acute events reported overnight. Currently this morning on pressor management with Levaphed. Review of Systems Review of Systems: Unobtainable due to endotracheal tube and Unobtainable due to reduced consciousness Physical Exam Constitutional: + ill appearing and comfortable ENMT: ET tube Respiratory: no respiratory distress Auscultation: no diminished lung sounds, no rales and no rhonchi Cardiovascular: Rate/Rhythm: regular rate and regular rhythm Extremities: no edema Gastrointestinal (Abdomen): Inspection/Auscultation: normal bowel sounds Percussion/Palpation: abdomen soft Skin: no rashes, warm and dry Results & Data Results & Data ([facility]) Vital Signs (Past 12 Hours) Vital Signs Temp Pulse Resp BP Pulse Ox 02/09/21 06:30 87 88/61 L 97 02/09/21 05:26 78 90/68 L 95 02/09/21 04:26 37.0 C 87 103/65 94 02/09/21 03:41 79 19 96 02/09/21 03:26 89 92/64 L 96 02/09/21 02:26 80 89/62 L 95 02/09/21 01:26 85 104/68 97 02/09/21 00:26 37.3 C 79 94/66 L 97 02/09/21 00:01 77 16 96 02/08/21 23:26 84 91/64 L 96 02/08/21 22:26 87 102/65 96 02/08/21 21:19 99 H 100/62 95 02/08/21 21:02 99 H 95/62 L 96 02/08/21 20:33 37.9 C H 100 H 120/70 96 02/08/21 20:14 86 16 95 Resident Activity Tracking Resident Involvement: Resident Care Provided Care Provided: Adult Hospital Medicine
[2021-02-09] MEDS ORDERED: PHENobarbital sodium 65 MG/ML VIAL IM ONE (08:17)
--- NOTE | 2021-02-09 08:33 | XRay Report ---
XR chest 1V portable HISTORY: intubation COMPARISON: Chest 02/08/2021. FINDINGS: The endotracheal tube terminates 3.6 cm from the mariam. Nasogastric tube terminates below the diaphragm. Near-complete opacification of the right hemithorax has progressed. There are patchy l eft basilar densities and diffuse interstitial thickening within the left lung, unchanged. No pneumot horax. IMPRESSION: 1. Satisfactory support line placement. 2. Near complete opacification of the right hemithorax which has progressed. 3. No change in the patchy left basilar densities at the left lung base. ACT 112: Negative or not required by law. Electronically signed by: Navjot Christianson M.D. 02/09/2021 8:31 AM
[2021-02-09] MEDS ORDERED: FUROSEMIDE 10 MG in SYRINGE 0 ML IV ONE (08:45)
--- NOTE | 2021-02-09 09:08 | Pulmonology Progress Note ---
Date of Service February 09, 2021 Assessment & Plan (1) Pulmonary mass: CT chest 02/06/2021 : Right upper lobe mass with collapse of the right upper lobe. Multiple nodules are appreciated on the opposite side. Significant mediastinal lymphadenopathy at station 4R right hilar as well as subcarinal --Right upper lobe pulmonary mass with mediastinal lymphadenopathy The patient with [id number] smoking history and 30 pound weight loss This is malignancy until proven otherwise neck Squamous cell carcinoma being high in differential followed by small cell. S/p supraclavicular lymph node biopsy 02/01/21. --Acute hypoxic respiratory failure Likely secondary to underlying mass as well as COPD Continue with O2 supplementation --COPD Continue with Trelegy as an outpatient -Hypercalcemia Likely from underlying cancer --> improved -S/p zalendronic acid, improving Continue with IV fluids Care as per primary team --DTs requiring ventilator support Extubated 02/09/21 Plan: S/p IR guided supraclavicular lymph node biopsy 02/09/21. Await cytopathology Overall prognosis of the patient is very poor given high likelihood of metastases even in the brain. Palliative consult should be thought off. I did have discussion regarding the poor prognosis with patient's partner was present even at the time of the office visit with me. All questions queries of her were answered in depth. Please note the above document was generated using voice recognition software. It may contain grammatical, syntax or spelling errors.Any formal questions or concerns about the content, text or information contained within the body of this dictation should be directly addressed to the provider for clarification. (2) Hypoxia: (3) Hypercalcemia: (4) Shortness of breath: Admission and Anticipated Discharge Date Admission Date: February 06, 2021 Subjective Patient seen and examined at bedside. Patient was extubated earlier today. He still on low-dose Levophed. Still somnolent. Review of Systems Review of Systems: Unobtainable due to reduced consciousness Physical Exam Physical Exam: Constitutional: No acute distress HEENT: PERRLA Respiratory system: Decreased air entry bilaterally, more decreased on the right side, positive crackles bilateral lower lobes, no wheeze, no rhonchi CVS: S1-S2 positive, no murmurs or gallops, tachycardia Abdomen: Soft, nontender, nondistended, positive bowel sounds x4 Extremities: +2 pulses bilaterally radialis, no cyanosis, no edema, minimal clubbing Neuro:GCS 10, withdrawing to pain Psych: Unable to assess G/U: Positive Jay Skin: no rashes, warm and dry Lymphatic: + lymphadenopathy (Positive right supraclavicular lymph node appreciated) Results & Data Results & Data ([facility]) Vital Signs (Past 12 Hours) Vital Signs Temp Pulse Resp BP Pulse Ox 02/09/21 07:43 86 28 H 93 02/09/21 06:30 87 88/61 L 97 02/09/21 05:26 78 90/68 L 95 02/09/21 04:26 37.0 C 87 103/65 94 02/09/21 03:41 79 19 96 02/09/21 03:26 89 92/64 L 96 02/09/21 02:26 80 89/62 L 95 02/09/21 01:26 85 104/68 97 02/09/21 00:26 37.3 C 79 94/66 L 97 02/09/21 00:01 77 16 96 02/08/21 23:26 84 91/64 L 96 02/08/21 22:26 87 102/65 96 02/08/21 21:19 99 H 100/62 95 02/09/21 05:20 02/09/21 05:20 PG Care Time/CCT Total # of Minutes Spent Total Time Spent with Patient: Total time spent is greater than 50% in coordination of care (as documented) at patient's floor/unit and/or counseling patient: Coding Level of Care Code 08650 Subseq Hosp Care Lvl 3 Diagnoses Pulmonary mass R91.8 Hypoxia R09.02 Hypercalcemia E83.52 Shortness of breath R06.02
[2021-02-09] MEDS: DOCUSATE SODIUM SYRUP 100 MG/10 ML UDC PO SCH ×2 (09:44→19:34)
[2021-02-09] MEDS: FOLIC ACID 1 MG TAB PO SCH (09:44)
[2021-02-09] MEDS: THIAMINE HCL 100 MG TAB PO SCH (09:44)
[2021-02-09] MEDS ORDERED: POTASSIUM PHOSPHATE 18 MMOL in SODIUM CHLORIDE 0.9% 500 ML IV ONE (10:00)
[2021-02-09] MEDS: PHENobarbital sodium 65 MG/ML VIAL IM SCH ×2 (12:33→15:37)
--- NOTE | 2021-02-09 15:58 | Palliative Care Consultation ---
Date of Consultation February 09, 2021 Assessment & Plan (1) Pulmonary mass: (2) Palliative care encounter: I spoke with Mario's brother, Nicolás, on the phone. He also has a sister and his mother is living at age 84. He has a significant other who he has had a relationship with for twenty years but has this has been turbulent and Nicolás says that she moved out a few months ago. He understands that Mario's condition is grave and the he has been extubated. We discussed pathology results con firming cancer. Nicolás understands that he is going to and tells me that he would want us to do everything we can for him. When I asked him to tell me more about that he said that he would want us to keep him comfortable but he would not want to "pull the plug" on him. We discussed that the ventilator tube has been removed but if his condition declined and we had to reintubate, Nicolás would almost certainly have to make the agonizing decision of withdrawing the ventilator support. He understands this and realizes that at that point, Mario's would be inevitable. He is agreeable to DNR/DNI but would want to continue any other medical treatment or support at this time. Palliative care will follow. History of Present Illness Reason for Consultation: goals of care Requesting Physician: Dr. Skelton Attending Physician: Marcin Cochran DO History of Present Illness 55 yo gentleman with 120 pack year history of smoking who presented with weakness, shortness of breath, hypercalcemia and 30lb weight loss. He was found to have right upper lobe mass on CT with mediastinal lymphadenopathy. Biopsy shows squamous cell carcinoma. Imaging indicates likely metastatic disease in brain, liver and bone with near total white out of right hemithorax. He also has COPD. He was intubated with delirium tremens. Per his brother, he drinks a half gallon of vodka daily. He has been extubated and is in ICU. Currently he is being weaned from sedation with midazolam. He does open his eyes when his name is called and shakes his head no when asked if he's having pain but also has facial grimace. Allergies Allergy/AdvReac Type Severity Reaction Status Date / Time No Known Drug Allergies Allergy Verified 02/06/21 14:02 Home Medications Medication Instructions Recorded Confirmed Type cholecalciferol (vitamin D3) 1,250 50,000 unit PO WEEKLY 42 Days #6 01/19/21 02/06/21 Rx mcg (50,000 unit) capsule cap albuterol sulfate 90 mcg/actuation 2 puff INHALATION Q6H PRN #18 g 02/06/21 02/06/21 Rx aerosol inhaler [id number] 1 inh INHALATION QAM 02/06/21 02/06/21 History [Trelegy Ellipta] vitamin B complex-folic acid [B 1 tab PO QAM 02/06/21 02/06/21 History Complex 1 (with folic acid)] Patient History Medical History Abdominal pain, RUQ (right upper quadrant) ACS (acute coronary syndrome) June 2010 100 percent RCA occlusion underwent thrombectomy Acute costochondritis Acute respiratory infection Alcohol abuse Arterial occlusion, lower extremity (~01/2021) 100% LT SFA occlusion from ostium with flow reconstitution and prox Pop A Conjunctivitis Constipation Coronary artery vasospasm Depressive disorder, not elsewhere classified (01/15/13) Dyspnea on exertion Elevated ferritin Elevated random blood glucose level Esophageal reflux Fall Foot fracture Fracture of metatarsal bone Fracture of metatarsal bone Gallbladder polyp Hepatic steatosis Hyperlipidemia Hypertension Hypokalemia Infer AMI NEC, init episd (01/15/13) Lung consolidation Multiple rib fractures Osteopenia determined by x-ray Proteinuria Pulmonary mass (02/05/21) IMPRESSION: 1. Pathologic mediastinal hilar and right axillary lymphadenopathy. 2. Suspected central pulmonary mass with obstruction of the right upper lobe bronchus 3. Multiple bilateral pulmonary nodules. Metastatic disease is the diagnosis of exclusion. Recurrent epistaxis Thrombocytosis Tobacco use disorder (01/15/13) Surgical History H/O coronary angiogram Family History Family/Other Alcohol abuse Mother Depression Father Alcohol abuse Depression Denies family history of Ovarian cancer Prostate cancer Myocardial infarction Colorectal cancer Social History Smoking Status: Current every day smoker Tobacco Type: Cigarettes Age Started Using Tobacco: 14; packs per day: 2; Second Hand Exposure: Yes; Hx Alcohol Use: Yes Hx Substance Use: No Preferred Language: Croatian Communication Ability: Unable Visual Impairment: No Limitations Hearing Ability: Normal Toll Booth Operator Required: No Beliefs That Will Affect Care: None marital status: Current Living Situation: Significant Other Current Living Situation Comment: lives with girlfriend current occupational status: unemployed Feels Safe at Home: Yes caffeine: Yes during the past year weight has: decreased > 10 lbs Dental Care, Regularly: No Physical Activity Frequency: Does not Exercise Seatbelt Use: never Sunscreen Use: No Assistive Devices: Oxygen - Continuous Review of Systems Review of Systems: Unobtainable due to reduced consciousness [place] Symptom Assessment Scale PainAD 09/17 Dyspnea by observation 09/17 Palliative Performance Score 20% Physical Exam Constitutional: + ill appearing and + lethargic Respiratory: + uses accessory muscles high flow O2 Cardiovascular: Rate/Rhythm: regular rate and regular rhythm Gastrointestinal (Abdomen): Inspection/Auscultation: + abdomen distended Musculoskeletal: Extremities: + muscle atrophy Neurologic: + not awake Results & Data ([facility]) Vital Signs (Past 12 Hours) Vital Signs Temp Pulse Resp BP Pulse Ox 02/09/21 09:27 96 H 98/66 L 91 02/09/21 09:11 95 H 89/56 L 95 02/09/21 09:00 93 H 96 02/09/21 08:56 93 H 85/57 L 95 02/09/21 08:41 94 H 88/58 L 93 02/09/21 08:34 94 H 36 H 86/57 L 93 02/09/21 08:32 91 H 35 H 109/69 93 02/09/21 08:26 88 105/72 95 02/09/21 08:01 88 92 02/09/21 07:43 86 28 H 93 02/09/21 07:26 86 98/66 L 95 02/09/21 07:01 80 97 02/09/21 06:32 80 95 02/09/21 06:30 87 88/61 L 97 02/09/21 05:26 78 90/68 L 95 02/09/21 04:26 98.6 F 87 103/65 94 PG Care Time/CCT Total # of Minutes Spent Total Time Spent with Patient: Total time spent is greater than 50% in coordination of care (as documented) at patient's floor/unit and/or counseling patient: total time spent 65 minutes with more than 50% of time spent on goals of care, prognosis, family education and support Coding Level of Care Code 68442 Initial Inpt Care Lvl 3 Diagnoses Pulmonary mass R91.8 Palliative care encounter Z51.5
--- NOTE | 2021-02-09 18:47 | Billing Data ---
Date of Service February 09, 2021 Coding Level of Care Code 83016 Subseq Hosp Care Lvl 1
[2021-02-09] MEDS: MAGNESIUM OXIDE 400 MG TAB PO SCH (19:34)
[2021-02-09] MEDS: ALBUT/IPRATROP 3MG/0.5MG NEB 3 ML VIAL NEB PRN (20:48)
[2021-02-10] MEDS: ENOXAPARIN INJ 40 MG/0.4 ML SYR SQ SCH ×2 (01:52→14:35)
[2021-02-10 05:22] LABS: Basophils # (auto) 0.07 K/uL (0-0.2); Basophils % (auto) 0.6 %; Eosinophils # (auto) 0.14 K/uL (0-0.5); Eosinophils % (auto) 1.1 %; Hematocrit (blood only) 40.2 % (42-52); Immature Granulocytes # (auto) 0.08 K/uL (0.00-0.02); Immature Granulocytes % (auto) 0.6 %; Lymphocytes # (auto) 1.67 K/uL (1.2-3.4); Lymphocytes % (auto) 13.1 %; Mean Corpuscular Hemoglobin 33.6 pg (25-34); Mean Corpuscular Hgb Conc 32.3 g/dL (32-36); Mean Corpuscular Volume 103.9 fL (80-100); Mean Platelet Volume 10.6 fL (7.4-10.4); Monocytes # (auto) 1.17 K/uL (0.11-0.59); Monocytes % (auto) 9.2 %; Neutrophils # (auto) 9.57 K/uL (1.4-6.5); Neutrophils % (auto) 75.4 %; Platelet Count 357 K/uL (130-400); RDW Standard Deviation 49.4 fL (36.4-46.3); Red Blood Count 3.87 M/uL (4.7-6.1)
[2021-02-10 05:48] LABS: Blood Urea Nitrogen 8 mg/dl (7-18); Calcium 8.2 mg/dl (8.5-10.1); Carbon Dioxide 30 mmol/L (21-32); Chloride 103 mmol/L (98-107); Creatinine Clr Calc Pharmacy 204.6 ml/min; Est GFR (African American) > 150.0 ml/min; Est GFR (Non-African American) 134.2 ml/min; Glucose 69 mg/dl (70-99); Magnesium 2.3 mg/dl (1.8-2.4); Potassium 3.8 mmol/L (3.5-5.1); Sodium 138 mmol/L (136-145)
[2021-02-10 05:50] LABS: Phosphorus 2.5 mg/dl (2.5-4.9)
[2021-02-10] MEDS: PHENobarbital sodium 65 MG/ML VIAL IV PRN ×2 (07:32→22:24)
--- NOTE | 2021-02-10 08:04 | Critical Care Progress Note ---
Date of Service February 10, 2021 Assessment & Plan (1) Alcohol withdrawal delirium: Reason Critically Ill: 55-year-old male with acute alcohol withdraw: Delirium tremens PLAN: Neuro: Alcohol withdrawal encephalopathy improving -Transitioning from Versed infusion to phenobarbital after extubation Resp: --Metastatic squamous cell carcinoma --Right upper lobe pulmonary mass with mediastinal lymphadenopathy -Palliative care consult reviewed --Acute hypoxic respiratory failure Likely secondary to underlying mass as well as COPD Continue with O2 supplementation -Intubation 02/07 extubation 02/09 --COPD Continue with Trelegy as an outpatient CV: Tachycardia: Propranolol 10 mg twice daily Fluids/Renal: Lasix 10 mg x 1 ID: Monitor fever curve GI/Nutrition: Tolerating tube feeds Heme: History of arterial thrombus DVT prophylaxis: Lovenox Endocrine: ICU hyperglycemia protocol -Hypercalcemia: Resolved Likely from underlying cancer -S/p alendronic acid Vascular access: Peripheral IV Code Status: DNR/DNI Disposition: ICU Admission and Anticipated Discharge Date Admission Date: February 06, 2021 Supervising Physician Co-Signing Physician Notes Case was discussed with bedside nursing staff I have personally spent 40 minutes of critical care time in the direct management of this patient. This is a life/limb threatening event. This includes time spent evaluating patient, direct bedside care, chart review, placing orders, interpretation of diagnostic studies, discussion with consultants, patient, and/or family members regarding treatment decisions, as well as other required patient management activities. This time is exclusive of all separately billable procedures, and teaching time and separate from and in addition to any other critical care service time. Subjective No overnight events, was seen in conjunction with palliative care and transition to DNR/DNI in event of cardiac arrest. Patient requiring nasotracheal suctioning for upper airway secretions Review of Systems Review of Systems: Unobtainable due to cognitive status Physical Exam Physical Exam: General: Easily agitated, RASS +1 Skin: Warm, dry Head: Atraumatic Ears, nose, mouth and throat: Makings audible sounds Cardiovascular: Normal peripheral perfusion Respiratory: Coarse sounds bilaterally Gastrointestinal: Non distended Musculoskeletal: No deformity Results & Data Results & Data ([facility]) Vital Signs (Past 12 Hours) Vital Signs Temp Pulse Pulse Resp BP Pulse Ox 02/10/21 06:11 112 H 120/77 91 02/10/21 05:11 113 H 118/75 89 L 02/10/21 04:11 37.4 C 113 H 122/71 92 02/10/21 03:11 107 H 106/71 91 02/10/21 02:11 107 H 116/70 93 02/10/21 01:11 99 H 101/67 93 02/10/21 00:11 37.6 C H 101 H 103/66 92 02/09/21 23:11 104 H 107/66 93 02/09/21 22:11 106 H 102/64 96 02/09/21 21:26 109 H 103/66 95 02/09/21 21:11 108 H 104/65 96 02/09/21 20:48 110 H 24 87 L 02/09/21 20:26 106 H 103/63 93 02/09/21 20:11 37.8 C H 106 H 100/66 92 Coding Level of Care Code Critical Care 1st 30-74 mins Diagnoses Alcohol withdrawal delirium F10.231
[2021-02-10] MEDS ORDERED: FUROSEMIDE 10 MG in SYRINGE 0 ML IV SCH (08:30)
--- NOTE | 2021-02-10 09:17 | XRay Report ---
XR chest 1V portable CLINICAL HISTORY: intubation COMPARISON STUDY: Chest radiograph February 09, 2021. FINDINGS: Endotracheal tube has been removed. There is no pneumothorax. Dense right upper lobe airspa ce opacity persists. Near complete opacification the right hemithorax has slightly progressed. Left l bridger interstitial thickening has slightly increased. Pulmonary nodules within the left lung are better depicted on chest CT. IMPRESSION: 1. Interval removal of the endotracheal tube. 2. Near complete opacification of the right hemithorax, slightly increased since prior exam. Persiste nt dense right upper lobe opacity. 3. Slight increase in left lung interstitial thickening. ACT 112: Negative or not required by law. Electronically signed by: Elgin Herr M.D. 02/10/2021 9:15 AM
[2021-02-10] MEDS: NORMOSOL-R 1,000 ML IV SCH ×2 (09:25→21:47)
--- NOTE | 2021-02-10 10:09 | Hospitalist Progress Note ---
Date of Service February 10, 2021 Assessment & Plan (1) Alcohol withdrawal delirium: Mario Verduzco is a 55-year-old male with past medical history of COPD, hypertension, hyperlipidemia, coronary artery disease, and [id number] smoking history; who presented to the hospital for evaluation and endobronchial ultrasound. Subsequently had worsening of condition given alcohol history and developed acute alcohol withdrawal and delirium tremens Pulmonary mass: -CT lung from 02/05 demonstrating pathologic mediastinal hilar and right axillary lymphadenopathy, suspected central pulmonary mass with obstruction of the right upper lobe bronchus, multiple bilateral pulmonary nodules -MRI brain concerning for 3 mm focus of subcortical enhancement within the left frontal lobe, and 12 mm lesion within the right frontoparietal calvarium, and 6 mm lesion within the right lateral orbital process -EBUS biopsy showing squamous cell carcinoma -Findings and imaging concerning for metastatic SCC Alcohol withdrawal delirium tremens: -Intubated and sedated in the ICU and was able to be extubated 02/09, still struggling with increased work of breathing and altered mental status - Per Palliative care's discussion patient would be DNI in event of cardiac arrest only, will clarify wishes with family -Continue management per ICU provider; phenobarbital for alcohol withdrawal. CODE STATUS: DNR/DNI (2) Pulmonary mass: Admission and Anticipated Discharge Date Admission Date: February 06, 2021 Supervising Physician Co-Signing Physician Notes I personally examined the patient and verified all guan points of history and exam, discussed case, and agree with decision making with Dr Proctor Appears to be fairly sedated. No new HPI review of systems. Dr. Proctor was able to try to have some degree of conversation with the patient earlier when he was more awake, although he notes it was not clear how much the patient can truly comprehend. Vitals noted, sedate, rhonchorous respirations throughout, although relatively good air entry. No focal neuro deficits at rest. Skin without rashes, pallor, icterus. lung mass -squamous cell carcinoma, MRI brain concerning for metastatic disease. Palliative has been consulted, although should the patient's functional status be better, it might be still of benefit to him to discuss with oncology in the future before fully deciding on treatment options EtOH withdrawal - ICU care ongoing otherwise as above Subjective Mario is still having difficulty communicating, he is able to shake his head no when I ask him if he's feeling any pain or discomfort and follows one step instructions and tried to talk but I unfortunately cannot comprehend what he is saying. I did share with him what we believe is happening and that his lung mass was found to be squamous cell carcinoma. Review of Systems Review of Systems: Unobtainable Physical Exam Physical Exam: Constitutional: Somnolent 55 year old man in mild respiratory distress with abdominal breathing and tachypnea, unable to communicated and participate fully with exam. Eyes: PERRL, conjunctivae normal, anicteric sclerae ENMT: external ear and nose normal, oropharynx normal Respiratory: + labored breathing; + abnormal respiratory effort (abdominal breathing, accessory muscle use and tachypneic) and + not able to speak in complete sentence Auscultation: + crackles, + wheezes and + bronchovesicular breath sounds Cardiovascular: Rate/Rhythm: regular rhythm and + tachycardic Heart Sounds: no click, no gallop and no murmur Vessels: no JVD Extremities: no edema Gastrointestinal (Abdomen): Percussion/Palpation: abdomen soft; abdomen nontender Skin: no rashes, warm and dry Results & Data Results & Data ([facility]) Vital Signs (Past 12 Hours) Vital Signs Temp Pulse BP Pulse Ox 02/10/21 08:00 111 H 02/10/21 06:11 112 H 120/77 91 02/10/21 05:11 113 H 118/75 89 L 02/10/21 04:11 37.4 C 113 H 122/71 92 02/10/21 03:11 107 H 106/71 91 02/10/21 02:11 107 H 116/70 93 02/10/21 01:11 99 H 101/67 93 02/10/21 00:11 37.6 C H 101 H 103/66 92 02/09/21 23:11 104 H 107/66 93 02/09/21 22:11 106 H 102/64 96 Resident Activity Tracking Resident Involvement: Resident Care Provided Care Provided: Adult Hospital Medicine
[2021-02-10] MEDS: ALBUT/IPRATROP 3MG/0.5MG NEB 3 ML VIAL NEB PRN ×2 (11:18→20:49)
--- NOTE | 2021-02-10 11:43 | XRay Report ---
KUB CLINICAL HISTORY: New NG Tube placed COMPARISON STUDY: CT of the abdomen and pelvis February 06, 2021. FINDINGS: Tip of feeding tube is within the mid body of the stomach. Visualized bowel gas pattern is normal. Extensive right lung airspace opacity is noted with dense opacity within the right upper lobe . Note is also made of bibasilar opacities and interstitial thickening. IMPRESSION: Tip of feeding tube within the body of the stomach. ACT 112: Negative or not required by law. Electronically signed by: Elgin Herr M.D. 02/10/2021 11:41 AM
[2021-02-10] MEDS: THIAMINE HCL 100 MG TAB PO SCH (11:52)
[2021-02-10] MEDS: FOLIC ACID 1 MG TAB PO SCH (11:52)
[2021-02-10] MEDS: PROPRANOLOL HCL 10 MG TAB PO SCH ×2 (11:53→20:36)
[2021-02-10] MEDS: DOCUSATE SODIUM SYRUP 100 MG/10 ML UDC PO SCH ×2 (11:53→20:36)
--- NOTE | 2021-02-10 13:28 | Pulmonology Progress Note ---
Date of Service February 10, 2021 Assessment & Plan (1) Pulmonary mass: CT chest 02/06/2021 : Right upper lobe mass with collapse of the right upper lobe. Multiple nodules are appreciated on the opposite side. Significant mediastinal lymphadenopathy at station 4R right hilar as well as subcarinal --Right upper lobe pulmonary mass with mediastinal lymphadenopathy --> squamous cell carcinoma of the lung The patient with [id number] smoking history and 30 pound weight loss Stage IV S/p supraclavicular lymph node biopsy 02/01/21. --Acute hypoxic respiratory failure Likely secondary to underlying mass as well as COPD Continue with O2 supplementation --COPD Continue with Trelegy as an outpatient -S/p hypercalcemia Likely from underlying cancer --> improved -S/p zalendronic acid, improving Continue with IV fluids Care as per primary team --DTs requiring ventilator support Extubated 02/09/21 --DNR/DNI Plan: Cytology of the supraclavicular lymph node biopsy did show metastatic squamous cell carcinoma. Chest x-ray from today shows worsening of the right lower lobe infiltrate. Patient is likely aspirating. Aggressive suctioning as per the ICU. Consideration for Lasix should be thought. Recommend keeping the patient on the left side if possible. Palliative care already on board. Overall prognosis is very poor. Please note the above document was generated using voice recognition software. It may contain grammatical, syntax or spelling errors.Any formal questions or concerns about the content, text or information contained within the body of this dictation should be directly addressed to the provider for clarification. (2) Hypoxia: (3) Hypercalcemia: (4) Shortness of breath: Admission and Anticipated Discharge Date Admission Date: February 06, 2021 Subjective Patient seen and examined at bedside. Patient is still somnolent. He does open his eyes and tracks but does not follow any significant months. He was able to move his legs on command. Unable to get more information from him. Review of Systems Review of Systems: Unobtainable due to mental health condition Physical Exam Physical Exam: Constitutional: Mild respiratory distress HEENT: PERRLA Respiratory system: Decreased air entry bilaterally, more decreased on the right side, positive crackles bilateral lower lobes, no wheeze, no rhonchi CVS: S1-S2 positive, no murmurs or gallops, tachycardia Abdomen: Soft, nontender, nondistended, positive bowel sounds x4 Extremities: +2 pulses bilaterally radialis, no cyanosis, no edema, minimal clubbing Neuro:GCS 10, following some commands Psych: Unable to assess G/U: Positive Jay Skin: no rashes, warm and dry Lymphatic: + lymphadenopathy (Positive right supraclavicular lymph node appreciated) Results & Data Results & Data ([facility]) Vital Signs (Past 12 Hours) Vital Signs Temp Pulse Pulse Resp BP Pulse Ox 02/10/21 12:00 38.0 C H 02/10/21 11:30 115 H 130/93 93 02/10/21 11:25 114 H 32 H 93 02/10/21 11:11 120 H 139/98 83 L 02/10/21 10:11 115 H 132/79 88 L 02/10/21 10:00 114 H 88 L 02/10/21 09:11 110 H 106/71 91 02/10/21 09:00 112 H 91 02/10/21 08:11 114 H 118/74 89 L 02/10/21 08:00 37.8 C H 112 H 90 02/10/21 07:11 116 H 127/75 89 L 02/10/21 07:01 115 H 87 L 02/10/21 06:12 110 H 91 02/10/21 06:11 112 H 120/77 91 02/10/21 05:11 113 H 118/75 89 L 02/10/21 04:11 37.4 C 113 H 122/71 92 02/10/21 03:11 107 H 106/71 91 02/10/21 02:11 107 H 116/70 93 02/10/21 04:46 02/10/21 04:46 PG Care Time/CCT Total # of Minutes Spent Total Time Spent with Patient: Total time spent is greater than 50% in coordination of care (as documented) at patient's floor/unit and/or counseling patient: Coding Level of Care Code 24384 Subseq Hosp Care Lvl 3 Diagnoses Pulmonary mass R91.8 Hypoxia R09.02 Hypercalcemia E83.52 Shortness of breath R06.02
[2021-02-10] MEDS: ACETAMINOPHEN SUSP 325 MG/10.15 ML UDC PO PRN (15:11)
[2021-02-10] MEDS ORDERED: PIPERACILLIN/TAZOBACTAM 4.5 GM in DEXTROSE 5% 100 ML IV ONE (16:56)
[2021-02-10] MEDS ORDERED: PIPERACILL/TAZOBAC CONSULT ACTIVE PRN (16:56)
--- NOTE | 2021-02-10 17:09 | Billing Data ---
Date of Service February 10, 2021 Coding Level of Care Code 07142 Subseq Hosp Care Lvl 1
[2021-02-10] MEDS: MAGNESIUM OXIDE 400 MG TAB PO SCH (20:36)
[2021-02-10] MEDS: PIPERACILLIN/TAZOBACTAM 4.5 GM in DEXTROSE 5% 100 ML IV SCH (20:39)
[2021-02-11] MEDS: PHENobarbital sodium 65 MG/ML VIAL IV PRN (04:28)
[2021-02-11 05:09] LABS: Basophils # (auto) 0.06 K/uL (0-0.2); Basophils % (auto) 0.4 %; Eosinophils # (auto) 0.02 K/uL (0-0.5); Eosinophils % (auto) 0.1 %; Hematocrit (blood only) 42.8 % (42-52); Hemoglobin 13.5 g/dL (14.0-18.0); Immature Granulocytes # (auto) 0.28 K/uL (0.00-0.02); Immature Granulocytes % (auto) 1.8 %; Lymphocytes # (auto) 1.47 K/uL (1.2-3.4); Lymphocytes % (auto) 9.5 %; Mean Corpuscular Hemoglobin 33.8 pg (25-34); Mean Corpuscular Hgb Conc 31.5 g/dL (32-36); Mean Corpuscular Volume 107.3 fL (80-100); Mean Platelet Volume 10.3 fL (7.4-10.4); Monocytes # (auto) 1.29 K/uL (0.11-0.59); Monocytes % (auto) 8.3 %; Neutrophils # (auto) 12.33 K/uL (1.4-6.5); Neutrophils % (auto) 79.9 %; Platelet Count 405 K/uL (130-400); RDW Coefficient of Variation 13.2 % (11.5-14.5); RDW Standard Deviation 52.4 fL (36.4-46.3); Red Blood Count 3.99 M/uL (4.7-6.1); White Blood Count 15.45 K/uL (4.8-10.8)
[2021-02-11 05:28] LABS: BUN Creatinine Ratio 44.7 (10-20); Blood Urea Nitrogen 13 mg/dl (7-18); Calcium 8.1 mg/dl (8.5-10.1); Carbon Dioxide 30 mmol/L (21-32); Chloride 103 mmol/L (98-107); Est GFR (African American) > 150.0 ml/min; Est GFR (Non-African American) 149.4 ml/min; Glucose 104 mg/dl (70-99); Magnesium 2.5 mg/dl (1.8-2.4); Phosphorus 2.8 mg/dl (2.5-4.9); Potassium 4.3 mmol/L (3.5-5.1); Sodium 139 mmol/L (136-145)
[2021-02-11] MEDS: PIPERACILLIN/TAZOBACTAM 4.5 GM in DEXTROSE 5% 100 ML IV SCH (05:33)
[2021-02-11] MEDS ORDERED: ENOXAPARIN 80 MG/0.8 ML SYR SQ SCH (06:00)
[2021-02-11] MEDS: FOLIC ACID 1 MG TAB PO SCH (08:49)
[2021-02-11] MEDS: DOCUSATE SODIUM SYRUP 100 MG/10 ML UDC PO SCH (08:49)
[2021-02-11] MEDS: PROPRANOLOL HCL 10 MG TAB PO SCH (08:49)
[2021-02-11] MEDS: THIAMINE HCL 100 MG TAB PO SCH (08:49)
--- NOTE | 2021-02-11 09:03 | Hospitalist Progress Note ---
Date of Service February 11, 2021 Assessment & Plan (1) Alcohol withdrawal delirium: Mario Verduzco is a 55-year-old male with past medical history of COPD, hypertension, hyperlipidemia, coronary artery disease, and [id number] smoking history; who presented to the hospital for evaluation and endobronchial ultrasound. Subsequently had worsening of condition given alcohol history and developed acute alcohol withdrawal and delirium tremens Pulmonary mass: -CT lung from 02/05 demonstrating pathologic mediastinal hilar and right axillary lymphadenopathy, suspected central pulmonary mass with obstruction of the right upper lobe bronchus, multiple bilateral pulmonary nodules -MRI brain concerning for 3 mm focus of subcortical enhancement within the left frontal lobe, and 12 mm lesion within the right frontoparietal calvarium, and 6 mm lesion within the right lateral orbital process all concerning for metastatic disease -EBUS biopsy showing squamous cell carcinoma -Findings and imaging concerning for metastatic SCC Alcohol withdrawal delirium tremens: -Intubated and sedated in the ICU and was able to be extubated 02/09, still struggling with increased work of breathing and altered mental status -Continue management per ICU provider; phenobarbital for alcohol withdrawal. Goals of Care Patient with metastatic squamous cell carcinoma, stage 4 disease struggling from alochol withdrawal and disease burden, Overall patient's status is very tenuous, brother who is decision maker for patient understands this and wishes us to continue to do what we can for him but would not want us to perform any CPR and reintubate him for any reason. If it gets to that point would want us to just focus on keeping him comfortable. Ideally as he gets further out from this alcohol withdrawal will be able to communicate more with him and he can make further treatment decisions for himself. CODE STATUS: DNR/DNI (2) Pulmonary mass: Admission and Anticipated Discharge Date Admission Date: February 06, 2021 Subjective Mr. Knutson is more alert this morning, trying to communicate. He is sprawled with his legs out of bed and mask off of his face, O2 sats in low 80's. Trying to communicate but unintelligibly. He does shake his head when asked about pain but does nod to shortness of breath. Replaced mask and O2 sats returned to high 80's. Discussed his care with brother who reaffirmed that he wants him to be DNR/DNI and should he decompensate further would like us to focus soley on comfort but for now continue to treat his alcohol withdrawal and any possible underlying infection. Review of Systems Review of Systems: All systems reviewed & are unremarkable except as noted in HPI & below Physical Exam Physical Exam: Constitutional: 55 year old man in moderate respiratory distress with abdominal breathing and tachypnea, unable to communicated and participate fully with exam. Eyes: PERRL, conjunctivae normal, anicteric sclerae ENMT: external ear and nose normal, oropharynx normal Respiratory: + labored breathing; + abnormal respiratory effort (abdominal breathing, accessory muscle use and tachypneic) and + not able to speak in complete sentence Auscultation: + crackles, + wheezes and + bronchovesicular breath sounds Cardiovascular: Rate/Rhythm: regular rhythm and + tachycardic Heart Sounds: no click, no gallop and no murmur Vessels: no JVD Extremities: no edema Gastrointestinal (Abdomen): Percussion/Palpation: abdomen soft; abdomen nontender Skin: no rashes, warm and dry Results & Data [facility]) Vital Signs (Past 12 Hours) Vital Signs Temp Pulse BP Pulse Ox 02/11/21 06:11 125 H 131/90 91 02/11/21 05:11 119 H 133/92 91 02/11/21 04:12 36.7 C 109 H 113/62 94 02/11/21 03:11 117 H 128/72 90 02/11/21 02:11 113 H 138/79 92 02/11/21 01:11 108 H 132/88 90 02/11/21 00:12 37.1 C 102 H 116/74 91 02/10/21 23:11 97 H 111/77 92 02/10/21 22:11 92 H 126/74 94 02/10/21 21:11 97 H 104/73 94 Resident Activity Tracking Resident Involvement: Resident Care Provided Care Provided: Adult Hospital Medicine
[2021-02-11 09:55] VITALS: BP 145/89; TEMP 97.7
[2021-02-11 09:59] VITALS: PULSE 0; O2SAT 64
--- NOTE | 2021-02-11 10:09 | Communication Note ---
Date of Service: February 11, 2021 Spoke with Nicolás Knutson, patient's brother and next of kin and informed him of his brother's passing. He is going to make arrangements about choosing a home and will get back to us shortly. He is declining an autopsy.
--- NOTE | 2021-02-11 10:12 | Death Pronouncement Note ---
Date of Service February 11, 2021 Pronouncement Note Admission Date Admission Date: February 06, 2021 Date and Time of Date of : 02/11/21 Time of : 09:46 PCOD Preliminary cause of : Respiratory failure with hypoxia Contributing Factors (1) Squamous cell carcinoma of lung, stage IV: (2) Tobacco use disorder: (3) Alcohol withdrawal delirium: (4) Alcohol dependence: (5) CAD (coronary artery disease): Hospital Course Hospital Course: Patient is a 55-year-old male with a past medical history of hypertension coronary artery disease nicotine dependence and alcohol dependence who presents for evaluation of a right upper lobe mass. Patient developed delirium tremens as he would consume 1 pint of vodka daily and had cut back but reached a point of abstinence who was intubated for airway protection. A supraclavicular lymph node biopsy was obtained and pathology confirmed the diagnosis of metastatic squamous cell carcinoma stage IV. Patient was successfully liberated from the ventilator and discussions with family the patient would not want heroic measures undertaken nor reintubation for acute hypoxic respiratory failure as this is unamenable to surgery. Patient was on antibiotics for any pulmonary infection related to obstruction however he continued to decompensate with acute hypoxia and eventually entered a bradycardic rhythm and at 0946 on February 11, 2021 family was contacted and autopsy was declined Additional Data Confirmation of : no pulse, no respirations, no heart sounds and pupils fixed and dilated Family: contacted Attending/PCP notified?: Yes Attending physician: Marcin Cochran DO Coding Level of Care Code D/C Day Management <30 mins Diagnoses Squamous cell carcinoma of lung, stage IV C34.90 Tobacco use disorder F17.200 Alcohol withdrawal delirium F10.231 Alcohol dependence F10.20 CAD (coronary artery disease) I25.10
[2021-02-11] MEDS: NORMOSOL-R 1,000 ML IV SCH (10:24)
[2021-02-11] MEDS ORDERED: fentaNYL citrate 100 MCG/2 ML VIAL IV ONE (12:10)
[2021-02-11] MEDS ORDERED: MIDAZOLAM HCL 5 MG/ML 1 ML VIAL IV ONE (12:10)
[2021-02-11] MEDS ORDERED: SUCCINYLCHOLINE CHLORIDE 20 MG/ML 10 ML VIAL IV ONE (12:10)
--- NOTE | 2021-02-11 12:25 | Discharge Summary ---
Date of Service February 11, 2021 Admission HPI Per Admitting Provider This is a 55-year-old male with past medical history of reflux, hyperlipidemia, hypertension, 120-year pack smoking history that presents today from the director of [employer] office with a chief complaint of weakness. Patient is an decent historian. Patient tells me that he started having significant generalized weakness along with shortness of breath. Had difficulty with any sort of ambulation. Patient was seen on 01/17 at his primary care physician, work-up was ordered but was essentially unrevealing outside of some mild desaturation with ambulation. He was also found to have a calcium of 10.4 but no real etiology was found. Patient was giving albuterol and Trelegy did assumption that he had a worsening COPD. Patient later admitted that he did not take these medications as he was afraid of the side effects. He was ultimately referred to his director of strategy & mobile for further work-up. Patient saw Dr. Hernandez earlier today. It was a patient was found to have had significant weight loss along with worsening shortness of breath. CT scan was performed which showed a large central pulmonary was with obstruction of the right upper bronchus along with multiple pulmonary nodules felt to be possible metastasis. Patient was subsequently sent to the hospital for further evaluation. Repeat CT angiogram was performed, patient does not have any PE but he was noted to have lung mass as noted. There was also suggestion of possible multifocal lytic skeletal metastasis, most significant in the right pedicle and transverse process of T3. CT the head is negative for metastasis, but CT the end of pelvis shows multiple lytic lesions, most notably in the sacrum. Patient serum calcium and worsen to 14.1. Patient is now being admitted for further work-up. EBUS was scheduled by Dr. Hernandez for 12 PM tomorrow. Patient himself is very weak. He has difficulty even with sitting up. He denies any shortness of breath at rest but even the slightest amount of activity will make him dyspneic. He is denying any pain. He does have a dry cough, denies hemoptysis. Other issues such as abdominal pain, chest pain, fever or chills were negative. He tells me he did not note the weight loss but was found to be approximately 30 pounds down on evaluation today. Admission Exam Per Admitting Provider Constitutional: + ill appearing and cooperative; no acute distress Neck: trachea midline, no thyromegaly Respiratory: + labored breathing Auscultation: + breath sounds absent (very faint, RUL), + diminished lung sounds and + crackles (bases) Cardiovascular: Rate/Rhythm: regular rate and regular rhythm Vessels: no JVD and no carotid bruit Extremities: no edema Gastrointestinal (Abdomen): normal bowel sounds, soft, nontender, no hepa tosplenomegaly Musculoskeletal: Extremities: + clubbing Skin: no rashes, warm and dry Neurologic: PERRL, EOMI, accommodation nl, no face palsy, no dysarthria awake Psychiatric: A+Ox3, euthymic affect Principal Diagnosis Metastatic Squamous cell carcinoma, acute alcohol withdrawal, acute respiratory failure Discharge Exam Physical Exam: Constitutional: 55 year old man in moderate respiratory distress with abdominal breathing and tachypnea, unable to communicated and participate fully with exam. Eyes: PERRL, conjunctivae normal, anicteric sclerae ENMT: external ear and nose normal, oropharynx normal Respiratory: + labored breathing; + abnormal respiratory effort (abdominal breathing, accessory muscle use and tachypneic) and + not able to speak in complete sentence Auscultation: + crackles, + wheezes and + bronchovesicular breath sounds Cardiovascular: Rate/Rhythm: regular rhythm and + tachycardic Heart Sounds: no click, no gallop and no murmur Vessels: no JVD Extremities: no edema Gastrointestinal (Abdomen): Percussion/Palpation: abdomen soft; abdomen nontender Skin: no rashes, warm and dry Discharge Data Allergies Allergy/AdvReac Type Severity Reaction Status Date / Time No Known Drug Allergies Allergy Verified 02/06/21 14:02 Consultations 02/06/21 13:48 ED Decision to Admit Stat 02/06/21 15:29 Consult Pulmonology Routine 02/07/21 16:26 Consult Radiology Routine 02/09/21 08:21 Consult Palliative Care Routine Procedures Performed Operation Date: 02/07/21 11:00 <No data on this case meets the specified criteria> Ordered Studies 02/06/21 10:52 CT abd pelvis IV con only Stat 02/06/21 10:53 CT angio chest PE protocol Stat 02/06/21 11:10 CT head/brain wo/w con Stat 02/08/21 US FNA lymph node Routine 02/08/21 03:02 MR brain wo/w con Routine Hospital Course (1) Alcohol withdrawal delirium: Mario Verduzco is a 55-year-old male with past medical history of COPD, hypert ension, hyperlipidemia, coronary artery disease, and [id number] smoking history; who presented to the hospital for evaluation and endobronchial ultrasound. Subsequently had worsening of condition given alcohol history and developed acute alcohol withdrawal and delirium tremens Pulmonary mass: -CT lung from 02/05 demonstrating pathologic mediastinal hilar and right axillary lymphadenopathy, suspected central pulmonary mass with obstruction of the right upper lobe bronchus, multiple bilateral pulmonary nodules -MRI brain concerning for 3 mm focus of subcortical enhancement within the left frontal lobe, and 12 mm lesion within the right frontoparietal calvarium, and 6 mm lesion within the right lateral orbital process all concerning for metastatic disease -EBUS biopsy showing squamous cell carcinoma -Findings and imaging concerning for metastatic SCC Alcohol withdrawal delirium tremens: -Intubated and sedated in the ICU and was able to be extubated 02/09, still struggling with increased work of breathing and altered mental status -Continue management per ICU provider; phenobarbital for alcohol withdrawal. Goals of Care Patient with metastatic squamous cell carcinoma, stage 4 disease struggling from alochol withdrawal and disease burden, Overall patient's status is very tenuous, brother who is decision maker for patient understands this and wishes us to continue to do what we can for him but would not want us to perform any CPR and reintubate him for any reason. If it gets to that point would want us to just focus on keeping him comfortable. Ideally as he gets further out from this alcohol withdrawal will be able to communicate more with him and he can make further treatment decisions for himself. Patient continued to struggle with his respiratory status, was placed on abx for possible infection, was more alert this morning but continued to do poorly from a breathing standpoint and eventually became more hypoxic which led to a bradycardia and eventually a cardiac arrest. Per patient's families wishes we did not reintubate or perform CPR and he at 0946. Family was contacted by myself and they are declining autopsy and working on arrangements currently. (2) Pulmonary mass: Total Time Total Time Spent Total Time Spent (In Minutes): <30 Discharge Plan Discharge Items Patient Disposition: Discharge Diagnosis: Respiratory failure multifactorial, metabolic encephalopathy, metastatic squamous cell carcinoma and possible pulmonary embolism Addtl Attending Provider Instructions: Mr. Knutson unfortunately had a respiratory collapse and bradycardia leading to cardiac arrest. This was likely secondary to his disease burden plus acute encephalopathy plus or minus a possible pulmonary embolism. Talked to his brother Nicolás who is next of kin, they are requesting not to have an autopsy done at this time and are working to find a home now. Supervising Physician Co-Signing Physician Notes case d/w dr fritz. pt passed prior to my seeing him. see above. Resident Activity Tracking Resident Involvement: Resident Care Provided Care Provided: Adult Hospital Medicine
== END 2021-02-11 12:11 | disposition expired | DRG 166 ==
LOC: ED 10:39 → 2S 14:29 → SUATTDRO 14:29 → 2S 15:06 → 1E 02-07 12:07